=== PATIENT | female | born 1940 | race Asian ===

== ENCOUNTER 2020-07-22 12:01 | Outpatient (REF) | payer MEDICARE, SELFPAY ==
--- NOTE | 2020-07-22 12:10 | XR_ITS ---
EXAMINATION: XR CHEST CLINICAL INFORMATION: Dyspnea COMPARISON: CT of November 07, 2017 and chest x-ray of November 07, 2017 TECHNIQUE: 2 views of the chest were obtained. FINDINGS: No significant abnormality is noted involving the heart, lungs, mediastinum, bony thorax or soft tissues. There is some mild elevation posterior aspect of the left hemidiaphragm. IMPRESSION: No acute disease.
== END 2020-07-22 12:02 | disposition home or self-care (01) ==
LOC: HO.XRAY 12:01
PROVIDERS: PCP Internal Medicine; Visit Provider Internal Medicine
DX: R06.00 Dyspnea, unspecified (principal)
CPT/HCPCS: 71046

== ENCOUNTER 2020-10-14 07:58 | Outpatient (REF) | payer MEDICARE, SELFPAY ==
[2020-10-14 08:39] LABS: MANUAL DIFF FLAG NO
[2020-10-14 08:41] LABS: Basophils Percent Auto 0.3 % (0-2); Eosinophils Absolute Auto 0.2 X10*3/uL (0.0-0.4); Eosinophils Percent Auto 2.6 % (0-4); Hematocrit 34.7 % (37-47); Hemoglobin 11.6 g/dl (12.0-16.0); Imm Gran Abs Auto 0.02 X10*3/uL (0.00-0.03); Imm Gran Pct Auto 0.3 % (0.0-0.4); Lymphocytes Absolute Auto 2.5 X10*3/uL (1.2-4.9); Lymphocytes Percent Auto 36.7 % (20-40); Mean Corpuscular HGB Conc 33.4 g/dl (31.0-35.0); Mean Corpuscular Hemoglobin 30.9 pg (27.0-33.0); Mean Corpuscular Volume 92.5 fL (80-98); Mean Platelet Volume 9.4 fL (9.4-12.3); Monocytes Absolute Auto 0.5 X10*3/uL (0.1-1.2); Monocytes Percent Auto 7.6 % (2-11); Neutrophils Absolute Auto 3.6 X10*3/uL (2.0-8.3); Neutrophils Percent Auto 52.5 % (45-73); Platelet Count 306 X10*3/uL (160-400); Red Blood Count 3.75 X10*6/uL (4.20-5.50); Red Cell Distribution Width 13.5 % (11.0-16.0); White Blood Count 6.8 X10*3/uL (4.8-10.8)
[2020-10-14 09:15] LABS: Glucose Urine UA NEG (NEG); Leukocyte Esterase Urine 1+ (NEG); Nitrite Urine NEG (NEG); PH 6.5 (5.0-8.0); Specific Gravity - Urine 1.015 (1.005-1.025); Urine Blood NEG (NEG); Urine Ketones NEG (NEG); Urine Protein NEG (NEG-TRACE)
[2020-10-14 09:16] LABS: Appearance Urine CLEAR; Color Urine YELLOW
[2020-10-14 09:26] LABS: RBC Urine 0-2 /HPF (0); Squamous Epithelial Cell Urine 1+ /LPF
[2020-10-14 09:30] LABS: Alanine Aminotransferase 15 U/L (0-31); Albumin Level 4.3 g/dL (3.5-5.0); Alkaline Phosphatase 37 U/L (39-117); Anion Gap 16 (12-20); Aspartate Amino Transferase 22 U/L (5-31); Bilirubin Total 0.6 mg/dL (0.0-1.0); Blood Urea Nitrogen 16 mg/dL (9-16); Calcium 9.3 mg/dL (8.4-10.2); Carbon Dioxide 25 mmol/L (22-29); Chloride 104 mmol/L (96-108); Cholesterol 145 mg/dL; Estimated Glomerular Filt Rate 46; Glucose Fasting 105 mg/dL (60-99); HDL Cholesterol 52 mg/dL; LDL Cholesterol Calculated 74 mg/dl; Potassium 4.2 mmol/l (3.3-5.1); Sodium 141 mmol/L (135-145); Total Protein 7.2 g/dL (6.5-8.0); Triglycerides 99 mg/dL
[2020-10-14 09:42] LABS: Creatinine Urine 56.22 mg/dL; Microalbum/Creatinine Ratio Ur 14.2 ug/mg cr
[2020-10-14 09:53] LABS: TSH reflex Free T4 0.74 mIU/mL (0.32-4.0)
== END 2020-10-14 07:59 | disposition home or self-care (01) ==
LOC: HO.LAB 07:58
PROVIDERS: PCP Internal Medicine; Visit Provider Internal Medicine
DX: E11.22 Type 2 diabetes mellitus with diabetic chronic kidney disease (principal); I12.9 Hypertensive chronic kidney disease with stage 1 through stage 4 chronic kidney disease, or unspecified chronic kidney disease; N18.2 Chronic kidney disease, stage 2 (mild); Z79.4 Long term (current) use of insulin; E78.00 Pure hypercholesterolemia, unspecified; K21.9 Gastro-esophageal reflux disease without esophagitis; M81.0 Age-related osteoporosis without current pathological fracture
CPT/HCPCS: 36415; 80053; 80061; 81001; 82043; 82306; 84443; 85025; 87086; 87147

== ENCOUNTER 2020-11-09 | Outpatient (REF) | payer MEDICARE, MEDICAID, SELFPAY | END 2020-11-09 00:01 | disposition home or self-care (01) | LOC: HO.VC | PROVIDERS: Visit Provider Internal Medicine | DX: Z23 Encounter for immunization (principal) | CPT/HCPCS: 0011A ==

== ENCOUNTER 2020-11-16 09:27 | Outpatient (REF) | payer MEDICARE, SELFPAY ==
--- NOTE | ~2020-11-16 | MM_ITS ---
EXAMINATION: MM SCREENING DIGITAL BREAST TOMOSYNTHESIS, BILATERAL CLINICAL INFORMATION: Screening. Asymptomatic. The lifetime risk of breast cancer based on the Tyrer-Cuzick Model is 1.5%. COMPARISON: Mammography: 04/08/2019 and studies dating back to 03/06/2013 TECHNIQUE: Digital breast tomosynthesis is performed in both the craniocaudal and mediolateral oblique views along with computer-aided detection (CAD). Synthesized 2D images are generated from the tomosynthesis. FINDINGS: There are scattered areas of fibroglandular density (ACR BI-RADS breast composition Category b). There is a stable parenchymal pattern present with multiplicity and bilaterality of calcifications as well as grouping of stable calcifications anterior aspect of the left breast associated with a density. A few new vascular calcifications are seen mid left breast on mediolateral oblique view just inferior to nipple line. MM/MM tomosynthesis screening BI IMPRESSION: There are no significant changes from prior study. ASSESSMENT: BI-RADS 2: Benign. RECOMMENDATION: Routine annual mammography screening. This patient's information was entered into a reminder system with a target due date for their next mammogram.
== END 2020-11-16 09:28 | disposition home or self-care (01) ==
LOC: HO.MAMMO 09:27
PROVIDERS: PCP Internal Medicine; Visit Provider Internal Medicine
DX: Z12.31 Encounter for screening mammogram for malignant neoplasm of breast (principal)
CPT/HCPCS: 77063; 77067

== ENCOUNTER 2020-12-07 | Outpatient (REF) | payer MEDICARE, MEDICAID, SELFPAY | END 2020-12-07 00:01 | disposition home or self-care (01) | LOC: HO.VC | PROVIDERS: Visit Provider Internal Medicine | DX: Z23 Encounter for immunization (principal) | CPT/HCPCS: 0012A ==

== ENCOUNTER 2020-12-31 07:17 | Outpatient (REF) | payer MEDICARE, SELFPAY ==
[2020-12-31 07:52] LABS: Basophils Percent Auto 0.5 % (0-2); Eosinophils Absolute Auto 0.4 X10*3/uL (0.0-0.4); Eosinophils Percent Auto 5.4 % (0-4); Hematocrit 36.4 % (37-47); Hemoglobin 12.1 g/dl (12.0-16.0); Imm Gran Abs Auto 0.02 X10*3/uL (0.00-0.03); Imm Gran Pct Auto 0.2 % (0.0-0.4); Lymphocytes Absolute Auto 3.1 X10*3/uL (1.2-4.9); Lymphocytes Percent Auto 37.4 % (20-40); MANUAL DIFF FLAG NO; Mean Corpuscular HGB Conc 33.2 g/dl (31.0-35.0); Mean Corpuscular Hemoglobin 30.9 pg (27.0-33.0); Mean Corpuscular Volume 92.9 fL (80-98); Mean Platelet Volume 9.4 fL (9.4-12.3); Monocytes Absolute Auto 0.7 X10*3/uL (0.1-1.2); Monocytes Percent Auto 7.9 % (2-11); Neutrophils Percent Auto 48.6 % (45-73); Platelet Count 301 X10*3/uL (160-400); Red Blood Count 3.92 X10*6/uL (4.20-5.50); Red Cell Distribution Width 12.8 % (11.0-16.0); White Blood Count 8.2 X10*3/uL (4.8-10.8)
[2020-12-31 08:03] LABS: Glucose Urine UA NEG (NEG); Leukocyte Esterase Urine 1+ (NEG); Nitrite Urine NEG (NEG); Specific Gravity - Urine 1.015 (1.005-1.025); UACC Culture Trigger YES; Urine Blood NEG (NEG); Urine Ketones NEG (NEG); Urine Protein NEG (NEG-TRACE)
[2020-12-31 08:07] LABS: Appearance Urine CLEAR; Color Urine YELLOW
[2020-12-31 08:25] LABS: Creatinine Urine 57.21 mg/dL; Microalbum/Creatinine Ratio Ur 8.7 ug/mg cr
[2020-12-31 08:34] LABS: Bacteria Urine TRACE /LPF; RBC Urine 0-2 /HPF (0); Squamous Epithelial Cell Urine 1+ /LPF
[2020-12-31 09:33] LABS: Alanine Aminotransferase 15 U/L (0-31); Albumin Level 4.3 g/dL (3.5-5.0); Alkaline Phosphatase 37 U/L (39-117); Anion Gap 15 (12-20); Aspartate Amino Transferase 20 U/L (5-31); Bilirubin Total 0.6 mg/dL (0.0-1.0); Blood Urea Nitrogen 20 mg/dL (9-16); Calcium 9.5 mg/dL (8.4-10.2); Carbon Dioxide 27 mmol/L (22-29); Chloride 105 mmol/L (96-108); Cholesterol 132 mg/dL; Estimated Glomerular Filt Rate 43; Glucose Fasting 87 mg/dL (60-99); HDL Cholesterol 39 mg/dL; LDL Cholesterol Calculated 72 mg/dl; Potassium 4.5 mmol/L (3.3-5.1); Sodium 142 mmol/L (135-145); Total Protein 7.2 g/dL (6.5-8.0); Triglycerides 106 mg/dL
[2020-12-31 09:53] LABS: TSH reflex Free T4 1.18 uIU/mL (0.32-4.0)
== END 2020-12-31 07:18 | disposition home or self-care (01) ==
LOC: HO.LAB 07:17
PROVIDERS: PCP Internal Medicine; Visit Provider Internal Medicine
DX: E78.00 Pure hypercholesterolemia, unspecified (principal); E11.22 Type 2 diabetes mellitus with diabetic chronic kidney disease; I12.9 Hypertensive chronic kidney disease with stage 1 through stage 4 chronic kidney disease, or unspecified chronic kidney disease; N18.2 Chronic kidney disease, stage 2 (mild); Z79.4 Long term (current) use of insulin
CPT/HCPCS: 36415; 80053; 80061; 81001; 81003; 82043; 84443; 85025; 87086; 87147

== ENCOUNTER → 2021-02-27 07:45 | Outpatient (REF) | payer MEDICARE, SELFPAY ==
--- NOTE | 2021-02-27 07:49 | CA_ITS ---
Transthoracic Echocardiogram Patient (Last, First, Middle): Sujatha Wolfe D Gender: Female Date of : 1940 Age: 81 Procedure Date: 02/27/2021 Procedure Type: Transthoracic Echocardiogram Location: OP Height: 144.78 cm Weight: 49.9 kg BSA: 1.39 m2 Heart Rate: bpm BP: 120 / 80 mmHg Chief Airport Guide: JENNY Referring MD: Todd Thompson MD Symptoms: R06.00 - Dyspnea, unspecified Study Quality: Fair ECG Rhythm: Sinus Conclusions: - The left ventricular systolic function is normal. The visually estimated ejection fraction is between 60-65%. - There is mild calcification of the aortic valve. - No obvious valvular pathology seen on this study. Findings Left Ventricle Normal left ventricular cavity size. There is normal left ventricular wall thickness. The left ventricular systolic function is normal. The visually estimated ejection fraction is between 60-65%. The calculated ejection fraction is 61% by biplane method. There is no evidence of regional wall motion abnormalities. E/E prime ratio is between 8 and 15 consistent with indeterminate filling pressures. Evidence suggests grade I (mild) diastolic dysfunction. Right Ventricle Normal right ventricular cavity size and systolic function. Atria The left atrium is normal in size. The right atrium is normal in size. Aortic Valve There is a normal trileaflet aortic valve. There is mild calcification of the aortic valve. There is no aortic valve stenosis. There is no aortic valve regurgitation. Mitral Valve There is mild mitral annular calcification. There is no mitral valve regurgitation. There is no mitral valve stenosis. Pulmonic Valve The pulmonic valve was not well visualized. Tricuspid Valve There is trace tricuspid valve regurgitation. The pulmonary artery systolic pressure is normal. Great Vessels The aortic annulus, sinuses of valsalva, and asc aorta are normal in size. Venous The inferior vena cava is normal in size and collapses greater than 50% with inspiration. Pericardium/Pleural Prominent epicardial adipose tissue noted. There is no evidence of pericardial effusion. Prior Study Comparison No significant change compared to prior study dated: 08/15/2013. Recommendations, Care & Conclusions No obvious valvular pathology seen on this study. Measurements 2D Linear Measurements IVSd: 0.89 0.6-0.9/0.6-1.0 cm LVIDd: 4.01 3.9-5.3/4.2-5.9 cm LVIDd Index: 2.88 2.4-3.2/2.2-3.1 cm/m2 LVIDs: 2.62 2.0-3.6 cm LVPWd: 1.34 0.7-1.1 cm Ao Root: 2.60 2.1-3.5 cm LA Diam: 2.60 2.7-3.8/3.0-4.0 cm LAIDs Index: 1.87 1.5-2.3 cm/m2 LV Mass: 185.51 67-162/88-224 g LV Mass Index: 133.46 43-95/49-115 g/m2 LVOT Diam: 2.00 3.0+(-)1.3 cm 2D Systolic Function EF 4C: 74.30 >55% EF 2C: 48.30 >55% EF BiP: 61.00 >55% Mitral Valve MV Pk E: 0.78 MV PK A: 1.11 MV Decel Time: 125.00 E/A: 0.70 E'Lateral: 6.96 E'Medial: 5.87 E/E' Med: 13.30 E/E' Lat: 11.20 PHT: 37.00 MVA PHT: 5.95 Decel Carlton: 6.25 Aortic Valve AoV Pk Jimy: 1.13 AoV Pk Grad: 5.00 LVOT LVOT Pk Jimy: 0.69 LVOT Mn Jimy: 0.48 LVOT VTI: 0.14 LVOT Pk Grad: 2.00 LVOT Mn Grad: 1.00 LVOT Diam: 2.00 LVOT Area: 3.14 Diastolic Function MV Pk E: 0.78 MV Pk A: 1.11 E/A: 0.70 E'Medial: 5.87 E/E' Med: 13.30 E' Laterial: 6.96 E/E' Lat: 11.20 Tricuspid Valve RA Press: 3.00 Great Vessels Aorta Ao Root-2D: 2.60 2.0-3.7 cm Ao Asc: 3.10 2.1-3.4 cm Updated in Other Vendor System with Status of Final Liban Ellis MD electronically signed on 02/28/2021 4:16:42 PM with status of Final
== END ==
LOC: HO.CARD 07:45
PROVIDERS: PCP Internal Medicine; Visit Provider Internal Medicine
DX: R06.00 Dyspnea, unspecified (principal)
CPT/HCPCS: 93306

== ENCOUNTER 2021-04-04 07:44 | Outpatient (REF) | payer MEDICARE, SELFPAY ==
[2021-04-04 08:44] LABS: MANUAL DIFF FLAG NO
[2021-04-04 08:49] LABS: Basophils Percent Auto 0.4 % (0-2); Eosinophils Absolute Auto 0.3 X10*3/uL (0.0-0.4); Eosinophils Percent Auto 3.6 % (0-4); Hematocrit 37.3 % (37-47); Hemoglobin 12.2 g/dl (12.0-16.0); Imm Gran Abs Auto 0.02 X10*3/uL (0.00-0.03); Imm Gran Pct Auto 0.3 % (0.0-0.4); Lymphocytes Absolute Auto 2.6 X10*3/uL (1.2-4.9); Lymphocytes Percent Auto 34.5 % (20-40); Mean Corpuscular HGB Conc 32.7 g/dl (31.0-35.0); Mean Corpuscular Hemoglobin 30.6 pg (27.0-33.0); Mean Corpuscular Volume 93.5 fL (80-98); Mean Platelet Volume 9.7 fL (9.4-12.3); Monocytes Absolute Auto 0.7 X10*3/uL (0.1-1.2); Monocytes Percent Auto 8.7 % (2-11); Neutrophils Absolute Auto 3.9 X10*3/uL (2.0-8.3); Neutrophils Percent Auto 52.5 % (45-73); Platelet Count 328 X10*3/uL (160-400); Red Blood Count 3.99 X10*6/uL (4.20-5.50); Red Cell Distribution Width 12.9 % (11.0-16.0); White Blood Count 7.5 X10*3/uL (4.8-10.8)
[2021-04-04 08:55] LABS: Estimated Average Glucose 123 mg/dL; Hemoglobin A1c % 5.9 %
[2021-04-04 09:02] LABS: Glucose Urine UA NEG (NEG); Leukocyte Esterase Urine TRACE (NEG); Nitrite Urine NEG (NEG); UACC Culture Trigger YES; Urine Blood TRACE (NEG); Urine Ketones NEG (NEG); Urine Protein NEG (NEG-TRACE)
[2021-04-04 09:05] LABS: Appearance Urine CLEAR; Color Urine YELLOW
[2021-04-04 09:10] LABS: Bacteria Urine 2+ /LPF; Renal Epithelial Cells Urine TRACE /LPF; Squamous Epithelial Cell Urine TRACE /LPF
[2021-04-04 09:11] LABS: Mucus Urine TRACE /LPF
[2021-04-04 09:13] LABS: Alanine Aminotransferase 9 U/L (0-31); Albumin Level 4.4 g/dL (3.5-5.0); Alkaline Phosphatase 38 U/L (39-117); Anion Gap 13 (12-20); Aspartate Amino Transferase 19 U/L (5-31); Bilirubin Total 0.2 mg/dL (0.0-1.0); Blood Urea Nitrogen 19 mg/dL (9-16); Calcium 9.8 mg/dL (8.4-10.2); Carbon Dioxide 27 mmol/L (22-29); Chloride 109 mmol/L (96-108); Cholesterol 142 mg/dL; Estimated Glomerular Filt Rate 46; Glucose Fasting 113 mg/dL (60-99); HDL Cholesterol 41 mg/dL; LDL Cholesterol Calculated 71 mg/dl; Potassium 4.9 mmol/L (3.3-5.1); Sodium 144 mmol/L (135-145); Total Protein 7.4 g/dL (6.5-8.0); Triglycerides 152 mg/dL
[2021-04-04 09:23] LABS: TSH reflex Free T4 0.64 uIU/mL (0.32-4.0); Vitamin D 25-OH Total 59.6 ng/mL (>30)
[2021-04-04 09:29] LABS: Creatinine Urine 105.06 mg/dL; Microalbum/Creatinine Ratio Ur 22.8 ug/mg cr
== END 2021-04-04 07:45 | disposition home or self-care (01) ==
LOC: HO.LAB 07:44
PROVIDERS: PCP Internal Medicine; Visit Provider Internal Medicine
DX: I12.9 Hypertensive chronic kidney disease with stage 1 through stage 4 chronic kidney disease, or unspecified chronic kidney disease (principal); N18.32 Chronic kidney disease, stage 3b; E11.22 Type 2 diabetes mellitus with diabetic chronic kidney disease; E78.00 Pure hypercholesterolemia, unspecified; K21.9 Gastro-esophageal reflux disease without esophagitis; E55.9 Vitamin D deficiency, unspecified; Z79.4 Long term (current) use of insulin
CPT/HCPCS: 36415; 80053; 80061; 81001; 81003; 82043; 82306; 83036; 84443; 85025; 87086; 87088; 87186

== ENCOUNTER 2021-07-14 08:33 | Outpatient (REF) | payer MEDICARE, SELFPAY ==
[2021-07-14 08:53] LABS: MANUAL DIFF FLAG NO
[2021-07-14 10:00] LABS: Basophils Absolute Auto 0.1 X10*3/uL (0.0-0.2); Basophils Percent Auto 0.6 % (0-2); Eosinophils Absolute Auto 0.3 X10*3/uL (0.0-0.4); Hematocrit 36.8 % (37-47); Hemoglobin 12.5 g/dl (12.0-16.0); Imm Gran Abs Auto 0.03 X10*3/uL (0.00-0.03); Imm Gran Pct Auto 0.4 % (0.0-0.4); Lymphocytes Absolute Auto 2.6 X10*3/uL (1.2-4.9); Lymphocytes Percent Auto 31.3 % (20-40); Mean Corpuscular Hemoglobin 31.1 pg (27.0-33.0); Mean Corpuscular Volume 91.5 fL (80-98); Mean Platelet Volume 9.7 fL (9.4-12.3); Monocytes Absolute Auto 0.6 X10*3/uL (0.1-1.2); Monocytes Percent Auto 7.2 % (2-11); Neutrophils Absolute Auto 4.7 X10*3/uL (2.0-8.3); Neutrophils Percent Auto 56.5 % (45-73); Platelet Count 353 X10*3/uL (160-400); Red Blood Count 4.02 X10*6/uL (4.20-5.50); Red Cell Distribution Width 12.8 % (11.0-16.0); White Blood Count 8.3 X10*3/uL (4.8-10.8)
[2021-07-14 10:12] LABS: Estimated Average Glucose 126 mg/dL
[2021-07-14 10:27] LABS: Alanine Aminotransferase 13 U/L (0-31); Albumin Level 4.4 g/dL (3.5-5.0); Alkaline Phosphatase 41 U/L (39-117); Anion Gap 11 (12-20); Aspartate Amino Transferase 21 U/L (5-31); Bilirubin Total 0.6 mg/dL (0.0-1.0); Blood Urea Nitrogen 20 mg/dL (9-16); Calcium 10.3 mg/dL (8.4-10.2); Carbon Dioxide 29 mmol/L (22-29); Chloride 104 mmol/L (96-108); Cholesterol 152 mg/dL; Estimated Glomerular Filt Rate 43; Glucose Fasting 99 mg/dL (60-99); HDL Cholesterol 40 mg/dL; LDL Cholesterol Calculated 86 mg/dl; Sodium 139 mmol/L (135-145); Total Protein 7.4 g/dL (6.5-8.0); Triglycerides 130 mg/dL
[2021-07-14 10:38] LABS: Appearance Urine CLEAR; Color Urine YELLOW; Glucose Urine UA NEG (NEG); Leukocyte Esterase Urine 1+ (NEG); Nitrite Urine NEG (NEG); Specific Gravity - Urine <= 1.005 (1.005-1.025); UACC Culture Trigger YES; Urine Blood NEG (NEG); Urine Ketones NEG (NEG); Urine Protein NEG (NEG-TRACE)
[2021-07-14 10:46] LABS: Creatinine Urine 33.29 mg/dL
[2021-07-14 11:03] LABS: RBC Urine 0 /HPF (0); Renal Epithelial Cells Urine 1+ /LPF; Squamous Epithelial Cell Urine TRACE /LPF
== END 2021-07-14 08:34 | disposition home or self-care (01) ==
LOC: HO.LAB 08:33
PROVIDERS: PCP Internal Medicine; Visit Provider Internal Medicine
DX: I12.9 Hypertensive chronic kidney disease with stage 1 through stage 4 chronic kidney disease, or unspecified chronic kidney disease (principal); N18.32 Chronic kidney disease, stage 3b; E11.22 Type 2 diabetes mellitus with diabetic chronic kidney disease; N18.2 Chronic kidney disease, stage 2 (mild); K21.9 Gastro-esophageal reflux disease without esophagitis; R06.00 Dyspnea, unspecified; E78.00 Pure hypercholesterolemia, unspecified; Z20.822 Contact with and (suspected) exposure to COVID-19; Z79.4 Long term (current) use of insulin
CPT/HCPCS: 36415; 80053; 80061; 81001; 82043; 83036; 84443; 85025; 87086; 87147; U0005

== ENCOUNTER 2021-10-16 08:23 | Outpatient (REF) | payer MEDICARE, SELFPAY ==
[2021-10-16 08:37] LABS: MANUAL DIFF FLAG NO
[2021-10-16 09:05] LABS: Basophils Percent Auto 0.4 % (0-2); Eosinophils Absolute Auto 0.2 X10*3/uL (0.0-0.4); Eosinophils Percent Auto 2.5 % (0-4); Hematocrit 37.8 % (37.0-47.0); Hemoglobin 12.5 g/dl (12.0-16.0); Imm Gran Abs Auto 0.04 X10*3/uL (0.00-0.03); Imm Gran Pct Auto 0.5 % (0.0-0.4); Lymphocytes Percent Auto 38.7 % (20-40); Mean Corpuscular HGB Conc 33.1 g/dl (31.0-35.0); Mean Corpuscular Hemoglobin 30.9 pg (27.0-33.0); Mean Corpuscular Volume 93.3 fL (80.0-98.0); Mean Platelet Volume 9.4 fL (9.4-12.3); Monocytes Absolute Auto 0.6 X10*3/uL (0.1-1.2); Monocytes Percent Auto 7.6 % (2-11); Neutrophils Absolute Auto 3.8 x10*3/uL (2.0-8.3); Neutrophils Percent Auto 50.3 % (45-73); Platelet Count 360 X10*3/uL (160-400); Red Blood Count 4.05 X10*6/uL (4.20-5.50); Red Cell Distribution Width 12.5 % (11.0-16.0); White Blood Count 7.6 X10*3/uL (4.8-10.8)
[2021-10-16 09:08] LABS: Appearance Urine CLEAR; Color Urine YELLOW; Glucose Urine UA NEG (NEG); Leukocyte Esterase Urine 1+ (NEG); Nitrite Urine NEG (NEG); Specific Gravity - Urine 1.015 (1.005-1.025); UACC Culture Trigger YES; Urine Blood NEG (NEG); Urine Ketones NEG (NEG); Urine Protein NEG (NEG-TRACE)
[2021-10-16 09:16] LABS: Estimated Average Glucose 128 mg/dL; Hemoglobin A1c % 6.1 %
[2021-10-16 09:21] LABS: Creatinine Urine 107.33 mg/dL; Microalbum/Creatinine Ratio Ur 15.8 ug/mg cr
[2021-10-16 09:32] LABS: Bacteria Urine TRACE /LPF; Mucus Urine 1+ /LPF; RBC Urine 0 /HPF (0); Squamous Epithelial Cell Urine TRACE /LPF
[2021-10-16 09:33] LABS: Alanine Aminotransferase 18 U/L (0-31); Albumin Level 4.1 g/dL (3.5-5.0); Alkaline Phosphatase 41 U/L (39-117); Anion Gap 11 (12-20); Aspartate Amino Transferase 20 U/L (5-31); Bilirubin Total 0.4 mg/dL (0.0-1.0); Blood Urea Nitrogen 19 mg/dL (9-16); Calcium 10.1 mg/dL (8.4-10.2); Carbon Dioxide 30 mmol/L (22-29); Chloride 104 mmol/L (96-108); Cholesterol 149 mg/dL; Estimated Glomerular Filt Rate 41; Glucose Fasting 99 mg/dL (60-99); HDL Cholesterol 38 mg/dL; LDL Cholesterol Calculated 92 mg/dl; Potassium 4.6 mmol/L (3.3-5.1); Sodium 140 mmol/L (135-145); Total Protein 7.2 g/dL (6.5-8.0); Triglycerides 99 mg/dL
[2021-10-16 09:56] LABS: TSH reflex Free T4 0.83 uIU/mL (0.32-4.0); Vitamin D 25-OH Total 55.8 ng/mL (>30)
== END 2021-10-16 08:24 | disposition home or self-care (01) ==
LOC: HO.LAB 08:23
PROVIDERS: PCP Internal Medicine; Visit Provider Internal Medicine
DX: I10 Essential (primary) hypertension (principal); E78.00 Pure hypercholesterolemia, unspecified; E11.9 Type 2 diabetes mellitus without complications; E55.9 Vitamin D deficiency, unspecified
CPT/HCPCS: 36415; 80053; 80061; 81001; 82043; 82306; 83036; 84443; 85025; 87086

== ENCOUNTER 2021-11-17 10:38 | Outpatient (REF) | payer MEDICARE, SELFPAY ==
--- NOTE | ~2021-11-17 | MM_ITS ---
EXAMINATION: MM SCREENING DIGITAL BREAST TOMOSYNTHESIS, BILATERAL CLINICAL INFORMATION: Screening. Asymptomatic. The lifetime risk of breast cancer based on the Tyrer-Cuzick Model is under 2%. COMPARISON: Mammography: 11/16/2020, 04/08/2019, 02/24/2018 TECHNIQUE: Digital breast tomosynthesis is performed in both the craniocaudal and mediolateral oblique views along with computer-aided detection (CAD). Synthesized 2D images are generated from the tomosynthesis. Additional right MLO view is provided. FINDINGS: There are scattered areas of fibroglandular density (ACR BI-RADS breast composition Category b). There is no interval mass or architectural abnormality. Oil cyst mid lower inner right breast again seen and stable circumscribed nodule again noted right breast anterior 11:00 position. Neither breast shows interval mass or architectural abnormality or abnormal calcifications. There are bilateral vascular calcifications and some old grouped coarse calcifications retroareolar 6:00 left breast. MM/MM tomosynthesis screening BI IMPRESSION: No significant changes from prior studies. ASSESSMENT: BI-RADS 2: Benign RECOMMENDATION: Routine annual mammography screening. This patient's information was entered into a reminder system with a target due date for their next mammogram.
== END 2021-11-17 10:39 | disposition home or self-care (01) ==
LOC: HO.MAMMO 10:38
PROVIDERS: Visit Provider Internal Medicine
DX: Z12.31 Encounter for screening mammogram for malignant neoplasm of breast (principal)
CPT/HCPCS: 77063; 77067

== ENCOUNTER 2022-01-16 08:26 | Outpatient (REF) | payer OTHER, SELFPAY ==
[2022-01-16 08:53] LABS: MANUAL DIFF FLAG NO
[2022-01-16 09:35] LABS: Basophils Absolute Auto 0.1 X10*3/uL (0.0-0.2); Basophils Percent Auto 0.6 % (0-2); Eosinophils Absolute Auto 0.2 X10*3/uL (0.0-0.4); Eosinophils Percent Auto 2.7 % (0-4); Hemoglobin 12.7 g/dl (12.0-16.0); Imm Gran Abs Auto 0.02 X10*3/uL (0.00-0.03); Imm Gran Pct Auto 0.3 % (0.0-0.4); Lymphocytes Absolute Auto 2.6 X10*3/uL (1.2-4.9); Lymphocytes Percent Auto 32.9 % (20-40); Mean Corpuscular HGB Conc 33.4 g/dl (31.0-35.0); Mean Corpuscular Hemoglobin 31.1 pg (27.0-33.0); Mean Corpuscular Volume 93.1 fL (80.0-98.0); Mean Platelet Volume 9.4 fL (9.4-12.3); Monocytes Absolute Auto 0.6 X10*3/uL (0.1-1.2); Monocytes Percent Auto 7.7 % (2-11); Neutrophils Absolute Auto 4.4 x10*3/uL (2.0-8.3); Neutrophils Percent Auto 55.8 % (45-73); Platelet Count 373 X10*3/uL (160-400); Red Blood Count 4.08 X10*6/uL (4.20-5.50); Red Cell Distribution Width 12.7 % (11.0-16.0); White Blood Count 7.9 X10*3/uL (4.8-10.8)
[2022-01-16 09:41] LABS: Appearance Urine CLEAR; Glucose Urine UA NEG (NEG); Leukocyte Esterase Urine NEG (NEG); Nitrite Urine NEG (NEG); PH 6.5 (5.0-8.0); Specific Gravity - Urine <= 1.005 (1.005-1.025); Urine Blood NEG (NEG); Urine Ketones NEG (NEG); Urine Protein NEG (NEG-TRACE)
[2022-01-16 09:42] LABS: Estimated Average Glucose 126 mg/dL
[2022-01-16 09:42] LABS: Color Urine COLORLESS
[2022-01-16 10:15] LABS: Creatinine Urine 26.75 mg/dL; Microalbum/Creatinine Ratio Ur 59.8 ug/mg cr
[2022-01-16 10:23] LABS: Alanine Aminotransferase 13 U/L (0-31); Albumin Level 4.3 g/dL (3.5-5.0); Alkaline Phosphatase 38 U/L (39-117); Anion Gap 13 (12-20); Aspartate Amino Transferase 20 U/L (5-31); Bilirubin Total 0.4 mg/dL (0.0-1.0); Blood Urea Nitrogen 19 mg/dL (9-16); Calcium 10.6 mg/dL (8.4-10.2); Carbon Dioxide 29 mmol/L (22-29); Chloride 103 mmol/L (96-108); Cholesterol 163 mg/dL; Estimated Glomerular Filt Rate 45; Glucose Fasting 93 mg/dL (60-99); HDL Cholesterol 41 mg/dL; LDL Cholesterol Calculated 95 mg/dl; Sodium 140 mmol/L (135-145); Total Protein 7.5 g/dL (6.5-8.0); Triglycerides 138 mg/dL
[2022-01-16 10:35] LABS: TSH reflex Free T4 0.79 uIU/mL (0.32-4.0); Vitamin D 25-OH Total 72.6 ng/mL (>30)
== END 2022-01-16 08:27 | disposition home or self-care (01) ==
LOC: HO.LAB 08:26
PROVIDERS: PCP Internal Medicine; Visit Provider Internal Medicine
DX: E11.9 Type 2 diabetes mellitus without complications (principal); I10 Essential (primary) hypertension; E78.00 Pure hypercholesterolemia, unspecified; E55.9 Vitamin D deficiency, unspecified
CPT/HCPCS: 36415; 80053; 80061; 81003; 82043; 82306; 83036; 84443; 85025

== ENCOUNTER 2022-04-12 08:25 | Outpatient (REF) | payer OTHER, SELFPAY ==
[2022-04-12 08:42] LABS: MANUAL DIFF FLAG NO
[2022-04-12 09:01] LABS: Basophils Percent Auto 0.4 % (0-2); Eosinophils Absolute Auto 0.2 X10*3/uL (0.0-0.4); Eosinophils Percent Auto 1.6 % (0-4); Hematocrit 38.1 % (37.0-47.0); Hemoglobin 12.6 g/dl (12.0-16.0); Imm Gran Abs Auto 0.06 X10*3/uL (0.00-0.03); Imm Gran Pct Auto 0.6 % (0.0-0.4); Lymphocytes Absolute Auto 2.4 X10*3/uL (1.2-4.9); Lymphocytes Percent Auto 25.9 % (20-40); Mean Corpuscular HGB Conc 33.1 g/dl (31.0-35.0); Mean Corpuscular Hemoglobin 30.6 pg (27.0-33.0); Mean Corpuscular Volume 92.5 fL (80.0-98.0); Mean Platelet Volume 9.4 fL (9.4-12.3); Monocytes Absolute Auto 0.7 X10*3/uL (0.1-1.2); Neutrophils Absolute Auto 5.9 x10*3/uL (2.0-8.3); Neutrophils Percent Auto 63.5 % (45-73); Platelet Count 360 X10*3/uL (160-400); Red Blood Count 4.12 X10*6/uL (4.20-5.50); Red Cell Distribution Width 12.5 % (11.0-16.0); White Blood Count 9.3 X10*3/uL (4.8-10.8)
[2022-04-12 09:37] LABS: Alanine Aminotransferase 13 U/L (0-31); Albumin Level 4.4 g/dL (3.5-5.0); Alkaline Phosphatase 52 U/L (39-117); Anion Gap 13 (12-20); Aspartate Amino Transferase 21 U/L (5-31); Bilirubin Total 0.3 mg/dL (0.0-1.0); Blood Urea Nitrogen 24 mg/dL (9-16); Calcium 9.9 mg/dL (8.4-10.2); Carbon Dioxide 26 mmol/L (22-29); Chloride 105 mmol/L (96-108); Cholesterol 137 mg/dL; Estimated Glomerular Filt Rate 41; Glucose Fasting 122 mg/dL (60-99); HDL Cholesterol 42 mg/dL; LDL Cholesterol Calculated 65 mg/dl; Potassium 4.7 mmol/L (3.3-5.1); Sodium 139 mmol/L (135-145); Total Protein 7.7 g/dL (6.5-8.0); Triglycerides 151 mg/dL
[2022-04-12 09:41] LABS: Estimated Average Glucose 128 mg/dL; Hemoglobin A1c % 6.1 %
[2022-04-12 10:00] LABS: TSH reflex Free T4 0.91 uIU/mL (0.32-4.0); Vitamin D 25-OH Total 76.1 ng/mL (>30)
[2022-04-12 10:43] LABS: Appearance Urine CLEAR; Color Urine YELLOW; Glucose Urine UA NEG (NEG); Leukocyte Esterase Urine 1+ (NEG); Nitrite Urine NEG (NEG); PH 5.5 (5.0-8.0); UACC Culture Trigger YES; Urine Blood NEG (NEG); Urine Ketones NEG (NEG); Urine Protein NEG (NEG-TRACE)
[2022-04-12 11:08] LABS: Bacteria Urine TRACE /LPF; Squamous Epithelial Cell Urine TRACE /LPF
[2022-04-12 11:17] LABS: Creatinine Urine 67.82 mg/dL; Microalbum/Creatinine Ratio Ur 14.7 ug/mg cr
== END 2022-04-12 08:26 | disposition home or self-care (01) ==
LOC: HO.LAB 08:25
PROVIDERS: PCP Internal Medicine; Visit Provider Internal Medicine
DX: E78.00 Pure hypercholesterolemia, unspecified (principal); E55.9 Vitamin D deficiency, unspecified; I10 Essential (primary) hypertension; E11.9 Type 2 diabetes mellitus without complications
CPT/HCPCS: 36415; 80053; 80061; 81001; 82043; 82306; 83036; 84443; 85025; 87086; 87147

== ENCOUNTER 2022-07-05 08:31 | Outpatient (REF) | payer OTHER, SELFPAY ==
[2022-07-05 08:43] LABS: MANUAL DIFF FLAG NO
[2022-07-05 09:27] LABS: Basophils Percent Auto 0.4 % (0-2); Eosinophils Absolute Auto 0.2 X10*3/uL (0.0-0.4); Hematocrit 37.4 % (37.0-47.0); Hemoglobin 12.5 g/dl (12.0-16.0); Imm Gran Abs Auto 0.02 X10*3/uL (0.00-0.03); Imm Gran Pct Auto 0.2 % (0.0-0.4); Lymphocytes Absolute Auto 2.3 X10*3/uL (1.2-4.9); Lymphocytes Percent Auto 28.2 % (20-40); Mean Corpuscular HGB Conc 33.4 g/dl (31.0-35.0); Mean Corpuscular Hemoglobin 30.8 pg (27.0-33.0); Mean Corpuscular Volume 92.1 fL (80.0-98.0); Mean Platelet Volume 9.8 fL (9.4-12.3); Monocytes Absolute Auto 0.7 X10*3/uL (0.1-1.2); Monocytes Percent Auto 8.3 % (2-11); Neutrophils Percent Auto 60.9 % (45-73); Platelet Count 327 X10*3/uL (160-400); Red Blood Count 4.06 X10*6/uL (4.20-5.50); Red Cell Distribution Width 12.8 % (11.0-16.0); White Blood Count 8.2 X10*3/uL (4.8-10.8)
[2022-07-05 10:04] LABS: Alanine Aminotransferase 13 U/L (0-31); Albumin Level 4.4 g/dL (3.5-5.0); Alkaline Phosphatase 43 U/L (39-117); Anion Gap 17 (12-20); Aspartate Amino Transferase 21 U/L (5-31); Bilirubin Total 0.2 mg/dL (0.0-1.0); Blood Urea Nitrogen 16 mg/dL (9-16); Carbon Dioxide 27 mmol/L (22-29); Chloride 101 mmol/L (96-108); Cholesterol 138 mg/dL; Estimated Glomerular Filt Rate 44; Glucose Fasting 91 mg/dL (60-99); HDL Cholesterol 43 mg/dL; LDL Cholesterol Calculated 74 mg/dl; Potassium 4.3 mmol/L (3.3-5.1); Sodium 141 mmol/L (135-145); Total Protein 7.5 g/dL (6.5-8.0); Triglycerides 106 mg/dL
[2022-07-05 10:06] LABS: Estimated Average Glucose 131 mg/dL; Hemoglobin A1c % 6.2 %
[2022-07-05 10:16] LABS: TSH reflex Free T4 0.74 uIU/mL (0.32-4.0); Vitamin D 25-OH Total 68.9 ng/mL (>30)
[2022-07-05 10:44] LABS: Appearance Urine Clear; Color Urine Yellow; Glucose Urine UA Negative (Negative); Leukocyte Esterase Urine Moderate (2+) (Negative); Nitrite Urine Negative (Negative); PH 7.5 (5.0-9.0); UMIC TRIGGER UACC YES; Urine Blood Negative (Negative); Urine Ketones Negative (Negative); Urine Protein Negative (Neg-Trace)
[2022-07-05 11:00] LABS: Bacteria Urine None Seen (None Seen); Hyaline Casts Urine 0-2 /LPF (0-2); RBC Urine 0-2 /HPF (0-2); Squamous Epithelial Cell Urine 0-2 /HPF (0-2); WBC Urine 0-5 /HPF (0-5)
[2022-07-05 11:08] LABS: Creatinine Urine 45.98 mg/dL; Microalbum/Creatinine Ratio Ur 30.4 ug/mg cr
== END 2022-07-05 08:32 | disposition home or self-care (01) ==
LOC: HO.LAB 08:31
PROVIDERS: PCP Internal Medicine; Visit Provider Internal Medicine
DX: I10 Essential (primary) hypertension (principal); E11.9 Type 2 diabetes mellitus without complications; E78.00 Pure hypercholesterolemia, unspecified; E55.9 Vitamin D deficiency, unspecified
CPT/HCPCS: 36415; 80053; 80061; 81001; 82043; 82306; 83036; 84443; 85025

== ENCOUNTER 2022-09-14 08:24 | Outpatient (REF) | payer OTHER, SELFPAY ==
[2022-09-14 08:41] LABS: MANUAL DIFF FLAG NO
[2022-09-14 09:01] LABS: Basophils Percent Auto 0.2 % (0-2); Eosinophils Absolute Auto 0.2 X10*3/uL (0.0-0.4); Eosinophils Percent Auto 1.7 % (0-4); Hematocrit 37.8 % (37.0-47.0); Hemoglobin 12.4 g/dl (12.0-16.0); Imm Gran Abs Auto 0.04 X10*3/uL (0.00-0.03); Imm Gran Pct Auto 0.5 % (0.0-0.4); Lymphocytes Absolute Auto 2.5 X10*3/uL (1.2-4.9); Lymphocytes Percent Auto 28.8 % (20-40); Mean Corpuscular HGB Conc 32.8 g/dl (31.0-35.0); Mean Corpuscular Hemoglobin 30.5 pg (27.0-33.0); Mean Corpuscular Volume 93.1 fL (80.0-98.0); Monocytes Absolute Auto 0.6 X10*3/uL (0.1-1.2); Monocytes Percent Auto 7.1 % (2-11); Neutrophils Absolute Auto 5.4 x10*3/uL (2.0-8.3); Neutrophils Percent Auto 61.7 % (45-73); Platelet Count 414 X10*3/uL (160-400); Red Blood Count 4.06 X10*6/uL (4.20-5.50); Red Cell Distribution Width 12.9 % (11.0-16.0); White Blood Count 8.8 X10*3/uL (4.8-10.8)
[2022-09-14 09:09] LABS: Estimated Average Glucose 137 mg/dL; Hemoglobin A1C 151.1905 umol/L; Hemoglobin A1c % 6.4 %
[2022-09-14 10:01] LABS: Alanine Aminotransferase 17 U/L (0-31); Albumin Level 4.3 g/dL (3.5-5.0); Alkaline Phosphatase 46 U/L (39-117); Anion Gap 12 (12-20); Aspartate Amino Transferase 21 U/L (5-31); Bilirubin Total 0.5 mg/dL (0.0-1.0); Blood Urea Nitrogen 21 mg/dL (9-16); Calcium 9.9 mg/dL (8.4-10.2); Carbon Dioxide 27 mmol/L (22-29); Chloride 105 mmol/L (96-108); Cholesterol 164 mg/dL; Estimated Glomerular Filt Rate 46; Glucose Fasting 100 mg/dL (60-99); HDL Cholesterol 44 mg/dL; LDL Cholesterol Calculated 92 mg/dl; Potassium 4.9 mmol/L (3.3-5.1); Sodium 139 mmol/L (135-145); TSH reflex Free T4 0.67 uIU/mL (0.32-4.0); Total Protein 7.5 g/dL (6.5-8.0); Triglycerides 144 mg/dL; Vitamin D 25-OH Total 63.4 ng/mL (>30)
[2022-09-14 10:19] LABS: Appearance Urine Clear; Color Urine Yellow; Glucose Urine UA Negative (Negative); Leukocyte Esterase Urine Moderate (2+) (Negative); Nitrite Urine Negative (Negative); Specific Gravity - Urine 1.015 (1.005-1.025); UMIC TRIGGER UACC YES; Urine Blood Negative (Negative); Urine Ketones Negative (Negative); Urine Protein Negative (Neg-Trace)
[2022-09-14 10:25] LABS: Bacteria Urine None Seen (None Seen); Hyaline Casts Urine 0-2 /LPF (0-2); RBC Urine 0-2 /HPF (0-2); Squamous Epithelial Cell Urine 0-2 /HPF (0-2); UACC Culture Trigger YES
[2022-09-14 11:25] LABS: Creatinine Urine 73.38 mg/dL; Microalbum/Creatinine Ratio Ur 23.1 ug/mg cr
== END 2022-09-14 08:25 | disposition home or self-care (01) ==
LOC: HO.LAB 08:24
PROVIDERS: PCP Internal Medicine; Visit Provider Internal Medicine
DX: I10 Essential (primary) hypertension (principal); E78.00 Pure hypercholesterolemia, unspecified; E55.9 Vitamin D deficiency, unspecified; E11.9 Type 2 diabetes mellitus without complications
CPT/HCPCS: 36415; 80053; 80061; 81001; 82043; 82306; 83036; 84443; 85025; 87086

== ENCOUNTER 2022-12-06 09:41 | Emergency (ER) | payer OTHER, SELFPAY ==
--- NOTE | ~2022-12-06 | CT_ITS ---
EXAM: Noncontrast CT scan of the head and cervical spine. INDICATION: Fall with pain COMPARISON: Head CT 06/24/2014 TECHNIQUE: Axial slices were obtained from skull base to vertex and displayed. This was followed by helical, multislice, multidetector axial images from the occiput to the upper thorax. Coronal and sagittal reformats of the cervical spine in addition to coronal reformats of the head were obtained at the technologist workstation. DLP: 949 mGy-cm FINDINGS: HEAD: The interhemispheric fissure is hyperdense and thickened consistent with a subdural hematoma. There is also thickening and hyperdensity of the right tentorium consistent with subdural hematoma. There is no evidence of acute territorial infarction. No abnormal mass effect or midline shift is appreciated. Irene-white differentiation is well preserved. Again noted is a large bilobed calcified meningioma along the vertex midline which measures up to 4.2 cm in maximum dimension. The ventricular system and cortical sulci are prominent, consistent with volume loss. Mild cerebellar volume loss is also appreciated. There are areas of low density in the periventricular and subcortical white matter, most consistent with sequelae of microvascular ischemic change. The osseous structures and soft tissues are normal. There is mild to moderate calcifications of the cavernous internal carotid arteries. The visualized paranasal sinuses and mastoid air cells are well aerated. There is mucosal thickening of the visualized maxillary sinuses. SPINE: The cervical spine is visualized in its entirety. Alignment is within normal limits. Normal C1/C2 articulation. Cervical vertebral body heights are maintained. There is mild narrowing of disc spaces throughout the majority of the cervical spine. Small osteophytes and posterior disc osteophyte complexes are present throughout the cervical spine, most predominantly at the C3/C4, C4/C5 and C5/C6 level. Mild bilateral facet hypertrophy diffusely. Visualized lung apices are well aerated. Heterogeneous thyroid gland with suspected underlying thyroid nodules. CT/CT cervical spine wo IV con IMPRESSION: 1. Acute subdural hematoma of the interhemispheric fissure and right tentorium. 2. Large bilobed calcified meningioma along the vertex midline. 3. No fractures or dislocations of the cervical spine. This Critical Result was discussed with Dr. Maurice at 11:38 AM on 12/06/2022 and it was ascertained that the content and urgency of the report was understood at the time of direct communication.
[2022-12-06 09:49] VITALS: BP 152/108; PULSE 100; O2SAT 99
[2022-12-06 10:14] VITALS: BP 172/92; PULSE 96; RESP 18; TEMP 36.2; O2SAT 97; BMI 22.2
--- NOTE | 2022-12-06 11:44 | ED_ITS ---
HPI - Fall General Chief Complaint: Fall Stated Complaint: SLIP/FALL ON ICE W/HEADSTRIKE,-THINNER Time Seen by Provider: 12/06/22 10:07 Source: patient and family Mode of arrival: EMS History of Present Illness HPI Narrative: This is an 82-year-old female, not currently on any anticoagulation who sustained a mechanical fall this morning with head strike but denies any loss of consciousness. Patient states that she does has some pain to the back of the head were she landed. Related Data Home Medications Medication Instructions Recorded Confirmed dorzolamide 22.3 mg-timolol 6.8 ml ophthalmic (eye) BID 10/17/20 09/19/22 mg/mL eye drops blood sugar diagnostic (FreeStyle #10 ea 01/23/21 09/19/22 Lite Strips) Previous Rx's Medication Instructions Recorded Centrum Silver 0.4 mg-300 mcg-250 1 tab PO DAILY 90 days #90 tabs 01/26/21 mcg tablet (brinvgas-dak-AV-lycopen-lutein) blood sugar diagnostic (FreeStyle 1 strip miscellaneous TID #300 04/11/21 Lite Strips) strips guaifenesin 100 mg/5 mL oral liquid 200 mg (10 mL) PO Q6H PRN cough 10 04/14/21 days #200 mL omega-3 fatty acids-fish oil 340 1 cap PO BID #180 caps 04/16/21 mg-1,000 mg capsule (Fish Oil) ascorbate calcium (vitamin C) 500 500 mg PO DAILY 90 days #90 tabs 01/17/22 mg tablet cranberry extract 500 mg capsule 500 mg PO DAILY 90 days #90 caps 01/17/22 (Cranberry Concentrate) fluticasone propionate 110 2 puff PO BID 90 days #3 multiple 01/17/22 mcg/actuation HFA aerosol inhaler units (Flovent HFA) insulin glargine U-300 conc 300 10 unit (0.0333 mL) subcut DAILY 01/26/22 unit/mL (3 mL) subcutaneous pen 90 days #9 mL (Toujeo Max U-300 SoloStar) albuterol sulfate 90 mcg/actuation 2 puff inhalation Q6H PRN 04/23/22 aerosol inhaler shortness of breath or wheezing 90 days #3 inhalers fluticasone propionate 50 1 spray intranasal DAILY #16 grams 04/23/22 mcg/actuation nasal spray,suspension insulin glargine U-300 conc 300 10 unit (0.0333 mL) subcut DAILY 04/23/22 unit/mL (1.5 mL) subcutaneous pen #4.5 mL (Toujeo SoloStar U-300 Insulin) lisinopril 2.5 mg tablet 2.5 mg PO DAILY 90 days #90 tabs 04/23/22 pen needle, diabetic 32 gauge x #100 ea 05/13/22 (BD Shonna 2nd Gen Pen Needle) amlodipine 2.5 mg tablet 2.5 mg PO DAILY 90 days #90 tabs 05/17/22 cyanocobalamin (vitamin B-12) 100 100 mcg PO DAILY #90 tabs 05/27/22 mcg tablet (Vitamin B-12) albuterol sulfate 2.5 mg/3 mL 2.5 mg (3 mL) inhalation QID PRN 07/06/22 (0.083 %) solution for nebulization shortness of breath or wheezing 30 days #180 mL calcium carbonate 600 mg-vitamin 1 tab PO DAILY 90 days #90 tabs 07/12/22 D3 10 mcg (400 unit) tablet omeprazole 20 mg capsule,delayed 20 mg PO DAILY #90 caps 07/24/22 release dulaglutide 1.5 mg/0.5 mL 1.5 mg (0.5 mL) subcut QWEEK 13 08/02/22 subcutaneous pen injector weeks #6.5 mL (Trulicity) latanoprost 0.005 % eye drops 1 drp ophthalmic (eye) BEDTIME 08/27/22 #2.5 mL fluticasone fur. 200 mcg-umeclid 1 inh inhalation DAILY 30 days #60 09/19/22 62.5 mcg-vilant 25 mcg ea inhalat.powder (Trelegy Ellipta) loratadine 10 mg tablet 10 mg PO DAILY PRN allergy 09/19/22 symptoms 90 days #90 tabs doxycycline monohydrate 100 mg 100 mg PO BID 7 days #14 caps 10/25/22 capsule simvastatin 10 mg tablet 10 mg PO BEDTIME 90 days #90 tabs 11/05/22 metformin 500 mg tablet,extended 1,000 mg PO BID #360 tabs 12/06/22 release 24 hr Allergies Allergy/AdvReac Type Severity Reaction Status Date / Time codeine [CODEINE] AdvReac Intermediate DIZZINESS Verified 12/06/22 10:17 Review of Systems Review of Systems: Pertinent positives and negatives as stated in [facility] Past Medical History Source: nursing notes reviewed Medical History Allergic rhinitis Asthma Benign essential hypertension Chronic kidney disease, stage III (moderate) E. coli urinary tract infection GERD (gastroesophageal reflux disease) Glaucoma, left eye Macular degeneration Osteoporosis Pure hypercholesterolemia Type 2 diabetes mellitus with diabetic chronic kidney disease Surgical History No pertinent past surgical history Family History Family History Father Unknown family medical history Mother Hyperten preg NOS-unspec Heart disease Social History Social History Housing: Apartment Alcohol intake: never Patient Tobacco Use Status: Never used Tobacco Second Hand Smoke Exposure: No Advance Directives: Yes Advance Directives Information Provided: No Advance Directives on File: No service: No Current occupational status: retired Cognitive needs: No Hearing needs: No Vision needs: Yes Physical Exam Vital Signs: Vital Signs: Last Vital Signs Temp 97.2 F 12/06/22 10:14 Pulse 96 12/06/22 10:14 Resp 18 12/06/22 10:14 BP 172/92 H 12/06/22 10:14 Pulse Ox 97 12/06/22 10:14 O2 Del Method 12/06/22 10:14 BMI result Body Mass Index 22.2 VITAL SIGNS: Reviewed. GENERAL: Well developed, well nourished, in no acute distress. HEAD: Normocephalic/contusion without laceration noted to right occipital/parietal EYES: PERRLA, EOMI NECK: C-collar in place and no noted midline cervical spine tenderness LUNGS: Normal breath sounds. No adventitious sounds or accessory muscle use. SpO2<97> CARDIOVASCULAR: Regular rate and rhythm without noted murmurs, no JVD or lower extremity edema. ABDOMEN: Soft, non-tender, non-distended with bowel sounds. MUSCULOSKELETAL: No tenderness, deformities, or effusions noted on gross inspe ction. EXTREMITIES: No cyanosis, clubbing or edema. SKIN: Inspection of the skin reveals no rashes, NEUROLOGIC: Alert and oriented x 4. Strength and sensation to light touch were grossly intact x 4, there is no numbness/tingling in any the upper extremities. Medical Decision Making Medical Decision Making [facility] Narrative: 82-year-old female with mechanical fall and no neurologic symptoms. 1138: I received a call from [facility] who states that patient is noted to have a subdural hematoma with blood products located along the falc and right tentorium. C-spine was negative for acute findings and C-collar was cleared. Lab work to include COVID-19 testing initiated. C-collar was cleared. I reviewed all investigations and my interpretation is that the leukocytosis is likely reactive/stress and response. Patient is afebrile and has no other acute complaints. She is hemodynamically stable for transfer to [facility] ED and evaluation by the Trauma Service. Differential Diagnosis Please see the discussion above Consult Healthcare Provider Management of the patient was discussed with: Vending Route Driver [facility] [email or web address]: I spoke with patient placement who will send page out to the trauma team. I spoke to the trauma team who accepts patient in transfer to ED for cons ult. Lab Data Please see the discussion above 12/06/22 11:58 12/06/22 11:59 Labs: Lab Results 12/06/22 12/06/22 12/06/22 Range/Units 11:58 11:58 11:58 WBC 13.7 H (4.8-10.8) X10*3/uL RBC 4.35 (4.20-5.50) X10*6/uL Hgb 13.3 (12.0-16.0) g/dl Hct 39.0 (37.0-47.0) % MCV 89.7 (80.0-98.0) fL MCH 30.6 (27.0-33.0) pg MCHC 34.1 (31.0-35.0) g/dl RDW 13.2 (11.0-16.0) % Plt Count 351 (160-400) X10*3/uL MPV 8.9 L (9.4-12.3) fL Immature Gran % (Auto) 0.7 H (0.0-0.4) % Neut % (Auto) 78.1 H (45-73) % Lymph % (Auto) 13.3 L (20-40) % Todd % (Auto) 6.3 (2-11) % Eos % (Auto) 1.3 (0-4) % Baso % (Auto) 0.3 (0-2) % Lymph # (Auto) 1.8 (1.2-4.9) X10*3/uL Todd # (Auto) 0.9 (0.1-1.2) X10*3/uL Eos # (Auto) 0.2 (0.0-0.4) X10*3/uL Baso # (Auto) 0.0 (0.0-0.2) X10*3/uL Abs Immat Gran (auto) 0.10 H (0.00-0.03) X10*3/uL Absolute Neuts (auto) 10.7 H (2.0-8.3) x10*3/uL Absolute Nucleated RBC 0.000 (0.0-0.012) X10*3/uL Nucleated RBC % (auto) 0.0 (0.0-0.2) /100WBC PT 10.1 (10.0-13.1) SEC INR 0.9 (0.9-1.1) Sodium (135-145) mmol/L Potassium (3.3-5.1) mmol/L Chloride (96-108) mmol/L Carbon Dioxide (22-29) mmol/L Anion Gap (12-20) BUN (9-16) mg/dL Creatinine (0.5-1.4) mg/dL Estim Creat Clear Calc Estimated GFR Random Glucose (60-115) mg/dL Calcium (8.4-10.2) mg/dL Total Bilirubin (0.0-1.0) mg/dL AST (5-31) U/L ALT (0-31) U/L Alkaline Phosphatase (39-117) U/L Total Protein (6.5-8.0) g/dL Albumin (3.5-5.0) g/dL COVID-19 (YESI) Negative (Negative) COVID-19 Clin Com See Note 12/06/22 Range/Units 11:59 WBC (4.8-10.8) X10*3/uL RBC (4.20-5.50) X10*6/uL Hgb (12.0-16.0) g/dl Hct (37.0-47.0) % MCV (80.0-98.0) fL MCH (27.0-33.0) pg MCHC (31.0-35.0) g/dl RDW (11.0-16.0) % Plt Count (160-400) X10*3/uL MPV (9.4-12.3) fL Immature Gran % (Auto) (0.0-0.4) % Neut % (Auto) (45-73) % Lymph % (Auto) (20-40) % Todd % (Auto) (2-11) % Eos % (Auto) (0-4) % Baso % (Auto) (0-2) % Lymph # (Auto) (1.2-4.9) X10*3/uL Todd # (Auto) (0.1-1.2) X10*3/uL Eos # (Auto) (0.0-0.4) X10*3/uL Baso # (Auto) (0.0-0.2) X10*3/uL Abs Immat Gran (auto) (0.00-0.03) X10*3/uL Absolute Neuts (auto) (2.0-8.3) x10*3/uL Absolute Nucleated RBC (0.0-0.012) X10*3/uL Nucleated RBC % (auto) (0.0-0.2) /100WBC PT (10.0-13.1) SEC INR (0.9-1.1) Sodium 139 (135-145) mmol/L Potassium 4.5 (3.3-5.1) mmol/L Chloride 103 (96-108) mmol/L Carbon Dioxide 26 (22-29) mmol/L Anion Gap 15 (12-20) BUN 23 H (9-16) mg/dL Creatinine 1.07 (0.5-1.4) mg/dL Estim Creat Clear Calc 28.1 Estimated GFR 49 Random Glucose 114 (60-115) mg/dL Calcium 9.7 (8.4-10.2) mg/dL Total Bilirubin 0.4 (0.0-1.0) mg/dL AST 26 (5-31) U/L ALT 22 (0-31) U/L Alkaline Phosphatase 51 (39-117) U/L Total Protein 8.4 H (6.5-8.0) g/dL Albumin 4.6 (3.5-5.0) g/dL COVID-19 (YESI) (Negative) COVID-19 Clin Com Radiology Impression Radiologist Impression: My interpretation is in agreement with radiology's impression of the imaging studies. Critical Care Time Critical Care Time Critical Care Time: Yes Total Critical Care Time: 45 Attestation: I personally attest to this time spent taking care of the patient. Discharge Plan Discharge Clinical Impression: Acute subdural hematoma, Fall Patient Disposition: [facility] Transfer Details: Transfer for trauma services and subdural hematoma. Prescriptions: No Action (DME) FreeStyle Lite Strips Strip See Rx Instructions .ROUTE .MEDSUPPLY Qty: 10 Rx Instructions: As directed- In Vitro three times a day. vhtxljir-mqf-NH-lycopen-lutein [Centrum Silver] 0.4-300-250 mg-mcg-mcg tablet 1 tab PO DAILY 90 Days Qty: 90 3RF blood sugar diagnostic [FreeStyle Lite Strips] Strip 1 strip miscellaneous TID Qty: 300 12RF guaifenesin 100 mg/5 mL liquid 200 mg PO Q6H PRN (Reason: cough) 10 Days Qty: 200 1RF omega-3 fatty acids-fish oil [Fish Oil] 340-1,000 mg capsule 1 cap PO BID Qty: 180 0RF Toujeo Max U-300 SoloStar 300 unit/mL (3 mL) insulin pen 10 unit subcut DAILY 90 Days Qty: 9 3RF (DME) pen needle, diabetic [BD Shonna 2nd Gen Pen Needle] 32 gauge x 5/32 needle See Rx Instructions .ROUTE .MEDSUPPLY Qty: 100 12RF Rx Instructions: As directed once a day amlodipine 2.5 mg tablet 2.5 mg PO DAILY 90 Days Qty: 90 0RF cyanocobalamin (vitamin B-12) [Vitamin B-12] 100 mcg tablet 100 mcg PO DAILY Qty: 90 0RF calcium carbonate-vitamin D3 600 mg-10 mcg (400 unit) tablet 1 tab PO DAILY 90 Days Qty: 90 3RF omeprazole 20 mg capsule,delayed release(DR/EC) 20 mg PO DAILY Qty: 90 0RF Trulicity 1.5 mg/0.5 mL pen injector 1.5 mg subcut QWEEK 91 Days Qty: 6.5 3RF latanoprost 0.005 % drops 1 drp ophthalmic (eye) BEDTIME Qty: 2.5 1RF doxycycline monohydrate 100 mg capsule 100 mg PO BID 7 Days Qty: 14 0RF simvastatin 10 mg tablet 10 mg PO BEDTIME 90 Days Qty: 90 3RF metformin 500 mg tablet extended release 24 hr 1,000 mg PO BID Qty: 360 0RF dorzolamide-timolol 22.3-6.8 mg/mL drops ophthalmic (eye) BID albuterol sulfate 2.5 mg /3 mL (0.083 %) solution for nebulization 2.5 mg inhalation QID PRN (Reason: shortness of breath or wheezing) 30 Days Qty: 180 3RF ascorbate calcium (vitamin C) 500 mg tablet 500 mg PO DAILY 90 Days Qty: 90 3RF cranberry extract [Cranberry Concentrate] 500 mg capsule 500 mg PO DAILY 90 Days Qty: 90 3RF Flovent HFA 110 mcg/actuation HFA aerosol inhaler 2 puff PO BID 90 Days Qty: 3 3RF fluticasone propionate 50 mcg/actuation spray,suspension 1 spray intranasal DAILY Qty: 16 5RF Hayley SolZenaar U-300 Insulin 300 unit/mL (1.5 mL) insulin pen 10 unit subcut DAILY Qty: 4.5 3RF lisinopril 2.5 mg tablet 2.5 mg PO DAILY 90 Days Qty: 90 3RF albuterol sulfate 90 mcg/actuation HFA aerosol inhaler 2 puff inhalation Q6H PRN (Reason: shortness of breath or wheezing) 90 Days Qty: 3 3RF loratadine 10 mg tablet 10 mg PO DAILY PRN (Reason: allergy symptoms) 90 Days Qty: 90 3RF Trelegy Ellipta 200-62.5-25 mcg blister with device 1 inh inhalation DAILY 30 Days Qty: 60 5RF
--- NOTE | 2022-12-06 11:51 | MHC.EDTECH ---
@1148AM CALL PLACED TO [facility] PT TX LINE @ REQUEST OF DR ANAMARIA CHRISTENSEN ANSWERS, TAKES PT INFO AND ASKS TO SPEAK WITH DR ANAMARIA CONRAD TAKES OVER CALL RIGHT AWAY
--- NOTE | 2022-12-06 11:55 | MHC.EDTECH ---
@1154AM CALL RECEIVED FROM [facility] OF THE [facility] PT TX LINE ASKING TO SPEAK WITH DR ANAMARIA CONRAD TAKES OVER CALL RIGHT AWAY
--- NOTE | 2022-12-06 11:58 | MHC.EDTECH ---
PER DR CONRAD PT ACCEPTED @ [facility] TRAUMA ED DR GARCIA
[2022-12-06 12:04] LABS: MANUAL DIFF FLAG NO
[2022-12-06 12:06] LABS: Basophils Percent Auto 0.3 % (0-2); Eosinophils Absolute Auto 0.2 X10*3/uL (0.0-0.4); Eosinophils Percent Auto 1.3 % (0-4); Hemoglobin 13.3 g/dl (12.0-16.0); Imm Gran Pct Auto 0.7 % (0.0-0.4); Lymphocytes Absolute Auto 1.8 X10*3/uL (1.2-4.9); Lymphocytes Percent Auto 13.3 % (20-40); Mean Corpuscular HGB Conc 34.1 g/dl (31.0-35.0); Mean Corpuscular Hemoglobin 30.6 pg (27.0-33.0); Mean Corpuscular Volume 89.7 fL (80.0-98.0); Mean Platelet Volume 8.9 fL (9.4-12.3); Monocytes Absolute Auto 0.9 X10*3/uL (0.1-1.2); Monocytes Percent Auto 6.3 % (2-11); Neutrophils Absolute Auto 10.7 x10*3/uL (2.0-8.3); Neutrophils Percent Auto 78.1 % (45-73); Platelet Count 351 X10*3/uL (160-400); Red Blood Count 4.35 X10*6/uL (4.20-5.50); Red Cell Distribution Width 13.2 % (11.0-16.0); White Blood Count 13.7 X10*3/uL (4.8-10.8)
--- NOTE | 2022-12-06 12:17 | MHC.EDTECH ---
EKG machine not available at the time ,when obtained the EKG, patient was getting transfer to another Hospital. was not able to do EKG .Charge Nurse Aware.
[2022-12-06 12:19] LABS: Alanine Aminotransferase 22 U/L (0-31); Albumin Level 4.6 g/dL (3.5-5.0); Alkaline Phosphatase 51 U/L (39-117); Anion Gap 15 (12-20); Aspartate Amino Transferase 26 U/L (5-31); Bilirubin Total 0.4 mg/dL (0.0-1.0); Blood Urea Nitrogen 23 mg/dL (9-16); Calcium 9.7 mg/dL (8.4-10.2); Carbon Dioxide 26 mmol/L (22-29); Chloride 103 mmol/L (96-108); Creatinine Clr Calc Pharmacy 28.1; Estimated Glomerular Filt Rate 49; Glucose Random 114 mg/dL (60-115); Potassium 4.5 mmol/L (3.3-5.1); Sodium 139 mmol/L (135-145); Total Protein 8.4 g/dL (6.5-8.0)
[2022-12-06 12:21] LABS: INTERNATIONAL NORM RATIO 0.9 (0.9-1.1); Prothrombin Time 10.1 SEC (10.0-13.1)
[2022-12-06 12:22] LABS: COVID-19 Test Negative (Negative); IDNOW Serial# 16C4AD1C
--- NOTE | 2022-12-06 12:27 | PC.NURSE ---
nurse to nurse report [place] to [facility] [place] Watson RN
--- NOTE | 2022-12-06 12:38 | MHC.EDTECH ---
CT DISC ARRIVES AND DINA LEAVES WITH THIS PT @ THIS TIME
== END 2022-12-06 12:42 | disposition short-term general hospital (02) ==
PROVIDERS: Emergency Provider Student in an Organized Health Care Education/Training Program; PCP Internal Medicine
DX: S06.5XAA Traumatic subdural hemorrhage with loss of consciousness status unknown, initial encounter (principal); R51.9 Headache, unspecified; M54.2 Cervicalgia; W01.0XXA Fall on same level from slipping, tripping and stumbling without subsequent striking against object, initial encounter; Y93.79 Activity, other specified sports and athletics; Y92.9 Unspecified place or not applicable; Y99.9 Unspecified external cause status; Z20.822 Contact with and (suspected) exposure to COVID-19; Z20.828 Contact with and (suspected) exposure to other viral communicable diseases; Z79.899 Other long term (current) drug therapy
CPT/HCPCS: 36415; 70450; 72125; 80053; 85025; 85610; 87635; 99285

== ENCOUNTER 2022-12-31 08:35 | Outpatient (REF) | payer OTHER, SELFPAY ==
[2022-12-31 08:52] LABS: MANUAL DIFF FLAG NO
[2022-12-31 09:19] LABS: Basophils Percent Auto 0.5 % (0-2); Eosinophils Absolute Auto 0.1 X10*3/uL (0.0-0.4); Eosinophils Percent Auto 1.9 % (0-4); Hematocrit 36.7 % (37.0-47.0); Hemoglobin 12.2 g/dl (12.0-16.0); Imm Gran Abs Auto 0.04 X10*3/uL (0.00-0.03); Imm Gran Pct Auto 0.5 % (0.0-0.4); Lymphocytes Absolute Auto 2.4 X10*3/uL (1.2-4.9); Lymphocytes Percent Auto 32.7 % (20-40); Mean Corpuscular HGB Conc 33.2 g/dl (31.0-35.0); Mean Corpuscular Hemoglobin 30.7 pg (27.0-33.0); Mean Corpuscular Volume 92.2 fL (80.0-98.0); Mean Platelet Volume 9.2 fL (9.4-12.3); Monocytes Absolute Auto 0.6 X10*3/uL (0.1-1.2); Neutrophils Absolute Auto 4.1 x10*3/uL (2.0-8.3); Neutrophils Percent Auto 56.4 % (45-73); Platelet Count 351 X10*3/uL (160-400); Red Blood Count 3.98 X10*6/uL (4.20-5.50); Red Cell Distribution Width 13.2 % (11.0-16.0); White Blood Count 7.3 X10*3/uL (4.8-10.8)
[2022-12-31 09:27] LABS: Estimated Average Glucose 143 mg/dL; Hemoglobin A1c % 6.6 %
[2022-12-31 10:00] LABS: Appearance Urine Clear; Color Urine Yellow; Glucose Urine UA Negative (Negative); Leukocyte Esterase Urine Trace (Negative); Nitrite Urine Negative (Negative); Specific Gravity - Urine 1.015 (1.005-1.025); UMIC TRIGGER UACC YES; Urine Blood Negative (Negative); Urine Ketones Negative (Negative); Urine Protein Negative (Neg-Trace)
[2022-12-31 10:04] LABS: Bacteria Urine None Seen (None Seen); Hyaline Casts Urine 0-2 /LPF (0-2); RBC Urine 0-2 /HPF (0-2); Squamous Epithelial Cell Urine 0-2 /HPF (0-2); WBC Urine 0-5 /HPF (0-5)
[2022-12-31 10:30] LABS: Alanine Aminotransferase 20 U/L (0-31); Albumin Level 4.3 g/dL (3.5-5.0); Alkaline Phosphatase 45 U/L (39-117); Anion Gap 13 (12-20); Aspartate Amino Transferase 22 U/L (5-31); Bilirubin Total 0.5 mg/dL (0.0-1.0); Blood Urea Nitrogen 21 mg/dL (9-16); Calcium 9.9 mg/dL (8.4-10.2); Carbon Dioxide 27 mmol/L (22-29); Chloride 104 mmol/L (96-108); Cholesterol 141 mg/dL; Estimated Glomerular Filt Rate 45; Glucose Fasting 117 mg/dL (60-99); HDL Cholesterol 41 mg/dL; LDL Cholesterol Calculated 74 mg/dl; Potassium 4.4 mmol/L (3.3-5.1); Sodium 140 mmol/L (135-145); Total Protein 7.3 g/dL (6.5-8.0); Triglycerides 131 mg/dL
[2022-12-31 10:36] LABS: Creatinine Urine 71.06 mg/dL; Microalbum/Creatinine Ratio Ur 21.1 ug/mg cr
[2022-12-31 10:49] LABS: TSH reflex Free T4 0.85 uIU/mL (0.32-4.0)
== END 2022-12-31 08:36 | disposition home or self-care (01) ==
LOC: HO.LAB 08:35
PROVIDERS: PCP Internal Medicine; Visit Provider Internal Medicine
DX: I10 Essential (primary) hypertension (principal); E78.00 Pure hypercholesterolemia, unspecified; E11.9 Type 2 diabetes mellitus without complications; E55.9 Vitamin D deficiency, unspecified; R30.0 Dysuria
CPT/HCPCS: 36415; 80053; 80061; 81001; 81003; 82043; 82306; 83036; 84443; 85025

== ENCOUNTER 2023-07-23 07:11 | Outpatient (AMB) | payer OTHER, SELFPAY ==
--- NOTE | 2023-07-23 07:12 | MHC.PC.OV ---
Intake Visit Reasons: on going cough Allergies codeine [CODEINE] Adverse Reaction (Intermediate, Verified 07/23/23 07:18) DIZZINESS Medication List - Last Reconciled 07/23/23 by STARR Guerrero amlodipine 2.5 mg PO DAILY 90 days ascorbate calcium (vitamin C) 500 mg PO DAILY 90 days blood sugar diagnostic (FreeStyle Lite Strips) As directed- In Vitro three times a day. blood sugar diagnostic (FreeStyle Lite Strips) 1 strip miscellaneous TID calcium carbonate-vitamin D3 600 mg-10 mcg (400 unit) 1 tab PO DAILY 90 days Centrum Silver 0.4 mg-300 mcg- 250 mcg (unlkpbqb-oby-GM-lycopen-lutein) 1 tab PO DAILY 90 days NS cranberry extract (Cranberry Concentrate) 500 mg PO DAILY 90 days cyanocobalamin (vitamin B-12) (Vitamin B-12) 100 mcg PO DAILY dorzolamide-timolol 22.3-6.8 mg/mL mL ophthalmic (eye) BID dulaglutide (Trulicity) 1.5 mg (0.5 mL) subcut QWEEK 13 weeks fluticasone propionate 50 mcg/actuation 1 spray intranasal DAILY umkbkmyaklc-tirautbfx-gyxfyiew 200-62.5-25 mcg (Trelegy Ellipta) 1 inh inhalation DAILY 30 days insulin glargine U-300 conc (Toujeo SoloStar U-300 Insulin) 10 units (0.0333 mL) subcut DAILY latanoprost 0.005% 1 drp ophthalmic (eye) BEDTIME lisinopril 2.5 mg PO DAILY 90 days loratadine 10 mg PO DAILY PRN 90 days metformin ER 1,000 mg (2 x 500 mg) PO BID omeprazole 20 mg PO DAILY pen needle, diabetic (BD Shonna 2nd Gen Pen Needle) As directed once a day simvastatin 10 mg PO BEDTIME 90 days Tobacco use date assessed: 01/02/23 Fall risk assessment: No Falls in past year Last assessed Fall Risk: 07/23/23 Dental Screening Dental Screen Date: 07/23/23 Did you have a dental visit in the last 12 months?: Yes Did you have a dental problem in the last 6 months where you did not have access to dental care?: No Was dental information given to patient?: Patient has dentist HPI HPI Comments History of Present Illness Details 83-year-old female past medical history significant for hypertension, type 2 diabetes mellitus, hypercholesteremia, asthma, GERD, CKD stage 3. Patient of Dr. Thompson, presents today via telehealth for ongoing cough. Patient reports on and off cough x1 week. Patient reports primarily dry cough however at time she does produce white/yellow sputum. Patient reports history of seasonal allergies and states she has been using her claritin and OTC cough syrup with good effect. Patient unsure if she has had any recent sick contacts states she attends an adult daycare program. Patient denies any fever, chills, bodyaches and headache, Patient reports sometimes she coughs on and off x 1 week. Dry cough, itchy through. Patient reports she has been requiring using her nebulizer treatments daily in the morning for sob. [facility] Medical History (Updated 07/23/23 @ 07:24 by STARR Guerrero) Calcified cerebral meningioma Subdural hematoma E. coli urinary tract infection Chronic kidney disease, stage III (moderate) Glaucoma, left eye Macular degeneration Allergic rhinitis Osteoporosis GERD (gastroesophageal reflux disease) Asthma Pure hypercholesterolemia Type 2 diabetes mellitus with diabetic chronic kidney disease Benign essential hypertension Surgical History No pertinent past surgical history Family History Father Unknown family medical history Mother Hyperten preg NOS-unspec Heart disease Social History Housing: Apartment Alcohol intake: never Patient Tobacco Use Status: Never used Tobacco e-Cigarette/Vaping Use: Never Used Second Hand Smoke Exposure: No service: No Current occupational status: retired Cognitive needs: No Hearing needs: No Vision needs: Yes Questionnaire PHQ-9 Over the last 2 weeks, how often have you been bothered by any of the following problems? 1. Little interest or pleasure in doing things: not at all 2. Feeling down, depressed, or hopeless: not at all 3. Trouble falling or staying asleep, or sleeping too much: not at all 4. Feeling tired or having little energy: not at all 5. Poor appetite or overeating: not at all 6. Feeling bad about yourself - or that you are a failure or have let yourself or your family down: not at all 7. Trouble concentrating on things, such as reading the newspaper or watching television: not at all 8. Moving or speaking so slowly that other people could have noticed. Or the opposite - being so fidgety or restless that you have been moving around a lot more than usual: not at all 9. Thoughts that you would be better off or of hurting yourself in some way: not at all Total score: 0 Depression Screening Interpretation: Negative Depression Screening Done: Yes 21305 - PHQ-9 Billing: Yes Source: Developed by Drs. Scott Feng, Whitney Villeda, Garett Greenberg and colleagues, with an educational cale from [employer]. Thrive Questionnaire Date Thrive assessed: 01/02/23 AUDIT C Alcohol Use Questionnaire (AUDIT-C) 1. How often do you have a drink containing alcohol?: Never 3. How often do you have six or more drinks on one occasion?: Never Total Score: 0 Score Reviewed/Action Taken: Yes INGA-7 AMB Questionnaire INGA-7 Date INGA - 7 assessed: 01/02/23 Source: Developed by Drs. Scott Feng, Whitney Villeda, Garett Greenberg and colleagues, with an educational cale from [employer]. Review of Systems Const Denies body aches and Denies chills Eyes Reports no additional complaints ENT Reports nasal congestion, Reports nasal discharge, Denies sinus pain, Denies sinus pressure and Denies sore throat Card Reports no additional complaints Resp Reports cough GI Reports no additional complaints Physical exam (Primary Care) Tobacco/Smoking Status: Tobacco use Status Tobacco use date assessed 01/02/23 07/23/23 07:14 Patient Tobacco Use Status Never used Tobacco 07/23/23 07:14 e-Cigarette/Vaping Use Never Used 07/23/23 07:14 PHQ-9: PHQ-9 Score PHQ-9: Total score 0 07/23/23 07:14 Depression Screening Interpretation: Negative Thrive Assessment: Date of Thrive Assessment Date Thrive assessed 01/02/23 07/23/23 07:14 Telehealth Telehealth Location of provider rendering services: practice address Location of patient: address on file Patient Identification confirmed using: Name, : Yes Telehealth method: video (Iphone) Patient verbally consented to treatment: Yes Patient verbally consented to billing insurance company: Yes Patient informed of any privacy concerns related to visit: Yes Minutes spent on Phone/Video with Pt.: 8 Assessment and Plan Assessment & Plan (1) Cough: Code(s): R05.9 - Cough, unspecified Plan: COVID/FLU and RSV swab ordered. acute viral illness vs. allergic rhinitis. Continue use wstn-cwh-yvbwhcf cough syrup as needed. (2) Allergic rhinitis: Code(s): J30.9 - Allergic rhinitis, unspecified Qualifiers: Allergic rhinitis trigger: unspecified Allergic rhinitis seasonality: unspecified Qualified Code(s): J30.9 - Allergic rhinitis, unspecified Plan: Continue on loratadine and fluticasone nasal spray. (3) Asthma: Code(s): J45.909 - Unspecified asthma, uncomplicated Qualifiers: Asthma severity: moderate Asthma persistence: persistent Asthma complication type: uncomplicated Qualified Code(s): J45.40 - Moderate persistent asthma, uncomplicated Plan: Continue nebulizer treatments for shortness of breath wheezing. (4) Benign essential hypertension: Code(s): I10 - Essential (primary) hypertension Plan: Continue on amlodipine Orders: Orders SARS-CoV2/FLU/RSV Today R05.9 - Cough, unspecified Coding Level of Care Code Tele Est Pt Level 3 (01830) Diagnoses Cough R05.9 Allergic rhinitis, unspecified seasonality, unspecified trigger J30.9 Allergic rhinitis trigger: unspecified Allergic rhinitis seasonality: unspecified Moderate persistent asthma without complication J45.40 Asthma severity: moderate Asthma persistence: persistent Asthma complication type: uncomplicated Benign essential hypertension I10
== END 2023-07-23 08:25 | disposition home or self-care (01) ==
LOC: HO.HMGH 07:11
PROVIDERS: PCP Internal Medicine; Visit Provider Nurse Practitioner Family
DX: R05.9 Cough, unspecified (principal); J30.9 Allergic rhinitis, unspecified; J45.40 Moderate persistent asthma, uncomplicated; I10 Essential (primary) hypertension
CPT/HCPCS: 99213

== ENCOUNTER 2023-08-08 08:38 | Outpatient (AMB) | payer OTHER, SELFPAY ==
[2023-08-08 08:42] VITALS: BP 132/86; PULSE 91; O2SAT 98; BMI 22.8
--- NOTE | 2023-08-08 08:42 | A.OFFPC_ITS ---
Vital Signs 08/08/23 08:42 Height 4 ft 11 in Weight 113 lb 0.4 oz BMI 22.8 BP 132/86 Blood Pressure Location Lt brachial Position Sitting Pulse 91 Pulse Source Pulse Oximeter Pulse Oximetry (%) 98 Oxygen Delivery Method Room Air Intake Visit Reasons: ongoing cough Intake Note: pt states on going cough with no relief [id number] Press Leader Required: No Allergies codeine [CODEINE] Adverse Reaction (Intermediate, Verified 08/08/23 08:59) DIZZINESS Medication List - Last Reconciled 08/08/23 by STARR Damon amlodipine 2.5 mg PO DAILY 90 days ascorbate calcium (vitamin C) 500 mg PO DAILY 90 days blood sugar diagnostic (FreeStyle Lite Strips) As directed- In Vitro three times a day. blood sugar diagnostic (FreeStyle Lite Strips) 1 strip miscellaneous TID calcium carbonate-vitamin D3 600 mg-10 mcg (400 unit) 1 tab PO DAILY 90 days Centrum Silver 0.4 mg-300 mcg- 250 mcg (ieskigyh-rox-RL-lycopen-lutein) 1 tab PO DAILY 90 days NS cranberry extract (Cranberry Concentrate) 500 mg PO DAILY 90 days cyanocobalamin (vitamin B-12) (Vitamin B-12) 100 mcg PO DAILY dorzolamide-timolol 22.3-6.8 mg/mL mL ophthalmic (eye) BID dulaglutide (Trulicity) 1.5 mg (0.5 mL) subcut QWEEK 13 weeks fluticasone propionate 50 mcg/actuation 1 spray intranasal DAILY nigjjzvucpq-rttkgphaj-rmufqytw 200-62.5-25 mcg (Trelegy Ellipta) 1 inh inhalation DAILY 30 days insulin glargine U-300 conc (Toujeo SoloStar U-300 Insulin) 10 units (0.0333 mL) subcut DAILY latanoprost 0.005% 1 drp ophthalmic (eye) BEDTIME lisinopril 2.5 mg PO DAILY 90 days loratadine 10 mg PO DAILY PRN 90 days metformin ER 1,000 mg (2 x 500 mg) PO BID omeprazole 20 mg PO DAILY pen needle, diabetic (BD Shonna 2nd Gen Pen Needle) As directed once a day simvastatin 10 mg PO BEDTIME 90 days Tobacco use date assessed: 08/08/23 Fall risk assessment: No Falls in past year Last assessed Fall Risk: 08/08/23 HPI ongoing cough HPI Details Patient is an 83-year-old female presents today with productive cough for the past [address] Thompson. Medical history significant for hypertension, diabetes, asthma, hypercholesterolemia, GERD among others. Patient also reports wheezing. She has been using Mucinex b.i.d. with very minimal improvement, also on Trelegy inhaler daily. No fever or chills. Denies sick contacts. Reports negative COVID test yesterday. No shortness of breath or chest pain. Reports white sputum production with cough. [facility] Medical History Calcified cerebral meningioma Subdural hematoma E. coli urinary tract infection Chronic kidney disease, stage III (moderate) Glaucoma, left eye Macular degeneration Allergic rhinitis Osteoporosis GERD (gastroesophageal reflux disease) Asthma Pure hypercholesterolemia Type 2 diabetes mellitus with diabetic chronic kidney disease Benign essential hypertension Surgical History No pertinent past surgical history Family History Father Unknown family medical history Mother Hyperten preg NOS-unspec Heart disease Social History Housing: Apartment Alcohol intake: never Patient Tobacco Use Status: Never used Tobacco e-Cigarette/Vaping Use: Never Used Second Hand Smoke Exposure: No service: No Current occupational status: retired Cognitive needs: No Hearing needs: No Vision needs: Yes Questionnaire Thrive Questionnaire Date Thrive assessed: 01/02/23 AUDIT C Alcohol Use Questionnaire (AUDIT-C) 1. How often do you have a drink containing alcohol?: Never 3. How often do you have six or more drinks on one occasion?: Never Total Score: 0 Score Reviewed/Action Taken: No INGA-7 AMB Questionnaire INGA-7 Date INGA - 7 assessed: 01/02/23 Source: Developed by Drs. Scott Feng, Whitney Villeda, Garett Greenberg and colleagues, with an educational cale from [employer]. Review of Systems Const Denies body aches, Denies chills, Denies fever(s) and Denies headache(s) ENT Denies dizziness, Denies otalgia, Denies headache(s), Denies nasal discharge, Denies sinus pain and Denies sore throat Card Denies chest pain, Denies edema, Denies lightheadedness and Denies dyspnea Resp Reports cough, Denies dyspnea and Reports wheezing GI Denies abdominal pain Denies dysuria Musc Denies myalgias Skin/Breast Denies rash Neuro Denies dizziness and Denies headache(s) Aller/Immun Reports wheezing Physical exam (Primary Care) Vital Signs: Last Vital Signs Pulse 91 08/08/23 08:42 BP 132/86 08/08/23 08:42 Pulse Ox 98 08/08/23 08:42 Oxygen Delivery Method Room Air 08/08/23 08:42 BMI result Body Mass Index 22.8 Tobacco/Smoking Status: Tobacco use Status Tobacco use date assessed 08/08/23 08/08/23 08:54 Patient Tobacco Use Status Never used Tobacco 08/08/23 08:54 e-Cigarette/Vaping Use Never Used 08/08/23 08:54 Thrive Assessment: Date of Thrive Assessment Date Thrive assessed 01/02/23 08/08/23 08:54 Const General: cooperative and no acute distress Orientation/consciousness: patient oriented x3 HENMT Head: Yes normocephalic and Yes atraumatic Throat: Yes posterior oropharynx normal Eyes General: appearance normal, both eyes and all related structures Neck Neck: Yes normal visual inspection and Yes full ROM Resp Effort & Inspection: normal respiratory effort and able to speak in complete sentences Auscultation: clear to auscultation bilaterally (Bilateral upper), no crackles, no rales, no rhonchi and wheezes (Fine bilateral lower expiratory) Cardio Rate: regular rate Rhythm: regular rhythm Heart sounds: S1 normal heart sound present and S2 normal heart sound present GI Auscultation: normal bowel sounds Skin General skin exam: no rashes or lesions noted Neuro General: patient oriented x3 Gait exam (Neuro): Normal gait present Extrem General: Yes full ROM Assessment and Plan Assessment & Plan (1) Cough: Code(s): R05.9 - Cough, unspecified (2) Asthma: Code(s): J45.909 - Unspecified asthma, uncomplicated Qualifiers: Asthma severity: moderate Asthma persistence: persistent Asthma complication type: uncomplicated Qualified Code(s): J45.40 - Moderate persistent asthma, uncomplicated Plan Patient with productive cough for the past 3 weeks with no improvement. Will treat with doxycycline b.i.d. for 5 days. Start albuterol inhaler p.r.n.. Continue Trulicity. Continue bblw-lux-lwcdojl Mucinex b.i.d. for 7 days. Increase fluid consumption. Notify office if no improvement after finishing treatment. Patient agreed with the plan. Medications: New doxycycline hyclate 100 mg PO BID 10 tabs 0RF J45.909 - Unspecified asthma, uncomplicated, R05.9 - Cough, unspecified albuterol sulfate 90 mcg/actuation (Ventolin HFA) 2 puffs inhalation Q4-6H PRN 8.5 grams 0RF shortness of breath or wheezing J45.909 - Unspecified asthma, uncomplicated Coding Level of Care Code Est Pt Level 3 (78182) Diagnoses Cough R05.9 Moderate persistent asthma without complication J45.40 Asthma severity: moderate Asthma persistence: persistent Asthma complication type: uncomplicated
== END 2023-08-08 09:11 | disposition home or self-care (01) ==
PROVIDERS: PCP Internal Medicine; Visit Provider Nurse Practitioner Family
DX: R05.9 Cough, unspecified (principal); J45.40 Moderate persistent asthma, uncomplicated
CPT/HCPCS: 99213

== ENCOUNTER 2023-09-25 07:36 | Outpatient (AMB) | payer OTHER, SELFPAY ==
[2023-09-25 07:58] VITALS: BP 142/80; BMI 22.4
--- NOTE | 2023-09-25 07:58 | MHC.PC.OV ---
Vital Signs 09/25/23 07:58 Height 4 ft 11 in Weight 111 lb BMI 22.4 BP 142/80 H Blood Pressure Location Lt brachial Position Sitting Intake Visit Reasons: persistent cough for 2 months Intake Note: Patient here c/o persistent cough, colds Manager Health Required: No Accompanied by: Self / Same As Patient Allergies codeine [CODEINE] Adverse Reaction (Intermediate, Verified 09/25/23 08:19) DIZZINESS Medication List - Last Reconciled 09/25/23 by Desire Lauren MD albuterol sulfate 90 mcg/actuation (Ventolin HFA) 2 puffs inhalation Q4-6H PRN amlodipine 2.5 mg PO DAILY 90 days ascorbate calcium (vitamin C) 500 mg PO DAILY 90 days blood sugar diagnostic (FreeStyle Lite Strips) As directed- In Vitro three times a day. blood sugar diagnostic (FreeStyle Lite Strips) 1 strip miscellaneous TID calcium carbonate-vitamin D3 600 mg-10 mcg (400 unit) 1 tab PO DAILY 90 days Centrum Silver 0.4 mg-300 mcg- 250 mcg (xrksnkxw-bpj-PC-lycopen-lutein) 1 tab PO DAILY 90 days NS cranberry extract (Cranberry Concentrate) 500 mg PO DAILY 90 days cyanocobalamin (vitamin B-12) (Vitamin B-12) 100 mcg PO DAILY dorzolamide-timolol 22.3-6.8 mg/mL mL ophthalmic (eye) BID doxycycline hyclate 100 mg PO BID dulaglutide (Trulicity) 1.5 mg (0.5 mL) subcut QWEEK 13 weeks fluticasone propionate 50 mcg/actuation 1 spray intranasal DAILY bebekthbmjj-ssguplrsx-zbsmbool 200-62.5-25 mcg (Trelegy Ellipta) 1 inh inhalation DAILY 30 days insulin glargine U-300 conc (Toujeo SoloStar U-300 Insulin) 10 units (0.0333 mL) subcut DAILY latanoprost 0.005% 1 drp ophthalmic (eye) BEDTIME lisinopril 2.5 mg PO DAILY 90 days loratadine 10 mg PO DAILY PRN 90 days metformin ER 1,000 mg (2 x 500 mg) PO BID omeprazole 20 mg PO DAILY pen needle, diabetic (BD Shonna 2nd Gen Pen Needle) As directed once a day simvastatin 10 mg PO BEDTIME 90 days Tobacco use date assessed: 08/08/23 Fall risk assessment: No Falls in past year Last assessed Fall Risk: 09/25/23 Dental Screening Dental Screen Date: 09/25/23 Did you have a dental visit in the last 12 months?: Yes Did you have a dental problem in the last 6 months where you did not have access to dental care?: No Was dental information given to patient?: Patient has dentist HPI HPI Comments History of Present Illness Details This is an 83-year-old female with diabetes mellitus type 2 on long-term current use of insulin complicated by chronic kidney disease, hypertension, and pure hypercholesterolemia that complains of nasal congestion, productive cough of white sputum and chest congestion that started about 2 months ago. She came here before due to this matter and was prescribed doxycycline with no significant relieved. She said Mucinex helps. She does have some shortness of breath on and off. She use a nasal spray and some pyja-qhn-ximjnth medications like Mucinex which mildly relieved the symptoms. I will order x-ray of sinus and x-ray of chest. Will give her azithromycin. No fever or sore throat. She declines A1c today and last A1c was 6.6%. Blood pressure stable. Last LDL was 74 which is close to goal. [facility] Medical History (Updated 09/25/23 @ 08:50 by Desire Lauren MD) Calcified cerebral meningioma Subdural hematoma E. coli urinary tract infection Chronic kidney disease, stage III (moderate) Glaucoma, left eye Macular degeneration Allergic rhinitis Osteoporosis GERD (gastroesophageal reflux disease) Asthma Pure hypercholesterolemia Type 2 diabetes mellitus with diabetic chronic kidney disease Benign essential hypertension Surgical History No pertinent past surgical history Family History Father Unknown family medical history Mother Hyperten preg NOS-unspec Heart disease Social History Housing: Apartment Alcohol intake: never Patient Tobacco Use Status: Never used Tobacco e-Cigarette/Vaping Use: Never Used Second Hand Smoke Exposure: No service: No Current occupational status: retired Cognitive needs: No Hearing needs: No Vision needs: Yes Questionnaire Thrive Questionnaire Date Thrive assessed: 01/02/23 INGA-7 AMB Questionnaire INGA-7 Date INGA - 7 assessed: 01/02/23 Source: Developed by Drs. Scott Feng, Whitney Villeda, Garett Greenberg and colleagues, with an educational cale from [employer] Review of Systems Const All systems reviewed & are unremarkable except as noted in HPI and below Eyes Reports no additional complaints, Denies change in vision and Denies other visual disturbances Card Denies chest pain at rest, Denies chest pain with activity, Denies edema, Denies irregular heart rhythm, Denies claudication, Reports dyspnea, Denies orthopnea, Denies paroxysmal nocturnal dyspnea and Denies slow heart rate Resp Reports chest congestion, Reports cough, Reports excessive phlegm production, Reports pain with cough and Reports dyspnea GI Denies abdominal pain, Denies change in bowel habits, Denies excessive flatus, Denies nausea and Denies vomiting Denies urinary incontinence, Denies urinary hesitancy and Denies urinary urgency Musc Denies abnormal gait, Denies atrophy, Denies deformity and Denies limited range of motion Skin/Breast Denies bleeding lesions, Denies changing lesions and Denies rash Neuro Denies abnormal gait, Denies behavioral changes and Denies lack of coordination Psych Denies behavioral changes Physical exam (Primary Care) Vital Signs: Last Vital Signs BP 142/80 H 09/25/23 07:58 BMI result Body Mass Index 22.4 Tobacco/Smoking Status: Tobacco use Status Tobacco use date assessed 08/08/23 09/25/23 08:06 Patient Tobacco Use Status Never used Tobacco 09/25/23 08:06 e-Cigarette/Vaping Use Never Used 09/25/23 08:06 Thrive Assessment: Date of Thrive Assessment Date Thrive assessed 01/02/23 09/25/23 08:06 Eyes General: appearance normal, both eyes and all related structures Eyelids: Yes eyelids normal Conjunctivae: conjunctivae normal Neck Neck: Yes normal visual inspection and Yes supple Resp Effort & Inspection: normal respiratory effort Auscultation: rhonchi throughout Cardio Jugular venous distension: no JVD Rate: regular rate Rhythm: regular rhythm Heart sounds: S1 normal heart sound present and S2 normal heart sound present Extrem General: Yes full ROM Office Procedures Flu Questionnaire Does the patient have a severe egg allergy?: No Does the patient have severe life threatening allergies?: No Does the patient have a fever or illness today?: No Has the patient ever had Guillain-[place] Syndrome?: No Has the patient ever had any past reaction to a flu shot?: No Immunizations flu vacc [id number] 6mos up(PF) 60 mcg(15 mcgx4)/0.5 mL IM syringe Performing Provider: Desire Lauren MD [facility] Administered by: Tye Jordan on 09/25/23 08:33 Dose Route Admin Location Dispensed Lot Number Expiration Date [employer] 0.5 mL IM Left Deltoid 0.5 mL [id number] 04/05/24 73063-870-06 [employer] VIS Given Date VIS Provided VIS Publication Date 09/25/23 Single Vaccine 21 Eligibility Eligibility Date Funding Source Not [facility] Eligible 09/25/23 Private Assessment and Plan Assessment & Plan (1) Cough: Code(s): R05.9 - Cough, unspecified Qualifiers: Cough type: chronic Qualified Code(s): R05.3 - Chronic cough Plan: X-ray ordered. Start azithromycin. (2) Type 2 diabetes mellitus with diabetic chronic kidney disease: Code(s): E11.22 - Type 2 diabetes mellitus with diabetic chronic kidney disease Qualifiers: Diabetes mellitus senior living insulin use: with husbandry technician use Chronic kidney disease stage: stage 2 (mild) Qualified Code(s): E11.22 - Type 2 diabetes mellitus with diabetic chronic kidney disease; N18.2 - Chronic kidney disease, stage 2 (mild); Z79.4 - custodial (current) use of insulin Plan: Continue Trulicity and insulin. A1c goal is equal or less than 7%. (3) Benign essential hypertension: Code(s): I10 - Essential (primary) hypertension Plan: Continue lisinopril. Blood pressure goal is equal or less than 130/80. (4) Pure hypercholesterolemia: Code(s): E78.00 - Pure hypercholesterolemia, unspecified Plan: Continue statins. LDL goal is less than 70. Orders: Orders Influenza [id number] Immunization Today Z23 - Encounter for immunization XR sinus saul view Today J32.9 - Chronic sinusitis, unspecified XR chest 2V Today R05.9 - Cough, unspecified Medications: New azithromycin Take 2 tablets the first day, then 1 tablet the next 4 days 250 mg PO DAILY 5 days 6 tabs 0RF benzonatate 100 mg PO BID 10 days PRN 20 caps 0RF cough Coding Level of Care Code Est Pt Level 4 (11843) Diagnoses Chronic cough R05.3 Cough type: chronic Type 2 diabetes mellitus with stage 2 chronic kidney disease, with long-term current use of insulin E11.22; N18.2; Z79.4 Diabetes mellitus husbandry technician insulin use: with husbandry technician use Chronic kidney disease stage: stage 2 (mild) Benign essential hypertension I10 Pure hypercholesterolemia E78.00 Time Spent (min) 23
== END 2023-09-25 08:36 | disposition home or self-care (01) ==
PROVIDERS: PCP Internal Medicine; Visit Provider Internal Medicine
DX: R05.3 Chronic cough (principal); E11.22 Type 2 diabetes mellitus with diabetic chronic kidney disease; N18.2 Chronic kidney disease, stage 2 (mild); Z79.4 Long term (current) use of insulin; I12.9 Hypertensive chronic kidney disease with stage 1 through stage 4 chronic kidney disease, or unspecified chronic kidney disease; E78.00 Pure hypercholesterolemia, unspecified; Z23 Encounter for immunization
CPT/HCPCS: 90471; 90686; 99214

== ENCOUNTER 2023-09-26 10:03 | Outpatient (REF) | payer OTHER, SELFPAY ==
--- NOTE | ~2023-09-26 | XR_ITS ---
EXAMINATION: XR CHEST CLINICAL INFORMATION: Cough COMPARISON: None available. TECHNIQUE: 2 views of the chest were obtained. FINDINGS: Heart and mediastinum within normal limits. Aortic calcifications seen. No vascular congestion. Increased markings bilateral bases. No consolidations or effusions. Bony structures are intact. XR/XR chest 2V IMPRESSION: Mild bibasilar atelectasis.
== END 2023-09-26 10:04 | disposition home or self-care (01) ==
LOC: HO.XRAY 10:03
PROVIDERS: PCP Internal Medicine; Visit Provider Internal Medicine
DX: J32.9 Chronic sinusitis, unspecified (principal); R05.9 Cough, unspecified
CPT/HCPCS: 71046

== ENCOUNTER 2023-11-08 07:57 | Outpatient (REF) | payer OTHER, SELFPAY ==
[2023-11-08 08:15] LABS: MANUAL DIFF FLAG NO
[2023-11-08 08:59] LABS: Basophils Absolute Auto 0.1 X10*3/uL (0.0-0.2); Basophils Percent Auto 0.8 % (0-2); Eosinophils Absolute Auto 0.6 X10*3/uL (0.0-0.4); Eosinophils Percent Auto 6.4 % (0-4); Hematocrit 37.7 % (37.0-47.0); Hemoglobin 12.6 g/dl (12.0-16.0); Imm Gran Abs Auto 0.05 X10*3/uL (0.00-0.03); Imm Gran Pct Auto 0.6 % (0.0-0.4); Lymphocytes Absolute Auto 2.5 X10*3/uL (1.2-4.9); Mean Corpuscular HGB Conc 33.4 g/dl (31.0-35.0); Mean Corpuscular Hemoglobin 30.5 pg (27.0-33.0); Mean Corpuscular Volume 91.3 fL (80.0-98.0); Mean Platelet Volume 9.5 fL (9.4-12.3); Monocytes Absolute Auto 0.6 X10*3/uL (0.1-1.2); Neutrophils Absolute Auto 4.8 x10*3/uL (2.0-8.3); Neutrophils Percent Auto 56.2 % (45-73); Platelet Count 382 X10*3/uL (160-400); Red Blood Count 4.13 X10*6/uL (4.20-5.50); Red Cell Distribution Width 13.1 % (11.0-16.0); White Blood Count 8.6 X10*3/uL (4.8-10.8)
[2023-11-08 09:07] LABS: Appearance Urine Clear; Color Urine Yellow; Glucose Urine UA Negative (Negative); Leukocyte Esterase Urine Negative (Negative); Nitrite Urine Negative (Negative); PH 5.5 (5.0-9.0); Urine Blood Negative (Negative); Urine Ketones Negative (Negative); Urine Protein Negative (Neg-Trace)
[2023-11-08 09:36] LABS: Estimated Average Glucose 143 mg/dL; Hemoglobin A1c % 6.6 % (<6.0)
[2023-11-08 09:44] LABS: Creatinine Urine 41.26 mg/dL; Microalbum/Creatinine Ratio Ur 33.9 ug/mg cr (<30)
[2023-11-08 09:52] LABS: Alanine Aminotransferase 15 U/L (0-31); Albumin Level 4.3 g/dL (3.5-5.0); Alkaline Phosphatase 45 U/L (39-117); Anion Gap 14 (12-20); Aspartate Amino Transferase 21 U/L (5-31); Bilirubin Total 0.4 mg/dL (0.0-1.0); Blood Urea Nitrogen 19 mg/dL (9-16); Calcium 9.9 mg/dL (8.4-10.2); Carbon Dioxide 23 mmol/L (22-29); Chloride 106 mmol/L (96-108); Cholesterol 141 mg/dL (<200); Estimated Glomerular Filt Rate 47; Glucose Fasting 98 mg/dL (60-99); HDL Cholesterol 38 mg/dL (>40); LDL Cholesterol Calculated 76 mg/dL (<100); Potassium 4.3 mmol/L (3.3-5.1); Sodium 139 mmol/L (135-145); Triglycerides 135 mg/dL (<150)
[2023-11-08 10:09] LABS: TSH reflex Free T4 0.82 uIU/mL (0.32-4.0); Vitamin D 25-OH Total 70.6 ng/mL (>30)
== END 2023-11-08 07:58 | disposition home or self-care (01) ==
LOC: HO.LAB 07:57
PROVIDERS: PCP Internal Medicine; Visit Provider Internal Medicine
DX: I10 Essential (primary) hypertension (principal)
CPT/HCPCS: 36415; 80053; 80061; 81003; 82043; 82306; 82570; 83036; 84443; 85025

== ENCOUNTER 2023-11-11 08:26 | Outpatient (AMB) | payer OTHER, SELFPAY ==
[2023-11-11 08:39] VITALS: BP 132/80; PULSE 81; O2SAT 98; BMI 22.9
--- NOTE | 2023-11-11 08:39 | A.OFFPC_ITS ---
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 blood sugar diagnostic (FreeStyle Lite Strips) 1 strip miscellaneous TID blood-glucose meter (FreeStyle Lite Meter kit) check sugar once per day calcium carbonate-vitamin D3 600 mg-10 mcg (400 unit) 1 tab PO DAILY 90 days Centrum Silver 0.4 mg-300 mcg- 250 mcg (pipsmjpu-fdq-BX-lycopen-lutein) 1 tab PO DAILY 90 days NS cranberry extract (Cranberry Concentrate) 500 mg PO DAILY 90 days cyanocobalamin (vitamin B-12) (Vitamin B-12) 100 mcg PO DAILY dorzolamide-timolol 22.3-6.8 mg/mL mL ophthalmic (eye) BID dulaglutide (Trulicity) 1.5 mg (0.5 mL) subcut QWEEK 13 weeks fluticasone propionate 50 mcg/actuation 1 spray intranasal DAILY pgxuomzfwca-xhbekytpa-szojebbk 200-62.5-25 mcg (Trelegy Ellipta) 1 inh inhalation DAILY 30 days insulin glargine U-300 conc (Toujeo SoloStar U-300 Insulin) 10 units (0.0333 mL) subcut DAILY latanoprost 0.005% 1 drp ophthalmic (eye) BEDTIME lisinopril 2.5 mg PO DAILY 90 days loratadine 10 mg PO DAILY PRN 90 days metformin ER 1,000 mg (2 x 500 mg) PO BID omeprazole 20 mg PO DAILY pen needle, diabetic (BD Shonna 2nd Gen Pen Needle) As directed once a day semaglutide (Ozempic) 0.5 mg (0.736 mL) subcut QWEEK 4 weeks simvastatin 10 mg PO BEDTIME 90 days Tobacco use date assessed: 11/11/23 Fall risk assessment: No Falls in past year Last assessed Fall Risk: 11/11/23 Dental Screening Dental Screen Date: 11/11/23 Did you have a dental visit in the last 12 months?: Yes Did you have a dental problem in the last 6 months where you did not have access to dental care?: No Was dental information given to patient?: Patient has dentist HPI Annual PE HPI Details Patient comes in today for her annual physical examination States that she feels okay She denies any headaches or dizziness; denies any fever or sore throat Denies any chest pains; states that she is still experiencing on and off cough and congestion and some chest tightness at times States that she came down with a bad cough back in September 2023 that aggravated her asthma and thinks that she still has not yet completely recovered from it No nausea/vomiting, no abdominal pain No change in bowel habits noted Denies any acute urinary symptoms Had her follow up labs done a few days ago - to discuss her results Had her screening mammogram last done a couple of years ago on 11/17/2021 but at her age, she no longer has to keep up with her yearly mammogram and pap smear/front end java developer exam Had her colonoscopy last done by Dr. Hoyos back on 09/10/2014 - colonoscopy was normal and was advised that her age at the time when a repeat colonoscopy is due (2023), it is optional [facility] Medical History (Updated 11/11/23 @ 10:15 by Todd Thompson MD) Calcified cerebral meningioma Subdural hematoma E. coli urinary tract infection Chronic kidney disease, stage III (moderate) Glaucoma, left eye Macular degeneration Allergic rhinitis Osteoporosis GERD (gastroesophageal reflux disease) Asthma Pure hypercholesterolemia Type 2 diabetes mellitus with diabetic chronic kidney disease Benign essential hypertension Surgical History (Updated 11/11/23 @ 09:46 by Todd Thompson MD) Hx of colonoscopy Family History Father Unknown family medical history Mother Hyperten preg NOS-unspec Heart disease Social History Housing: Apartment Alcohol intake: never Patient Tobacco Use Status: Never used Tobacco e-Cigarette/Vaping Use: Never Used Second Hand Smoke Exposure: No service: No Current occupational status: retired Cognitive needs: No Hearing needs: No Vision needs: Yes Questionnaire PHQ-9 Over the last 2 weeks, how often have you been bothered by any of the following problems? 1. Little interest or pleasure in doing things: not at all 2. Feeling down, depressed, or hopeless: not at all 3. Trouble falling or staying asleep, or sleeping too much: not at all 4. Feeling tired or having little energy: not at all 5. Poor appetite or overeating: not at all 6. Feeling bad about yourself - or that you are a failure or have let yourself or your family down: not at all 7. Trouble concentrating on things, such as reading the newspaper or watching television: not at all 8. Moving or speaking so slowly that other people could have noticed. Or the opposite - being so fidgety or restless that you have been moving around a lot more than usual: not at all 9. Thoughts that you would be better off or of hurting yourself in some way: not at all Total score: 0 Depression Screening Interpretation: Negative Depression Screening Done: Yes 10509 - PHQ-9 Billing: Yes Source: Developed by Drs. Scott Feng, Whitney Villeda, Garett Greenberg and colleagues, with an educational cale from [employer]. Thrive Questionnaire Date Thrive assessed: 11/11/23 I am a: Patient What is your living situation today?: I have a steady place to live Within the past 12 months, did the food you bought not last and you didn't have the money to get more?: Never true Within the past 12 months, did you worry whether your food would run out before you got money to buy more?: Never true Do you have trouble paying for medicines?: No Do you have trouble getting transportation to medical appointments?: No Do you have trouble paying your heating and electricity bill?: No Do you have trouble taking care of your child, family member or friend?: No Do you have trouble with day-to-day activities such as bathing, preparing meals, shopping, managing finances, etc.?: No Are you currently unemployed and looking for a job?: No Are you interested in more education?: No Please select the resources that you would like help with: None Currently or been in a relationship where the following occur: no concerns reported THRIVE Score: 0 AUDIT C Alcohol Use Questionnaire (AUDIT-C) 1. How often do you have a drink containing alcohol?: Never 3. How often do you have six or more drinks on one occasion?: Never Total Score: 0 Score Reviewed/Action Taken: Yes INGA-7 AMB Questionnaire INGA-7 Date INGA - 7 assessed: 11/11/23 Feeling nervous, anxious, or on edge: 0 = Not at all Not being able to stop or control worryin = Not at all Worrying too much about different things: 0 = Not at all Trouble relaxin = Not at all Being so restless that it is hard to sit still: 0 = Not at all Becoming easily annoyed or irritable: 0 = Not at all Feeling afraid as if something awful might happen: 0 = Not at all Total INGA-7 score (0-4 normal; 5-9 mild; 10-14 moderate; 15-21 severe): 0 Source: Developed by Drs. Scott Feng, Whitney Villeda, Garett Greenberg and colleagues, with an educational cale from [employer]. Review of Systems Const Denies chills, Denies fatigue, Denies fever(s), Denies headache(s) and Denies malaise Eyes Denies blurry vision, Denies change in vision, Denies irritation and Denies itchy eyes ENT Denies dysphagia, Denies dizziness, Denies otalgia, Denies headache(s), Denies nasal congestion, Denies neck pain, Denies odynophagia, Denies sinus pain and Denies sore throat Card Denies chest pain, Denies rapid heart rate, Denies irregular heart rhythm, Denies palpitations and Reports dyspnea on exertion (mild) Resp Reports chest congestion (chest feels tight at times), Reports cough (on and off, coughs up whitish phlegm at times), Denies hemoptysis, Reports dyspnea on exertion (mild) and Denies wheezing GI Denies abdominal pain, Denies bloating, Denies constipation, Denies dysphagia, Denies heartburn, Denies diarrhea, Denies nausea, Denies odynophagia and Denies vomiting Denies hematuria, Denies urinary frequency, Denies dysuria, Denies urinary incontinence and Denies urinary urgency Musc Denies back pain, Denies arthralgias, Denies joint swelling, Denies muscle weakness and Denies neck pain Skin/Breast Denies breast pain, Denies breast mass, Denies change in pigmentation, Denies lesions, Denies rash and Denies unusual bruising Neuro Denies dizziness, Denies headache(s) and Denies paresthesias Psych Denies anxiety and Denies depression Endo Denies fatigue and Denies palpitations Bennie/Lymph Denies easy bruising Aller/Immun Denies itchy eyes and Denies wheezing Physical exam (Primary Care) Vital Signs: Last Vital Signs Pulse 81 11/11/23 08:39 BP 132/80 11/11/23 08:39 Pulse Ox 98 11/11/23 08:39 Oxygen Delivery Method Room Air 11/11/23 08:39 BMI result Body Mass Index 22.9 Tobacco/Smoking Status: Tobacco use Status Tobacco use date assessed 11/11/23 11/11/23 08:44 Patient Tobacco Use Status Never used Tobacco 11/11/23 08:44 e-Cigarette/Vaping Use Never Used 11/11/23 08:44 PHQ-9: PHQ-9 Score PHQ-9: Total score 0 11/11/23 08:44 Depression Screening Interpretation: Negative Thrive Assessment: Date of Thrive Assessment Date Thrive assessed 11/11/23 11/11/23 08:44 Currently or been in a relationship where the following occur: no concerns reported Const General: no acute distress, alert and awake Orientation/consciousness: patient oriented x3 HENMT Head: Yes normocephalic and Yes atraumatic Ears: external ears normal, TM's normal bilaterally and EAC's normal General nose exam: No nasal discharge present Face and sinus: Yes normal facial exam and Yes sinuses nontender Teeth and gingiva: dentition normal Throat: Yes posterior oropharynx normal and Yes tonsils normal (no TP con gestion) Eyes Eyelids: Yes eyelids normal Conjunctivae: conjunctivae normal Pupils: Equal, round and reactive pupils present EOM: EOMs intact bilaterally Neck Neck: Yes no lymphadenopathy and Yes supple Thyroid: Thyroid normal Resp Auscultation: no rales, rhonchi (scattered ) throughout, wheezes (occasional) expiratory wheezes and diminished lung sounds (slightly) bilateral Cardio Rate: regular rate Rhythm: regular rhythm Heart sounds: no murmurs GI Palpation (GI): Soft to palpation, nontender and No hepatosplenomegaly present Auscultation: normal bowel sounds General: Yes no CVA tenderness Back/Spine/Pelvis Back: no CVA tenderness Thoracic/Lumbar Spine: thoracic and lumbar spine normal to inspection Skin Lesions: no lesions Rashes: no rashes Neuro General: patient oriented x3, moves all extremities, no focal motor deficits and CN's II-XI intact bilaterally Cranial nerves: Yes Equal, round and reactive pupils present Cognition (Neuro): normal cognition Gait exam (Neuro): Normal gait present Extrem General: Yes no clubbing, cyanosis or edema Results Reviewed Results Reviewed: Laboratory Tests 11/08/23 11/08/23 11/08/23 08:14 08:14 08:14 WBC 8.6 Hgb 12.6 Hct 37.7 Plt Count 382 Sodium 139 Potassium 4.3 Creatinine 1.11 Estimated GFR 47 Fasting Glucose 98 Hemoglobin A1c % 6.6 H Calcium 9.9 AST 21 ALT 15 Triglycerides 135 Cholesterol 141 LDL Cholesterol, Calc 76 HDL Cholesterol 38 L 25-OH Vitamin D Total 70.6 TSH 0.82 Ur Specific [place] Urine Protein Urine Glucose (UA) Urine Blood Microalb/Creat Ratio 11/08/23 11/08/23 11/08/23 08:15 08:15 08:15 WBC Hgb Hct Plt Count Sodium Potassium Creatinine Estimated GFR Fasting Glucose Hemoglobin A1c % Calcium AST ALT Triglycerides Cholesterol LDL Cholesterol, Calc HDL Cholesterol 25-OH Vitamin D Total TSH Ur Specific [place] 1.010 Urine Protein Negative Urine Glucose (UA) Negative Urine Blood Negative Microalb/Creat Ratio 33.9 H Assessment and Plan Assessment & Plan (1) Annual physical exam: Code(s): Z00.00 - Encounter for general adult medical examination without abnormal findings Plan: Results of her labs done a few days ago reviewed and discussed with patient She is up-to-date with her colon and breast cancer screenings and at her age currently, she no longer has to keep up with them unless she wants to - patient has expressed that she prefers not to continue doing them at this time She also no longer has to keep up with her annual gynecology exam and pap smear (2) Asthma exacerbation: Code(s): J45.901 - Unspecified asthma with (acute) exacerbation Qualifiers: Asthma severity: moderate Asthma persistence: persistent Qualified Code(s): J45.41 - Moderate persistent asthma with (acute) exacerbation Plan: She appears to still be experiencing recurrent asthma exacerbations that seem to have started from a respiratory tract infection from back in September 2023 Will start patient empirically on Doxycycline 100 mg BID x 7 days and oral Prednisone taper Continue Trelegy Ellipta 200-62.5-25 mcg 1 inhalation QD and Ventolin HFA 1 to 2 inhalations Q 6 hours PRN (3) Type 2 diabetes mellitus with diabetic chronic kidney disease: Code(s): E11.22 - Type 2 diabetes mellitus with diabetic chronic kidney disease Qualifiers: Diabetes mellitus intermediate accountant insulin use: with intermediate accountant use Chronic kidney disease stage: stage 2 (mild) Qualified Code(s): E11.22 - Type 2 diabetes mellitus with diabetic chronic kidney disease; N18.2 - Chronic kidney disease, stage 2 (mild); Z79.4 - senior living (current) use of insulin Plan: HgbA1c remains at 6.6% on her labs done a few days ago (was also at 6.6% previously) - goal is <7.0% Reinforced diabetic diet She is advised that her blood sugar may go up slightly over the next week or so while she is on her oral Prednisone taper Continue Metformin ER 500 mg 2 tabs BID and Toujeo Solostar 10 units SQ QD; she was also on Trulicity 1.5 mg SQ once a week but has not taken this in a couple of weeks now due to its unavailablity at the pharmacy An alternative Rx for Ozempic 0.5 mg SQ once a week was sent in for her last Saturday and patient states that she will pick this up today and start on it She is advised that we will switch her back to Trulicity once it is again available at her pharmacy (4) Chronic kidney disease, stage III (moderate): Code(s): N18.30 - Chronic kidney disease, stage 3 unspecified Qualifiers: Chronic kidney disease stage 3 subtype: stage 3b (GFR 30-44) Qualified Code(s): N18.32 - Chronic kidney disease, stage 3b Plan: Stable - will continue to monitor her GFR and renal function regularly (5) Pure hypercholesterolemia: Code(s): E78.00 - Pure hypercholesterolemia, unspecified Plan: She is advised that her cholesterol levels on her recent labs remain at goal Reinforced low cholesterol diet Continue Simvastatin 10 mg QD and Fish Oil capsules BID Will recheck her labs and fasting lipids in 4 months for follow up (6) Benign essential hypertension: Code(s): I10 - Essential (primary) hypertension Plan: Reinforced low sodium diet - goal is systolic BP of at least 130 to 140 mm or less Continue Lisinopril 2.5 mg QD and Amlodipine 2.5 mg QD (7) GERD (gastroesophageal reflux disease): Code(s): K21.9 - Gastro-esophageal reflux disease without esophagitis Qualifiers: Esophagitis presence: without esophagitis Qualified Code(s): K21.9 - Gastro-esophageal reflux disease without esophagitis Plan: Dietary restrictions reinforced (8) Allergic rhinitis: Code(s): J30.9 - Allergic rhinitis, unspecified Qualifiers: Allergic rhinitis trigger: unspecified Allergic rhinitis seasonality: unspecified Qualified Code(s): J30.9 - Allergic rhinitis, unspecified Plan: Continue Loratadine 10 mg QD PRN and Fluticasone nasal spray QD PRN (9) Osteoporosis: Code(s): M81.0 - Age-related osteoporosis without current pathological fracture Qualifiers: Osteoporosis type: age-related Presence of current pathological fracture: without current pathological fracture Qualified Code(s): M81.0 - Age-related osteoporosis without current pathological fracture Plan: Repeat BMD done on 11/19/2018 showed (+) osteoporosis with no significant change in her BMD from previous (2015) - will repeat BMD for follow up Continue oral Calcium and Vitamin D supplements daily Is S/P Alendronate Tx for more than 5 years; Rx was discontinued a couple of years ago (10) Calcified cerebral meningioma: Code(s): D32.0 - Benign neoplasm of cerebral meninges Plan: Head CT done on 12/06/2022 incidentally revealed a large bilobed calcified meningioma along the vertex line Per neurosurgery, as she has no acute neurologic symptoms, no further follow up or intervention for this is needed (11) Macular degeneration: Code(s): H35.30 - Unspecified macular degeneration Qualifiers: Macular degeneration type: unspecified type Eye laterality: left Qualified Code(s): H35.30 - Unspecified macular degeneration Plan: Follow up with ophthalmology and retina specialist as scheduled States that she gets some injections into her eyes when indicated (12) Glaucoma, left eye: Code(s): H40.9 - Unspecified glaucoma Qualifiers: Glaucoma type: unspecified Qualified Code(s): H40.9 - Unspecified glaucoma Plan: Continue Latanoprost 0.005% and Dorzolamide 2% eye drops into the left eye Follow up with ophthalmology as scheduled Plan Follow up in 4 months Orders: Orders Lipid Panel 4 Months E78.00 - Pure hypercholesterolemia, unspecified Vitamin B12 and Folate 4 Months E53.8 - Deficiency of other specified B group vitamins XR DEXA axial skeleton Today M81.0 - Age-related osteoporosis without current pathological fracture, Z78.0 - Asymptomatic menopausal state Hemoglobin A1c 4 Months E11.9 - Type 2 diabetes mellitus without complications Complete Blood Count Auto Diff 4 Months D64.9 - Anemia, unspecified Comprehensive [place]. Panel Fast 4 Months E78.00 - Pure hypercholesterolemia, unspecified TSH reflex Free T4 4 Months E78.00 - Pure hypercholesterolemia, unspecified Microalbumin, Random (w Creat) 4 Months E11.9 - Type 2 diabetes mellitus without complications UA CC w/rflx Micro + Cult 4 Months R30.0 - Dysuria Vitamin D 25-OH Total 4 Months E55.9 - Vitamin D deficiency, unspecified Medications: New doxycycline monohydrate 100 mg PO BID 14 caps 0RF 7 days prednisone 4 tablets x 2 days, then 3 tablets x 2 days, then 2 tablets x 2 days, then 1 tablet x 2 days 20 tabs 0RF 8 days J45.901 - Unspecified asthma with (acute) exacerbation, M25.50 - Pain in unspecified joint Coding Level of Care Code Est Pt Prev Care >65y(22549) Diagnoses Annual physical exam Z00.00 Moderate persistent asthma with exacerbation J45.41 Asthma severity: moderate Asthma persistence: persistent Type 2 diabetes mellitus with stage 2 chronic kidney disease, with long-term cur rent use of insulin E11.22; N18.2; Z79.4 Diabetes mellitus intermediate accountant insulin use: with intermediate accountant use Chronic kidney disease stage: stage 2 (mild) Stage 3b chronic kidney disease N18.32 Chronic kidney disease stage 3 subtype: stage 3b (GFR 30-44) Pure hypercholesterolemia E78.00 Benign essential hypertension I10 Gastroesophageal reflux disease without esophagitis K21.9 Esophagitis presence: without esophagitis Allergic rhinitis, unspecified seasonality, unspecified trigger J30.9 Allergic rhinitis trigger: unspecified Allergic rhinitis seasonality: unspecified Age-related osteoporosis without current pathological fracture M81.0 Osteoporosis type: age-related Presence of current pathological fracture: without current pathological fracture Calcified cerebral meningioma D32.0 Macular degeneration of left eye, unspecified type H35.30 Macular degeneration type: unspecified type Eye laterality: left Glaucoma of left eye, unspecified glaucoma type H40.9 Glaucoma type: unspecified
== END 2023-11-11 10:15 | disposition home or self-care (01) ==
PROVIDERS: PCP Internal Medicine; Visit Provider Internal Medicine
DX: Z00.00 Encounter for general adult medical examination without abnormal findings (principal); E11.22 Type 2 diabetes mellitus with diabetic chronic kidney disease; Z79.4 Long term (current) use of insulin; N18.32 Chronic kidney disease, stage 3b; D32.0 Benign neoplasm of cerebral meninges; J45.41 Moderate persistent asthma with (acute) exacerbation; N18.2 Chronic kidney disease, stage 2 (mild); E78.00 Pure hypercholesterolemia, unspecified; I12.9 Hypertensive chronic kidney disease with stage 1 through stage 4 chronic kidney disease, or unspecified chronic kidney disease; K21.9 Gastro-esophageal reflux disease without esophagitis; J30.9 Allergic rhinitis, unspecified; M81.0 Age-related osteoporosis without current pathological fracture
CPT/HCPCS: 99397

== ENCOUNTER 2023-12-06 08:29 | Outpatient (REF) | payer OTHER, SELFPAY ==
--- NOTE | ~2023-12-06 | MM_ITS ---
EXAMINATION: BONE DENSITOMETRY CLINICAL INDICATION: Age-related osteoporosis without current pathological fracture. COMPARISON: Previous BD dated 11/19/2018 and baseline BD dated 06/14/2016. TECHNIQUE: Using a [email or web address] DXA System (software version: 13.1) manufactured by [employer], dual-energy x-ray absorptiometry was performed of the lumbar spine and left hip. The images are of good technical quality. Summary results are attached. FINDINGS: LEFT FEMUR, NECK: Current: BMD 0.759 g/cm2, Z-score 0.6, T-score -2.0, osteopenia. Prior: BMD 0.726 g/cm2. Baseline: BMD 0.741 g/cm2. LEFT FEMUR, TOTAL: Current: BMD 0.889 g/cm2, Z-score 1.6, T-score -0.9, normal, 0.5% increase from previous, 2.8% increase from baseline (<5% change is not significant). Prior: BMD 0.885 g/cm2. Baseline: BMD 0.865 g/cm2. AP SPINE L1-L3 (excluding L4): The data of L1-L4 has been changed to exclude the L4 vertebral body, because degenerative sclerosis at this level may cause overestimation of lumbar spine density. Current: BMD 0.820 g/cm2, Z-score -0.5, T-score -2.9, osteoporosis, 0.1% decrease from previous, 9.2% increase from baseline (<5% change is not significant). Prior: BMD 0.821 g/cm2. Baseline: BMD 0.751 g/cm2. IDENTIFIED RISK FACTORS: Menopause, hysterectomy, left oophorectomy, height loss, osteoporosis, kidney disease. HISTORY OF FRACTURE: None listed. MEDICATIONS: Calcium supplements or multivitamin, vitamin D. MM/XR DEXA axial skeleton IMPRESSION: 1. DIAGNOSIS: Osteoporosis based on the lowest T-score value of -2.9 in the lumbar spine applying World Health Organization criteria. 2. 10-YEAR FRACTURE RISK PREDICTION, FRAX: According to the guidelines, FRAX calculation should only be performed on patients in the osteopenia bone density category. Therefore, FRAX was not performed on this patient. 3. Treatment Recommendations: NOF guidelines recommend consideration for treatment in postmenopausal women and men age 50 and older presenting with the following: -A hip or vertebral (clinical or morphometric) fracture. -T-score less than or equal to -2.5 at the femoral neck or spine after appropriate evaluation to exclude secondary causes. -Low bone mass at the hip or spine and a 10-year fracture probability by FRAX of greater than or equal to 3% for hip fracture or greater than or equal to 20% for major osteoporotic fracture based on the [place] adapted WHO algorithm. 4. Other Recommendations: All treatment decisions require clinical judgment and consideration of individual patient factors, including patient preferences, comorbidities, previous drug use, risk factors not captured in the FRAX model (e.g. frailty, falls, vitamin D deficiency, increased bone turnover, interval significant decline in bone density) and possible under or overestimation of fracture risk by FRAX. Additional medical evaluation for secondary cause of low bone mineral density may be appropriate. FUTURE SCAN RECOMMENDATION: People with diagnosed cases of osteoporosis or at high risk for fracture should have regular bone mineral density tests. For patients eligible for Medicare, routine testing is allowed once every 2 years. The testing frequency can be increased to one year for patients who have rapidly progressing disease, those who are receiving or discontinuing medical therapy to restore bone mass, or have additional risk factors.
== END 2023-12-06 08:30 | disposition home or self-care (01) ==
LOC: HO.MAMMO 08:29
PROVIDERS: PCP Internal Medicine; Visit Provider Internal Medicine
DX: M81.0 Age-related osteoporosis without current pathological fracture (principal); Z78.0 Asymptomatic menopausal state
CPT/HCPCS: 77080

== ENCOUNTER 2024-03-26 08:31 | Outpatient (REF) | payer OTHER, SELFPAY ==
[2024-03-26 08:40] LABS: MANUAL DIFF FLAG NO
[2024-03-26 09:16] LABS: Basophils Absolute Auto 0.1 X10*3/uL (0.0-0.2); Basophils Percent Auto 0.8 % (0-2); Eosinophils Absolute Auto 0.8 X10*3/uL (0.0-0.4); Eosinophils Percent Auto 8.7 % (0-4); Hematocrit 37.4 % (37.0-47.0); Hemoglobin 12.8 g/dl (12.0-16.0); Imm Gran Abs Auto 0.07 X10*3/uL (0.00-0.03); Imm Gran Pct Auto 0.8 % (0.0-0.4); Lymphocytes Absolute Auto 2.6 X10*3/uL (1.2-4.9); Lymphocytes Percent Auto 29.6 % (20-40); Mean Corpuscular HGB Conc 34.2 g/dl (31.0-35.0); Mean Corpuscular Hemoglobin 31.1 pg (27.0-33.0); Mean Platelet Volume 9.3 fL (9.4-12.3); Monocytes Absolute Auto 0.7 X10*3/uL (0.1-1.2); Neutrophils Absolute Auto 4.6 x10*3/uL (2.0-8.3); Neutrophils Percent Auto 52.1 % (45-73); Platelet Count 338 X10*3/uL (160-400); Red Blood Count 4.11 X10*6/uL (4.20-5.50); Red Cell Distribution Width 13.2 % (11.0-16.0); White Blood Count 8.8 X10*3/uL (4.8-10.8)
[2024-03-26 09:25] LABS: Estimated Average Glucose 166 mg/dL; Hemoglobin A1c % 7.4 % (<6.0)
[2024-03-26 09:46] LABS: Creatinine Urine 55.17 mg/dL
[2024-03-26 09:54] LABS: Alanine Aminotransferase 19 U/L (0-31); Albumin Level 4.2 g/dL (3.5-5.0); Alkaline Phosphatase 44 U/L (39-117); Anion Gap 15 (12-20); Aspartate Amino Transferase 21 U/L (5-31); Bilirubin Total 0.4 mg/dL (0.0-1.0); Blood Urea Nitrogen 22 mg/dL (9-16); Carbon Dioxide 25 mmol/L (22-29); Chloride 106 mmol/L (96-108); Cholesterol 154 mg/dL (<200); Estimated Glomerular Filt Rate 37; Glucose Fasting 159 mg/dL (60-99); HDL Cholesterol 45 mg/dL (>40); LDL Cholesterol Calculated 87 mg/dL (<100); Sodium 141 mmol/L (135-145); Total Protein 7.6 g/dL (6.5-8.0); Triglycerides 114 mg/dL (<150)
[2024-03-26 10:13] LABS: TSH reflex Free T4 0.78 uIU/mL (0.32-4.0); Vitamin D 25-OH Total 56.4 ng/mL (>30)
[2024-03-26 10:25] LABS: Appearance Urine Clear; Color Urine Yellow; Glucose Urine UA Negative (Negative); Leukocyte Esterase Urine Negative (Negative); Nitrite Urine Negative (Negative); PH 5.5 (5.0-9.0); Specific Gravity - Urine 1.015 (1.005-1.025); Urine Blood Negative (Negative); Urine Ketones Negative (Negative); Urine Protein Negative (Neg-Trace)
[2024-03-26 11:03] LABS: Folate 19.9 ng/mL (> or = 4.0); Vitamin B12 600 pg/mL (200-900)
== END 2024-03-26 08:32 | disposition home or self-care (01) ==
LOC: HO.LAB 08:31
PROVIDERS: PCP Internal Medicine; Visit Provider Internal Medicine
DX: R30.0 Dysuria (principal); E55.9 Vitamin D deficiency, unspecified; E53.8 Deficiency of other specified B group vitamins; E78.00 Pure hypercholesterolemia, unspecified; E11.9 Type 2 diabetes mellitus without complications; D64.9 Anemia, unspecified
CPT/HCPCS: 36415; 80053; 80061; 81003; 82043; 82306; 82570; 82607; 82746; 83036; 84443; 85025

== ENCOUNTER 2024-03-27 08:19 | Outpatient (AMB) | payer OTHER, SELFPAY ==
[2024-03-27 08:28] VITALS: BP 130/70; PULSE 87; O2SAT 97; BMI 22.6
--- NOTE | 2024-03-27 08:28 | MHC.PC.OV ---
Vital Signs 03/27/24 08:28 Height 4 ft 11 in Weight 112 lb BMI 22.6 BP 130/70 Blood Pressure Location Lt brachial Position Sitting Pulse 87 Pulse Source Pulse Oximeter Pulse Oximetry (%) 97 Oxygen Delivery Method Room Air Intake Visit Reasons: 4 month f/u Allergies codeine [CODEINE] Adverse Reaction (Intermediate, Verified 03/27/24 09:48) DIZZINESS Medication List - Last Reconciled 03/27/24 by Todd Thompson MD albuterol sulfate 90 mcg/actuation (Ventolin HFA) 2 puffs inhalation Q4-6H PRN amlodipine 2.5 mg PO DAILY 90 days ascorbate calcium (vitamin C) 500 mg PO DAILY 90 days blood sugar diagnostic (FreeStyle Lite Strips) As directed- In Vitro three times a day. blood sugar diagnostic (FreeStyle Lite Strips) 1 strip miscellaneous TID blood-glucose meter (FreeStyle Lite Meter kit) check sugar once per day calcium carbonate-vitamin D3 600 mg-10 mcg (400 unit) 1 tab PO DAILY 90 days Centrum Silver 0.4 mg-300 mcg- 250 mcg (qjhsxogj-ljk-VS-lycopen-lutein) 1 tab PO DAILY 90 days NS cranberry extract (Cranberry Concentrate) 500 mg PO DAILY 90 days cyanocobalamin (vitamin B-12) (Vitamin B-12) 100 mcg PO DAILY dorzolamide-timolol 22.3-6.8 mg/mL mL ophthalmic (eye) BID fluticasone propionate 50 mcg/actuation 1 spray intranasal DAILY [id number]-[id number]-ivbghfbj 200-62.5-25 mcg (Trelegy Ellipta) 1 inh inhalation DAILY 30 days insulin glargine U-300 conc (Toujeo SoloStar U-300 Insulin) 10 units (0.0333 mL) subcut DAILY latanoprost 0.005% 1 drp ophthalmic (eye) BEDTIME lisinopril 2.5 mg PO DAILY 90 days loratadine 10 mg PO DAILY PRN 90 days metformin ER 1,000 mg (2 x 500 mg) PO BID omeprazole 20 mg PO DAILY pen needle, diabetic (BD Shonna 2nd Gen Pen Needle) As directed once a day semaglutide (Ozempic) 0.5 mg (0.736 mL) subcut QWEEK 4 weeks simvastatin 10 mg PO BEDTIME 90 days Tobacco use date assessed: 03/27/24 Fall risk assessment: No Falls in past year Last assessed Fall Risk: 03/27/24 Dental Screening Dental Screen Date: 03/27/24 Did you have a dental visit in the last 12 months?: Yes Did you have a dental problem in the last 6 months where you did not have access to dental care?: No Was dental information given to patient?: Patient has dentist HPI 4 month f/u HPI Details Patient comes in today for her follow up visit States that she feels okay She denies any headaches or dizziness Denies any chest pains, no increased SOB - states that her asthma has been well-controlled on Trelegy and she has not even been using her Trelegy regularly / daily lately No nausea/vomiting, no abdominal pain No change in bowel habits noted Needs her glucometer test strips Rx refilled Had her follow up labs done yesterday - to discuss her results [facility] Medical History Calcified cerebral meningioma Subdural hematoma E. coli urinary tract infection Chronic kidney disease, stage III (moderate) Glaucoma, left eye Macular degeneration Allergic rhinitis Osteoporosis GERD (gastroesophageal reflux disease) Asthma Pure hypercholesterolemia Type 2 diabetes mellitus with diabetic chronic kidney disease Benign essential hypertension Surgical History Hx of colonoscopy Family History Father Unknown family medical history Mother Hyperten preg NOS-unspec Heart disease Social History Housing: Apartment Alcohol intake: never Patient Tobacco Use Status: Never used Tobacco e-Cigarette/Vaping Use: Never Used Second Hand Smoke Exposure: No service: No Current occupational status: retired Cognitive needs: No Hearing needs: No Vision needs: Yes Questionnaire PHQ-9 Over the last 2 weeks, how often have you been bothered by any of the following problems? 1. Little interest or pleasure in doing things: not at all 2. Feeling down, depressed, or hopeless: not at all 3. Trouble falling or staying asleep, or sleeping too much: not at all 4. Feeling tired or having little energy: not at all 5. Poor appetite or overeating: not at all 6. Feeling bad about yourself - or that you are a failure or have let yourself or your family down: not at all 7. Trouble concentrating on things, such as reading the newspaper or watching television: not at all 8. Moving or speaking so slowly that other people could have noticed. Or the opposite - being so fidgety or restless that you have been moving around a lot more than usual: not at all 9. Thoughts that you would be better off or of hurting yourself in some way: not at all Total score: 0 Depression Screening Interpretation: Negative Depression Screening Done: Yes 30320 - PHQ-9 Billing: Yes Source: Developed by Drs. Scott Feng, Whitney Villeda, Garett Greenberg and colleagues, with an educational cale from [employer]. Thrive Questionnaire Date Thrive assessed: 11/11/23 AUDIT C Alcohol Use Questionnaire (AUDIT-C) 1. How often do you have a drink containing alcohol?: Never 3. How often do you have six or more drinks on one occasion?: Never Total Score: 0 Score Reviewed/Action Taken: Yes INGA-7 AMB Questionnaire INGA-7 Date INGA - 7 assessed: 11/11/23 Source: Developed by Drs. Scott Feng, Whitney Villeda, Garett Greenberg and colleagues, with an educational cale from [employer]. Review of Systems Const Denies chills, Denies fatigue, Denies fever(s) and Denies headache(s) ENT Denies dysphagia, Denies dizziness, Denies otalgia, Denies headache(s), Denies neck pain, Denies odynophagia and Denies sore throat Card Denies chest pain, Denies irregular heart rhythm, Denies palpitations and Denies dyspnea Resp Denies cough, Denies hemoptysis, Denies dyspnea and Denies wheezing GI Denies abdominal pain, Denies constipation, Denies dysphagia, Denies heartburn, Denies diarrhea, Denies nausea, Denies odynophagia and Denies vomiting Denies urinary frequency, Denies dysuria and Denies urinary incontinence Musc Denies back pain, Denies arthralgias and Denies neck pain Skin/Breast Denies rash Neuro Denies dizziness, Denies headache(s) and Denies paresthesias Psych Denies anxiety and Denies depression Endo Denies fatigue and Denies palpitations Bennie/Lymph Denies easy bruising Aller/Immun Denies wheezing Physical exam (Primary Care) Vital Signs: Last Vital Signs Pulse 87 03/27/24 08:28 BP 130/70 03/27/24 08:28 Pulse Ox 97 03/27/24 08:28 Oxygen Delivery Method Room Air 03/27/24 08:28 BMI result Body Mass Index 22.6 Tobacco/Smoking Status: Tobacco use Status Tobacco use date assessed 03/27/24 03/27/24 08:38 Patient Tobacco Use Status Never used Tobacco 03/27/24 08:38 e-Cigarette/Vaping Use Never Used 03/27/24 08:38 PHQ-9: PHQ-9 Score PHQ-9: Total score 0 03/27/24 08:38 Depression Screening Interpretation: Negative Thrive Assessment: Date of Thrive Assessment Date Thrive assessed 11/11/23 03/27/24 08:38 Const General: no acute distress and alert HENMT Ears: TM's normal bilaterally and EAC's normal Throat: Yes posterior oropharynx normal and Yes tonsils normal (no TP congestion) Neck Neck: Yes no lymphadenopathy and Yes supple Thyroid: Thyroid normal Resp Auscultation: clear to auscultation bilaterally, no rales and no wheezes Cardio Rate: regular rate Rhythm: regular rhythm Heart sounds: no murmurs GI Palpation (GI): Soft to palpation and nontender Auscultation: normal bowel sounds General: Yes no CVA tenderness Back/Spine/Pelvis Back: no CVA tenderness Thoracic/Lumbar Spine: No lumbar spinal tenderness Skin Rashes: no rashes Extrem General: Yes no clubbing, cyanosis or edema Results Reviewed Results Reviewed: Laboratory Tests 03/26/24 03/26/24 08:39 08:40 WBC 8.8 Hgb 12.8 Hct 37.4 Plt Count 338 Sodium 141 Potassium 5.0 Creatinine 1.36 Estimated GFR 37 Fasting Glucose 159 H Hemoglobin A1c % 7.4 H Calcium 10.0 AST 21 ALT 19 Triglycerides 114 Cholesterol 154 LDL Cholesterol, Calc 87 HDL Cholesterol 45 Vitamin B12 600 25-OH Vitamin D Total 56.4 TSH 0.78 Ur Specific Ona 1.015 Urine Protein Negative Urine Glucose (UA) Negative Urine Blood Negative Urine Nitrite Negative Ur Leukocyte Esterase Negative Microalb/Creat Ratio 38.0 H Assessment and Plan Assessment & Plan (1) Type 2 diabetes mellitus with diabetic chronic kidney disease: Code(s): E11.22 - Type 2 diabetes mellitus with diabetic chronic kidney disease Qualifiers: Diabetes mellitus termite control service representative insulin use: with care home use Chronic kidney disease stage: stage 2 (mild) Qualified Code(s): E11.22 - Type 2 diabetes mellitus with diabetic chronic kidney disease; N18.2 - Chronic kidney disease, stage 2 (mild); Z79.4 - FPC (current) use of insulin Plan: Her HgbA1c increased to 7.4% on her labs done yesterday (was at 6.6% a few months ago) - goal is <7.0% Reinforced diabetic diet - patient admits to some poor dietary compliance lately and she also has been eating a lot of grapes these past few weeks although she tried to get the green variety when possible Continue Metformin ER 500 mg 2 tabs BID and Toujeo Solostar 10 units SQ QD She was also on Trulicity 1.5 mg SQ once a week previously but has not taken this in a while due to its unavailablity at the pharmacy She was recently switched over to Ozempic 0.5 mg SQ once a week and states that she's had no problems with this so far Will recheck her FBS and HgbA1c in 4 months for follow up Freestyle Lite test strips Rx refilled today, per request (2) Chronic kidney disease, stage III (moderate): Code(s): N18.30 - Chronic kidney disease, stage 3 unspecified Qualifiers: Chronic kidney disease stage 3 subtype: stage 3b (GFR 30-44) Qualified Code(s): N18.32 - Chronic kidney disease, stage 3b Plan: Stable - will continue to monitor her GFR and renal function regularly (3) Pure hypercholesterolemia: Code(s): E78.00 - Pure hypercholesterolemia, unspecified Plan: Results of her labs done yesterday reviewed and discussed with patient - she is advised that her LDL cholesterol has also gone up slightly from previous Reinforced low cholesterol diet Continue Simvastatin 10 mg QD and Fish Oil capsules BID Will recheck her labs and fasting lipids in 4 months for follow up (4) Benign essential hypertension: Code(s): I10 - Essential (primary) hypertension Plan: Reinforced low sodium diet - goal is systolic BP of at least 130 to 140 mm or less Continue Lisinopril 2.5 mg QD and Amlodipine 2.5 mg QD (5) GERD (gastroesophageal reflux disease): Code(s): K21.9 - Gastro-esophageal reflux disease without esophagitis Qualifiers: Esophagitis presence: without esophagitis Qualified Code(s): K21.9 - Gastro-esophageal reflux disease without esophagitis Plan: Dietary restrictions reinforced (6) Asthma: Code(s): J45.909 - Unspecified asthma, uncomplicated Qualifiers: Asthma severity: moderate Asthma persistence: persistent Asthma complication type: uncomplicated Qualified Code(s): J45.40 - Moderate persistent asthma, uncomplicated Plan: Stable lately; states that she has not needed to use any of her inhalers lately, including her rescue inhaler Continue Trelegy Ellipta 200-62.5-25 mcg 1 inhalation QD and Albuterol HFA 1 to 2 inhalations Q 6 hours PRN Patient admits that she does not use her Trelegy inhaler everyday and only as needed - is advised that ideally, Trelegy Ellipta should be her controller and she should use this regularly everyday and her Albuterol inhaler only when needed Follow up with pulmonary as scheduled (7) Allergic rhinitis: Code(s): J30.9 - Allergic rhinitis, unspecified Qualifiers: Allergic rhinitis trigger: unspecified Allergic rhinitis seasonality: unspecified Qualified Code(s): J30.9 - Allergic rhinitis, unspecified Plan: Continue Loratadine 10 mg QD PRN and Fluticasone nasal spray QD PRN (8) Osteoporosis: Code(s): M81.0 - Age-related osteoporosis without current pathological fracture Qualifiers: Osteoporosis type: age-related Presence of current pathological fracture: without current pathological fracture Qualified Code(s): M81.0 - Age-related osteoporosis without current pathological fracture Plan: Repeat BMD done most recently on 12/06/2023 showed no significant change in her overall BMD from her previous scan on 11/19/2018 - the lowest T-score is at -2.9 in the lumbar spine Continue oral Calcium and Vitamin D supplements daily She completed Tx with Alendronate for more than 5 years and Rx was discontinued a couple of years ago Fall precautions reinforced Will continue to monitor her BMD regularly (9) Calcified cerebral meningioma: Code(s): D32.0 - Benign neoplasm of cerebral meninges Plan: Head CT done on 12/06/2022 incidentally revealed a large bilobed calcified meningioma along the vertex line Per neurosurgery, as she has no acute neurologic symptoms, no further follow up or intervention for this is needed (10) Macular degeneration: Code(s): H35.30 - Unspecified macular degeneration Qualifiers: Macular degeneration type: unspecified type Eye laterality: left Qualified Code(s): H35.30 - Unspecified macular degeneration Plan: Follow up with ophthalmology and retina specialist as scheduled States that she gets some injections into her eyes when indicated (11) Glaucoma, left eye: Code(s): H40.9 - Unspecified glaucoma Qualifiers: Glaucoma type: unspecified Qualified Code(s): H40.9 - Unspecified glaucoma Plan: Continue Latanoprost 0.005% and Dorzolamide 2% eye drops into the left eye Follow up with ophthalmology as scheduled Plan Follow up in 4 months Orders: Orders TSH reflex Free T4 4 Months E78.00 - Pure hypercholesterolemia, unspecified Complete Blood Count Auto Diff 4 Months D64.9 - Anemia, unspecified Comprehensive [place]. Panel Fast 4 Months E78.00 - Pure hypercholesterolemia, unspecified Lipid Panel 4 Months E78.00 - Pure hypercholesterolemia, unspecified Hemoglobin A1c 4 Months E11.9 - Type 2 diabetes mellitus without complications UA CC w/rflx Micro + Cult 4 Months R30.0 - Dysuria Microalbumin, Random (w Creat) 4 Months E11.9 - Type 2 diabetes mellitus without complications Vitamin D 25-OH Total 4 Months E55.9 - Vitamin D deficiency, unspecified Vitamin B12 and Folate 4 Months E53.8 - Deficiency of other specified B group vitamins Medications: Refilled blood sugar diagnostic (FreeStyle Lite Strips) 1 strip miscellaneous TID 300 strips 12RF E11.22 - Type 2 diabetes mellitus with diabetic chronic kidney disease, N18.2 - Chronic kidney disease, stage 2 (mild), Z79.4 - FPC (current) use of insulin Coding Level of Care Code Est Pt Level 4 (79630) Complex EM visit Add On G2211 Diagnoses Type 2 diabetes mellitus with stage 2 chronic kidney disease, with long-term current use of insulin E11.22; N18.2; Z79.4 Diabetes mellitus termite control service representative insulin use: with care home use Chronic kidney disease stage: stage 2 (mild) Stage 3b chronic kidney disease N18.32 Chronic kidney disease stage 3 subtype: stage 3b (GFR 30-44) Pure hypercholesterolemia E78.00 Benign essential hypertension I10 Gastroesophageal reflux disease without esophagitis K21.9 Esophagitis presence: without esophagitis Moderate persistent asthma without complication J45.40 Asthma severity: moderate Asthma persistence: persistent Asthma complication type: uncomplicated Allergic rhinitis, unspecified seasonality, unspecified trigger J30.9 Allergic rhinitis trigger: unspecified Allergic rhinitis seasonality: unspecified Age-related osteoporosis without current pathological fracture M81.0 Osteoporosis type: age-related Presence of current pathological fracture: without current pathological fracture Calcified cerebral meningioma D32.0 Macular degeneration of left eye, unspecified type H35.30 Macular degeneration type: unspecified type Eye laterality: left Glaucoma of left eye, unspecified glaucoma type H40.9 Glaucoma type: unspecified
== END 2024-03-27 10:02 | disposition home or self-care (01) ==
PROVIDERS: PCP Internal Medicine; Visit Provider Internal Medicine
DX: I12.9 Hypertensive chronic kidney disease with stage 1 through stage 4 chronic kidney disease, or unspecified chronic kidney disease (principal); E11.22 Type 2 diabetes mellitus with diabetic chronic kidney disease; Z79.4 Long term (current) use of insulin; N18.32 Chronic kidney disease, stage 3b; D32.0 Benign neoplasm of cerebral meninges; E78.00 Pure hypercholesterolemia, unspecified; K21.9 Gastro-esophageal reflux disease without esophagitis; J45.40 Moderate persistent asthma, uncomplicated; J30.9 Allergic rhinitis, unspecified; M81.0 Age-related osteoporosis without current pathological fracture; H35.30 Unspecified macular degeneration
CPT/HCPCS: 99214; G2211

== ENCOUNTER 2024-07-23 07:24 | Outpatient (REF) | payer OTHER, SELFPAY ==
[2024-07-23 07:34] LABS: MANUAL DIFF FLAG NO
[2024-07-23 08:01] LABS: Basophils Absolute Auto 0.1 X10*3/uL (0.0-0.2); Basophils Percent Auto 0.6 % (0-2); Eosinophils Absolute Auto 0.4 X10*3/uL (0.0-0.4); Eosinophils Percent Auto 5.3 % (0-4); Hematocrit 38.9 % (37.0-47.0); Hemoglobin 12.9 g/dl (12.0-16.0); Imm Gran Abs Auto 0.04 X10*3/uL (0.00-0.03); Imm Gran Pct Auto 0.5 % (0.0-0.4); Lymphocytes Absolute Auto 2.3 X10*3/uL (1.2-4.9); Lymphocytes Percent Auto 28.8 % (20-40); Mean Corpuscular HGB Conc 33.2 g/dl (31.0-35.0); Mean Corpuscular Hemoglobin 30.7 pg (27.0-33.0); Mean Corpuscular Volume 92.6 fL (80.0-98.0); Mean Platelet Volume 10.6 fL (9.4-12.3); Monocytes Absolute Auto 0.6 X10*3/uL (0.1-1.2); Monocytes Percent Auto 7.5 % (2-11); Neutrophils Absolute Auto 4.6 x10*3/uL (2.0-8.3); Neutrophils Percent Auto 57.3 % (45-73); Platelet Count 272 X10*3/uL (160-400); Red Cell Distribution Width 13.1 % (11.0-16.0); White Blood Count 8.1 X10*3/uL (4.8-10.8)
[2024-07-23 08:09] LABS: Estimated Average Glucose 151 mg/dL; Hemoglobin A1C 173.6859 umol/L; Hemoglobin A1c % 6.9 % (<6.0); Total Hemoglobin (HGBA1C) 3316.5437 umol/L
[2024-07-23 08:10] LABS: Appearance Urine Clear; Color Urine Yellow; Glucose Urine UA Negative (Negative); Leukocyte Esterase Urine Trace (Negative); Nitrite Urine Negative (Negative); PH 6.5 (5.0-9.0); Specific Gravity - Urine 1.015 (1.005-1.025); UMIC TRIGGER UACC YES; Urine Blood Negative (Negative); Urine Ketones Negative (Negative); Urine Protein Negative (Neg-Trace)
[2024-07-23 08:15] LABS: Bacteria Urine None Seen (None Seen); Hyaline Casts Urine 0-2 /LPF (0-2); RBC Urine 0-2 /HPF (0-2); Squamous Epithelial Cell Urine 0-2 /HPF (0-2); WBC Urine 0-5 /HPF (0-5)
[2024-07-23 08:49] LABS: Alanine Aminotransferase 15 U/L (0-31); Albumin Level 4.6 g/dL (3.5-5.0); Alkaline Phosphatase 47 U/L (39-117); Anion Gap 13 (12-20); Aspartate Amino Transferase 21 U/L (5-31); Bilirubin Total 0.4 mg/dL (0.0-1.0); Blood Urea Nitrogen 18 mg/dL (9-16); Calcium 10.3 mg/dL (8.4-10.2); Carbon Dioxide 26 mmol/L (22-29); Chloride 106 mmol/L (96-108); Cholesterol 145 mg/dL (<200); Estimated Glomerular Filt Rate 45; Glucose Fasting 126 mg/dL (60-99); HDL Cholesterol 44 mg/dL (>40); LDL Cholesterol Calculated 76 mg/dL (<100); Potassium 4.4 mmol/L (3.3-5.1); Sodium 141 mmol/L (135-145); Total Protein 8.2 g/dL (6.5-8.0); Triglycerides 127 mg/dL (<150)
[2024-07-23 09:08] LABS: TSH reflex Free T4 0.95 uIU/mL (0.32-4.0); Vitamin D 25-OH Total 79.2 ng/mL (>30)
[2024-07-23 09:16] LABS: Creatinine Urine 64.96 mg/dL; Microalbum/Creatinine Ratio Ur 33.8 ug/mg cr (<30)
[2024-07-23 09:21] LABS: Folate 15.5 ng/mL (> or = 4.0); Vitamin B12 605 pg/mL (200-900)
== END 2024-07-23 07:25 | disposition home or self-care (01) ==
LOC: HO.LAB 07:24
PROVIDERS: PCP Internal Medicine; Visit Provider Internal Medicine
DX: D64.9 Anemia, unspecified (principal); E53.8 Deficiency of other specified B group vitamins; E55.9 Vitamin D deficiency, unspecified; E11.9 Type 2 diabetes mellitus without complications; E78.00 Pure hypercholesterolemia, unspecified
CPT/HCPCS: 36415; 80053; 80061; 81001; 82043; 82306; 82570; 82607; 82746; 83036; 84443; 85025

== ENCOUNTER 2024-07-27 08:08 | Outpatient (AMB) | payer OTHER, SELFPAY ==
[2024-07-27 08:37] VITALS: BP 110/84; PULSE 84; O2SAT 98; BMI 21.6
--- NOTE | 2024-07-27 08:37 | MHC.PC.OV ---
Vital Signs 07/27/24 08:37 Height 4 ft 11 in Weight 107 lb 2 oz BMI 21.6 BP 110/84 Blood Pressure Location Lt brachial Position Sitting Pulse 84 Pulse Source Pulse Oximeter Pulse Oximetry (%) 98 Oxygen Delivery Method Room Air Intake Visit Reasons: DM, HTN, hyperlipidemia, asthma Head Athletic Trainer Required: No Accompanied by: Self / Same As Patient Allergies codeine [CODEINE] Adverse Reaction (Intermediate, Verified 07/27/24 09:53) DIZZINESS Medication List - Last Reconciled 07/27/24 by Todd Thompson MD albuterol sulfate 90 mcg/actuation (Ventolin HFA) 2 puffs inhalation Q4-6H PRN amlodipine 2.5 mg PO DAILY 90 days ascorbate calcium (vitamin C) 500 mg PO DAILY 90 days blood sugar diagnostic (FreeStyle Lite Strips) As directed- In Vitro three times a day. blood sugar diagnostic (FreeStyle Lite Strips) 1 strip miscellaneous TID blood-glucose meter (FreeStyle Lite Meter kit) check sugar once per day calcium carbonate-vitamin D3 600 mg-10 mcg (400 unit) 1 tab PO DAILY 90 days Centrum Silver 0.4 mg-300 mcg- 250 mcg (rsrmoqqf-ehw-OA-lycopen-lutein) 1 tab PO DAILY 90 days NS cranberry extract (Cranberry Concentrate) 500 mg PO DAILY 90 days cyanocobalamin (vitamin B-12) (Vitamin B-12) 100 mcg PO DAILY dorzolamide-timolol 22.3-6.8 mg/mL 1 drp ophthalmic (eye) BID fluticasone propionate 50 mcg/actuation 1 spray intranasal DAILY dcjhxsacxwl-ljdmxsvvt-uphbbcnk 200-62.5-25 mcg (Trelegy Ellipta) 1 inh inhalation DAILY 30 days insulin glargine U-300 conc (Toujeo SoloStar U-300 Insulin) 10 units (0.0333 mL) subcut DAILY latanoprost 0.005% 1 drp ophthalmic (eye) BEDTIME lisinopril 2.5 mg PO DAILY 90 days loratadine 10 mg PO DAILY PRN 90 days metformin ER 1,000 mg (2 x 500 mg) PO BID omeprazole 20 mg PO DAILY pen needle, diabetic (BD Shonna 2nd Gen Pen Needle) As directed once a day semaglutide (Ozempic) 0.5 mg (0.736 mL) subcut QWEEK 4 weeks simvastatin 10 mg PO BEDTIME 90 days Tobacco use date assessed: 07/27/24 Fall risk assessment: No Falls in past year Last assessed Fall Risk: 07/27/24 Dental Screening Dental Screen Date: 07/27/24 Did you have a dental visit in the last 12 months?: Yes Did you have a dental problem in the last 6 months where you did not have access to dental care?: No Was dental information given to patient?: Patient has dentist HPI DM, HTN, hyperlipidemia, asthma HPI Details Patient comes in today for her follow up visit States that she feels okay She denies any headaches or dizziness Denies any chest pains, no increased SOB - states that her asthma has been well-controlled on Trelegy and she has not even been using her Trelegy regularly / daily lately No nausea/vomiting, no abdominal pain No change in bowel habits noted Needs a couple of her Rx refilled She had her follow up labs done a few days ago - to discuss her results Would also like to get her flu shot today PFSH Medical History Calcified cerebral meningioma Subdural hematoma E. coli urinary tract infection Chronic kidney disease, stage III (moderate) Glaucoma, left eye Macular degeneration Allergic rhinitis Osteoporosis GERD (gastroesophageal reflux disease) Asthma Pure hypercholesterolemia Type 2 diabetes mellitus with diabetic chronic kidney disease Benign essential hypertension Surgical History Hx of colonoscopy Family History Father Unknown family medical history Mother Hyperten preg NOS-unspec Heart disease Social History Housing: Apartment Alcohol intake: never Patient Tobacco Use Status: Never used Tobacco e-Cigarette/Vaping Use: Never Used Second Hand Smoke Exposure: No service: No Current occupational status: retired Cognitive needs: No Hearing needs: No Vision needs: Yes Questionnaire PHQ-9 Over the last 2 weeks, how often have you been bothered by any of the following problems? 1. Little interest or pleasure in doing things: not at all 2. Feeling down, depressed, or hopeless: not at all 3. Trouble falling or staying asleep, or sleeping too much: not at all 4. Feeling tired or having little energy: not at all 5. Poor appetite or overeating: not at all 6. Feeling bad about yourself - or that you are a failure or have let yourself or your family down: not at all 7. Trouble concentrating on things, such as reading the newspaper or watching television: not at all 8. Moving or speaking so slowly that other people could have noticed. Or the opposite - being so fidgety or restless that you have been moving around a lot more than usual: not at all 9. Thoughts that you would be better off or of hurting yourself in some way: not at all Total score: 0 Depression Screening Interpretation: Negative Depression Screening Done: Yes 90683 - PHQ-9 Billing: Yes Source: Developed by Drs. Scott Feng, Whitney Villeda, Garett Greenberg and colleagues, with an educational cale from [employer]. Thrive Questionnaire Date Thrive assessed: 07/27/24 I am a: Patient What is your living situation today?: I have a steady place to live Within the past 12 months, did the food you bought not last and you didn't have the money to get more?: Never true Within the past 12 months, did you worry whether your food would run out before you got money to buy more?: Never true Do you have trouble paying for medicines?: No Do you have trouble getting transportation to medical appointments?: No Do you have trouble paying your heating and electricity bill?: No Do you have trouble taking care of your child, family member or friend?: No Do you have trouble with day-to-day activities such as bathing, preparing meals, shopping, managing finances, etc.?: No Are you currently unemployed and looking for a job?: No Are you interested in more education?: No Please select the resources that you would like help with: None Currently or been in a relationship where the following occur: No concerns reported THRIVE Score: 0 AUDIT C Alcohol Use Questionnaire (AUDIT-C) 1. How often do you have a drink containing alcohol?: Never 3. How often do you have six or more drinks on one occasion?: Never Total Score: 0 Score Reviewed/Action Taken: Yes INGA-7 AMB Questionnaire INGA-7 Date INGA - 7 assessed: 07/27/24 Feeling nervous, anxious, or on edge: 0 = Not at all Not being able to stop or control worryin = Not at all Worrying too much about different things: 0 = Not at all Trouble relaxin = Not at all Being so restless that it is hard to sit still: 0 = Not at all Becoming easily annoyed or irritable: 0 = Not at all Feeling afraid as if something awful might happen: 0 = Not at all Total INGA-7 score (0-4 normal; 5-9 mild; 10-14 moderate; 15-21 severe): 0 Source: Developed by Drs. Scott Feng, Whitney Villeda, Garett Greenberg and colleagues, with an educational cale from [employer]. Review of Systems Const Denies chills, Denies fatigue, Denies fever(s) and Denies headache(s) ENT Denies dysphagia, Denies dizziness, Denies otalgia, Denies headache(s), Denies neck pain, Denies odynophagia and Denies sore throat Card Denies chest pain, Denies irregular heart rhythm, Denies palpitations and Denies dyspnea Resp Denies cough, Denies hemoptysis, Denies dyspnea and Denies wheezing GI Denies abdominal pain, Denies constipation, Denies dysphagia, Denies heartburn, Denies diarrhea, Denies nausea, Denies odynophagia and Denies vomiting Denies urinary frequency, Denies dysuria, Denies urinary incontinence and Denies urinary urgency Musc Denies back pain, Denies arthralgias and Denies neck pain Skin/Breast Denies rash Neuro Denies dizziness, Denies headache(s) and Denies paresthesias Psych Denies anxiety and Denies depression Endo Denies fatigue and Denies palpitations Bennie/Lymph Denies easy bruising Aller/Immun Denies wheezing Physical exam (Primary Care) Vital Signs: Last Vital Signs Pulse 84 07/27/24 08:37 BP 110/84 07/27/24 08:37 Pulse Ox 98 07/27/24 08:37 Oxygen Delivery Method Room Air 07/27/24 08:37 BMI result Body Mass Index 21.6 Tobacco/Smoking Status: Tobacco use Status Tobacco use date assessed 07/27/24 07/27/24 08:39 Patient Tobacco Use Status Never used Tobacco 07/27/24 08:39 e-Cigarette/Vaping Use Never Used 07/27/24 08:39 PHQ-9: PHQ-9 Score PHQ-9: Total score 0 07/27/24 10:02 Depression Screening Interpretation: Negative Thrive Assessment: Date of Thrive Assessment Date Thrive assessed 07/27/24 07/27/24 08:39 Currently or been in a relationship where the following occur: No concerns reported Const General: no acute distress and alert HENMT Ears: TM's normal bilaterally and EAC's normal Throat: Yes posterior oropharynx normal and Yes tonsils normal (no TP congestion) Neck Neck: Yes no lymphadenopathy and Yes supple Thyroid: Thyroid normal Resp Auscultation: clear to auscultation bilaterally, no rales and no wheezes Cardio Rate: regular rate Rhythm: regular rhythm Heart sounds: no murmurs GI Palpation (GI): Soft to palpation and nontender Auscultation: normal bowel sounds General: Yes no CVA tenderness Back/Spine/Pelvis Back: no CVA tenderness Thoracic/Lumbar Spine: No lumbar spinal tenderness Skin Rashes: no rashes Extrem General: Yes no clubbing, cyanosis or edema Office Procedures Flu Questionnaire Does the patient have a severe egg allergy?: No Does the patient have severe life threatening allergies?: No Does the patient have a fever or illness today?: No Has the patient ever had Guillain-[place] Syndrome?: No Has the patient ever had any past reaction to a flu shot?: No Immunizations Fluarix Triv 8276-5077 (PF) 45 mcg (15 mcg x 3)/0.5 mL IM syringe Performing Provider: Todd Thompson MD [facility] Administered by: ELVIN Maldonado on 07/27/24 08:56 Dose Route Admin Location Dispensed Lot Number Expiration Date [facility] Palliative Care Nurse 0.5 mL IM Left Deltoid 0.5 mL [id number] 04/05/25 [id number] Earth Class Mail VIS Given Date VIS Provided VIS Publication Date 07/27/24 Single Vaccine 21 Eligibility Eligibility Date Funding Source Not [facility] Eligible 10/21/24 Private Results Reviewed Results Reviewed: Laboratory Tests 07/23/24 07/23/24 07:32 07:33 WBC 8.1 Hgb 12.9 Hct 38.9 Plt Count 272 Sodium 141 Potassium 4.4 Creatinine 1.15 Estimated GFR 45 Fasting Glucose 126 H Hemoglobin A1c % 6.9 H Calcium 10.3 H AST 21 ALT 15 Triglycerides 127 Cholesterol 145 LDL Cholesterol, Calc 76 HDL Cholesterol 44 Vitamin B12 605 25-OH Vitamin D Total 79.2 TSH 0.95 Ur Specific [place] 1.015 Urine Protein Negative Urine Glucose (UA) Negative Urine Blood Negative Urine Nitrite Negative Ur Leukocyte Esterase Trace H Microalb/Creat Ratio 33.8 H Coding Level of Care Code Est Pt Level 4 (06354) Diagnoses Type 2 diabetes mellitus with stage 2 chronic kidney disease, with long-term current use of insulin E11.22; N18.2; Z79.4 Chronic kidney disease stage: stage 2 (mild) Diabetes mellitus truck terminal manager insulin use: with penitentiary use Stage 3b chronic kidney disease N18.32 Chronic kidney disease stage 3 subtype: stage 3b (GFR 30-44) Pure hypercholesterolemia E78.00 Benign essential hypertension I10 Gastroesophageal reflux disease without esophagitis K21.9 Esophagitis presence: without esophagitis Moderate persistent asthma without complication J45.40 Asthma complication type: uncomplicated Asthma persistence: persistent Asthma severity: moderate Allergic rhinitis, unspecified seasonality, unspecified trigger J30.9 Allergic rhinitis seasonality: unspecified Allergic rhinitis trigger: unspecified Age-related osteoporosis without current pathological fracture M81.0 Osteoporosis type: age-related Presence of current pathological fracture: without current pathological fracture Calcified cerebral meningioma D32.0 Macular degeneration of left eye, unspecified type H35.30 Eye laterality: left Macular degeneration type: unspecified type Glaucoma of left eye, unspecified glaucoma type H40.9 Glaucoma type: unspecified Assessment & Plan Assessment & Plan (1) Type 2 diabetes mellitus with diabetic chronic kidney disease: Code(s): E11.22 - Type 2 diabetes mellitus with diabetic chronic kidney disease Category: Medical Qualifiers: Chronic kidney disease stage: stage 2 (mild) Diabetes mellitus penitentiary insulin use: with penitentiary use Qualified Code(s): E11.22 - Type 2 diabetes mellitus with diabetic chronic kidney disease; N18.2 - Chronic kidney disease, stage 2 (mild); Z79.4 - correction (current) use of insulin Plan: Patient's HgbA1c was at 6.9% on her labs done a few days ago (HgbA1c was at 7.4% a few months ago) - goal is <7.0% Reinforced diabetic diet Continue Metformin ER 500 mg 2 tabs BID, Toujeo Solostar 10 units SQ QD and Ozempic 0.5 mg SQ once a week Will recheck her FBS and HgbA1c in 4 months for follow up (2) Chronic kidney disease, stage III (moderate): Code(s): N18.30 - Chronic kidney disease, stage 3 unspecified Category: Medical Qualifiers: Chronic kidney disease stage 3 subtype: stage 3b (GFR 30-44) Qualified Code(s): N18.32 - Chronic kidney disease, stage 3b Plan: Stable - will continue to monitor her GFR and renal function regularly (3) Pure hypercholesterolemia: Code(s): E78.00 - Pure hypercholesterolemia, unspecified Category: Medical Plan: Results of her labs done a few days ago reviewed and discussed with patient Reinforced low cholesterol diet Continue Simvastatin 10 mg QD and Fish Oil capsules BID Will recheck her labs and fasting lipids in 4 months for follow up (4) Benign essential hypertension: Code(s): I10 - Essential (primary) hypertension Category: Medical Plan: Reinforced low sodium diet - goal is systolic BP of at least 130 to 140 mm or less Continue Lisinopril 2.5 mg QD and Amlodipine 2.5 mg QD (5) GERD (gastroesophageal reflux disease): Code(s): K21.9 - Gastro-esophageal reflux disease without esophagitis Category: Medical Qualifiers: Esophagitis presence: without esophagitis Qualified Code(s): K21.9 - Gastro-esophageal reflux disease without esophagitis Plan: Dietary restrictions reinforced (6) Asthma: Code(s): J45.909 - Unspecified asthma, uncomplicated Category: Medical Qualifiers: Asthma complication type: uncomplicated Asthma persistence: persistent Asthma severity: moderate Qualified Code(s): J45.40 - Moderate persistent asthma, uncomplicated Plan: Stable lately; she has not needed to use her rescue inhaler for a while now Continue Trelegy Ellipta 200-62.5-25 mcg 1 inhalation QD and Albuterol HFA 1 to 2 inhalations Q 6 hours PRN Follow up with pulmonary as scheduled (7) Allergic rhinitis: Code(s): J30.9 - Allergic rhinitis, unspecified Category: Medical Qualifiers: Allergic rhinitis seasonality: unspecified Allergic rhinitis trigger: unspecified Qualified Code(s): J30.9 - Allergic rhinitis, unspecified Plan: Continue Loratadine 10 mg QD PRN and Fluticasone nasal spray QD PRN (8) Osteoporosis: Code(s): M81.0 - Age-related osteoporosis without current pathological fracture Category: Medical Qualifiers: Osteoporosis type: age-related Presence of current pathological fracture: without current pathological fracture Qualified Code(s): M81.0 - Age-related osteoporosis without current pathological fracture Plan: Repeat BMD done most recently on 12/06/2023 showed no significant change in her overall BMD from her previous scan on 11/19/2018 - the lowest T-score is at -2.9 in the lumbar spine Continue oral Calcium and Vitamin D supplements daily She completed Tx with Alendronate for more than 5 years and Rx was discontinued a couple of years ago Fall precautions reinforced Will continue to monitor her BMD regularly (9) Calcified cerebral meningioma: Code(s): D32.0 - Benign neoplasm of cerebral meninges Category: Medical Plan: Head CT done on 12/06/2022 incidentally revealed a large bilobed calcified meningioma along the vertex line Per neurosurgery, as she has no acute neurologic symptoms, no further follow up or intervention for this is needed (10) Macular degeneration: Code(s): H35.30 - Unspecified macular degeneration Category: Medical Qualifiers: Eye laterality: left Macular degeneration type: unspecified type Qualified Code(s): H35.30 - Unspecified macular degeneration Plan: Patient states that she gets injections (Avastin?) into her eyes regularly with Dr. Ton [place] in [place] Follow up with ophthalmology and retina specialist as scheduled (11) Glaucoma, left eye: Code(s): H40.9 - Unspecified glaucoma Category: Medical Qualifiers: Glaucoma type: unspecified Qualified Code(s): H40.9 - Unspecified glaucoma Plan: Continue Latanoprost 0.005% and Dorzolamide 2% eye drops into the left eye Follow up with ophthalmology as scheduled Plan As requested, flu vaccine given to patient today Follow up in 4 months Orders: Orders Complete Blood Count Auto Diff 4 Months D64.9 - Anemia, unspecified Lipid Panel 4 Months E78.00 - Pure hypercholesterolemia, unspecified Hemoglobin A1c 4 Months E11.9 - Type 2 diabetes mellitus without complications Microalbumin, Random (w Creat) 4 Months E11.9 - Type 2 diabetes mellitus without complications Vitamin D 25-OH Total 4 Months E55.9 - Vitamin D deficiency, unspecified Influenza [id number] Immunization Today Z23 - Encounter for immunization Comprehensive [place]. Panel Fast 4 Months E78.00 - Pure hypercholesterolemia, unspecified UA CC w/rflx Micro + Cult 4 Months R30.0 - Dysuria TSH reflex Free T4 4 Months E78.00 - Pure hypercholesterolemia, unspecified Medications: Refilled loratadine 10 mg PO DAILY PRN 90 tabs 3RF allergy symptoms 90 days J30.9 - Allergic rhinitis, unspecified semaglutide (Ozempic) 0.5 mg (0.736 mL) subcut QWEEK 3 mL 2RF 4 weeks
== END 2024-07-27 10:10 | disposition home or self-care (01) ==
PROVIDERS: PCP Internal Medicine; Visit Provider Internal Medicine
DX: I12.9 Hypertensive chronic kidney disease with stage 1 through stage 4 chronic kidney disease, or unspecified chronic kidney disease (principal); E11.22 Type 2 diabetes mellitus with diabetic chronic kidney disease; N18.32 Chronic kidney disease, stage 3b; Z79.4 Long term (current) use of insulin; D32.0 Benign neoplasm of cerebral meninges; E78.00 Pure hypercholesterolemia, unspecified; K21.9 Gastro-esophageal reflux disease without esophagitis; J45.40 Moderate persistent asthma, uncomplicated; J30.9 Allergic rhinitis, unspecified; M81.0 Age-related osteoporosis without current pathological fracture; H35.30 Unspecified macular degeneration; H40.9 Unspecified glaucoma

== ENCOUNTER → 2024-07-27 08:08 | Outpatient (BNVA) | payer OTHER, SELFPAY | PROVIDERS: PCP Internal Medicine; Visit Provider Internal Medicine | DX: E11.22 Type 2 diabetes mellitus with diabetic chronic kidney disease (principal); I12.9 Hypertensive chronic kidney disease with stage 1 through stage 4 chronic kidney disease, or unspecified chronic kidney disease; N18.32 Chronic kidney disease, stage 3b; K21.9 Gastro-esophageal reflux disease without esophagitis; E78.00 Pure hypercholesterolemia, unspecified; Z23 Encounter for immunization; J45.40 Moderate persistent asthma, uncomplicated; J30.9 Allergic rhinitis, unspecified; M81.0 Age-related osteoporosis without current pathological fracture; D32.0 Benign neoplasm of cerebral meninges; H35.30 Unspecified macular degeneration; H40.9 Unspecified glaucoma; Z79.4 Long term (current) use of insulin; Z79.899 Other long term (current) drug therapy | CPT/HCPCS: 90471; 90656; 96127; 99212 ==

== ENCOUNTER 2024-10-06 10:56 | Outpatient (AMB) | payer OTHER, SELFPAY ==
[2024-10-06 11:21] VITALS: BP 116/72; PULSE 92; TEMP 36.2; O2SAT 97; BMI 22.1
--- NOTE | 2024-10-06 11:21 | A.OFFPC_ITS ---
Vital Signs 10/06/24 11:21 Height 4 ft 11 in Weight 109 lb 6 oz BMI 22.1 BP 116/72 Blood Pressure Location Lt brachial Position Sitting Pulse 92 Pulse Source Pulse Oximeter Temp 97.2 F Temp Source Oral Pulse Oximetry (%) 97 Oxygen Delivery Method Room Air Intake Visit Reasons: Preop eye surgery 10/12/24, pre op Intake Note: 84 y/o female here for pre-Op. Pt will be seeing Dr. Jacobo at [facility], pt will be having cataract surgery on right eye on 10/12/24 followed by left eye cataract surgery on 10/26/24. Anesthesia: Local anesthesia Precision Assembler Bench Required: No Accompanied by: Self / Same As Patient Allergies codeine [CODEINE] Adverse Reaction (Intermediate, Verified 10/06/24 11:33) DIZZINESS Medication List - Last Reconciled 10/06/24 by MANUELA Alegria albuterol sulfate 90 mcg/actuation (Ventolin HFA) 2 puffs inhalation Q4-6H PRN amlodipine 2.5 mg PO DAILY 90 days ascorbate calcium (vitamin C) 500 mg PO DAILY 90 days blood sugar diagnostic (FreeStyle Lite Strips) As directed- In Vitro three times a day. blood sugar diagnostic (FreeStyle Lite Strips) 1 strip miscellaneous TID blood-glucose meter (FreeStyle Lite Meter kit) check sugar once per day calcium carbonate-vitamin D3 600 mg-10 mcg (400 unit) 1 tab PO DAILY 90 days Centrum Silver 0.4 mg-300 mcg- 250 mcg (yauvyrxb-wyu-NJ-lycopen-lutein) 1 tab PO DAILY 90 days NS cranberry extract (Cranberry Concentrate) 500 mg PO DAILY 90 days cyanocobalamin (vitamin B-12) (Vitamin B-12) 100 mcg PO DAILY dorzolamide-timolol 22.3-6.8 mg/mL 1 drp ophthalmic (eye) BID fluticasone propionate 50 mcg/actuation 1 spray intranasal DAILY kwnmllmtsvn-kyuctuejs-qlhsftbf 200-62.5-25 mcg (Trelegy Ellipta) 1 inh inhalation DAILY 30 days insulin glargine U-300 conc (Toujeo SoloStar U-300 Insulin) 10 units subcut QAM latanoprost 0.005% 1 drp ophthalmic (eye) BEDTIME lisinopril 2.5 mg PO DAILY 90 days loratadine 10 mg PO DAILY PRN 90 days metformin ER 1,000 mg (2 x 500 mg) PO BID omeprazole 20 mg PO DAILY pen needle, diabetic (BD Shonna 2nd Gen Pen Needle) As directed once a day semaglutide (Ozempic) 0.5 mg (0.736 mL) subcut QWEEK 4 weeks simvastatin 10 mg PO BEDTIME 90 days Tobacco use date assessed: 10/06/24 Fall risk assessment: No Falls in past year Last assessed Fall Risk: 10/06/24 Dental Screening Dental Screen Date: 10/06/24 Did you have a dental visit in the last 12 months?: Yes Did you have a dental problem in the last 6 months where you did not have access to dental care?: No Was dental information given to patient?: Patient has dentist HPI pre op HPI Details The patient is a 84-year-old female who presents today for preoop clearance. Patient of Dr. Thompson. Surgery: Right cataract sugery -The patient is a type 2 diabetic with significant hx of glaucoma in left eye, macular degeneration, benign essential hypertension, asthma. Surgeon/Location:Cameron Jacobo MD at [facility], [place], [place] The patient denies clotting disorders and she is not taking any DMDs or blood thinners. The patient denies chest pain, SOB, heart palpitation, or dizziness PFSH Medical History Calcified cerebral meningioma Subdural hematoma E. coli urinary tract infection Chronic kidney disease, stage III (moderate) Glaucoma, left eye Macular degeneration Allergic rhinitis Osteoporosis GERD (gastroesophageal reflux disease) Asthma Pure hypercholesterolemia Type 2 diabetes mellitus with diabetic chronic kidney disease Benign essential hypertension Surgical History Hx of colonoscopy Family History Father Unknown family medical history Mother Hyperten preg NOS-unspec Heart disease Social History Housing: Apartment Are you a primary healthcare associate to a significant other at home: No Do you presently have visiting nurse or other home services: No Alcohol intake: never Patient Tobacco Use Status: Never used Tobacco e-Cigarette/Vaping Use: Never Used Second Hand Smoke Exposure: No service: No Current occupational status: retired Cognitive needs: No Hearing needs: No Vision needs: Yes Questionnaire PHQ-9 Over the last 2 weeks, how often have you been bothered by any of the following problems? 1. Little interest or pleasure in doing things: not at all 2. Feeling down, depressed, or hopeless: not at all 3. Trouble falling or staying asleep, or sleeping too much: not at all 4. Feeling tired or having little energy: not at all 5. Poor appetite or overeating: not at all 6. Feeling bad about yourself - or that you are a failure or have let yourself or your family down: not at all 7. Trouble concentrating on things, such as reading the newspaper or watching television: not at all 8. Moving or speaking so slowly that other people could have noticed. Or the opposite - being so fidgety or restless that you have been moving around a lot more than usual: not at all 9. Thoughts that you would be better off or of hurting yourself in some way: not at all Total score: 0 Depression Screening Interpretation: Negative Depression Screening Done: Yes 20241 - PHQ-9 Billing: Yes Source: Developed by Drs. Scott Feng, Whitney Villeda, Garett Greenberg and colleagues, with an educational cale from [employer]. Thrive Questionnaire Date Thrive assessed: 10/06/24 I am a: Patient What is your living situation today?: I have a steady place to live Within the past 12 months, did the food you bought not last and you didn't have the money to get more?: Never true Within the past 12 months, did you worry whether your food would run out before you got money to buy more?: Never true Do you have trouble paying for medicines?: No Do you have trouble getting transportation to medical appointments?: No Do you have trouble paying your heating and electricity bill?: No Do you have trouble taking care of your child, family member or friend?: No Do you have trouble with day-to-day activities such as bathing, preparing meals, shopping, managing finances, etc.?: No Are you currently unemployed and looking for a job?: No Are you interested in more education?: No Please select the resources that you would like help with: None Currently or been in a relationship where the following occur: No concerns reported THRIVE Score: 0 AUDIT C Alcohol Use Questionnaire (AUDIT-C) 1. How often do you have a drink containing alcohol?: Never 3. How often do you have six or more drinks on one occasion?: Never Total Score: 0 Score Reviewed/Action Taken: Yes INGA-7 AMB Questionnaire INGA-7 Date INGA - 7 assessed: 10/06/24 Feeling nervous, anxious, or on edge: 0 = Not at all Not being able to stop or control worryin = Not at all Worrying too much about different things: 0 = Not at all Trouble relaxin = Not at all Being so restless that it is hard to sit still: 0 = Not at all Becoming easily annoyed or irritable: 0 = Not at all Feeling afraid as if something awful might happen: 0 = Not at all Total INGA-7 score (0-4 normal; 5-9 mild; 10-14 moderate; 15-21 severe): 0 Source: Developed by Drs. Scott Feng, Whitney Villeda, Garett barnes nd colleagues, with an educational cale from [employer]. Review of Systems Const Details: Const Denies chills, Denies fatigue, Denies fever(s), Denies headache(s) and Denies weakness ENT Denies dizziness and Denies headache(s) Card Denies chest pain, Denies lightheadedness, Denies dyspnea and Denies other (Palpitations) Resp Denies cough, Denies dyspnea, Denies wheezing and Denies other ( shortness of breath) GI Denies abdominal pain, Denies melena, Denies hematochezia, Denies change in bowel habits, Denies dyspepsia and Denies nausea Denies hematuria and Denies dysuria Musc Denies abnormal gait, Denies myalgias, Denies arthralgias, Denies numbness and Denies tingling Skin/Breast Denies rash, Denies unusual bruising and Denies wounds Neuro Denies abnormal gait, Denies dizziness, Denies headache(s), Denies memory loss, Denies numbness, Denies Sensory deficit (Neuro), Denies tingling and Denies weakness Psych Denies anxiety, Denies depression, Denies memory loss Endo Denies cold intolerance, Denies fatigue, Denies heat intolerance, Denies polydipsia and Denies polyuria Aller/Immun Denies wheezing Physical exam (Primary Care) Vital Signs: Last Vital Signs Temp 97.2 F 10/06/24 11:21 Pulse 92 10/06/24 11:21 BP 116/72 10/06/24 11:21 Pulse Ox 97 10/06/24 11:21 Oxygen Delivery Method Room Air 10/06/24 11:21 BMI result Body Mass Index 22.1 Tobacco/Smoking Status: Tobacco use Status Tobacco use date assessed 10/06/24 10/06/24 11:27 Patient Tobacco Use Status Never used Tobacco 10/06/24 11:27 e-Cigarette/Vaping Use Never Used 10/06/24 11:27 PHQ-9: PHQ-9 Score PHQ-9: Total score 0 10/06/24 11:42 Depression Screening Interpretation: Negative Thrive Assessment: Date of Thrive Assessment Date Thrive assessed 10/06/24 10/06/24 11:27 Currently or been in a relationship where the following occur: No concerns reported Const Other: General: no acute distress and well developed Nutritional Appearance: well nourished Orientation/consciousness: patient oriented x3 HENMT Head: Yes normocephalic and Yes atraumatic Eyes General: appearance normal, both eyes and all related structures Pupils: Equal, round and reactive pupils present EOM: EOMs intact bilaterally Resp Effort & Inspection: normal respiratory effort Auscultation: clear to auscultation bilaterally Cardio Rate: regular rate Rhythm: regular rhythm Heart sounds: S1 normal heart sound present, S2 normal heart sound present, no gallops, no murmurs and no rubs GI Palpation (GI): No Abdominal aortic bruit present, Soft to palpation, nontender, No hepatosplenomegaly present and No Rebound tenderness present Auscultation: normal bowel sounds General: Yes no CVA tenderness Back/Spine/Pelvis Back: no CVA tenderness Cervical Spine: cervical ROM normal and No Cervical spine tenderness Thoracic/Lumbar Spine: thoraco-lumbar ROM normal, No pain with thoraco-lumbar ROM, No thoracic spinal tenderness and No lumbar spinal tenderness Extrem General: Yes normal to inspection, No edema and No calf tenderness Skin General: warm and dry. Normal skin color. Normal skin turgor Lesions: no lesions Rashes: no rashes Trauma: no lacerations or abrasions Wounds: no wounds Nails: normal Neuro General: patient oriented x3, gait normal and no focal neuro deficit Cranial nerves: Yes Equal, round and reactive pupils present Cognition (Neuro): normal cognition Gait exam (Neuro): Normal gait present Sensory Exam: No Sensory deficit (Neuro) Psych Appearance: grossly normal Affect: normal affect Attitude: cooperative Thought process: Normal thought process present Results AMB Hemoglobin A1c AMB Hemoglobin A1c 6.6 % Last Edit by ELVIN Maldonado on 10/06/24 11 :42 Results Reviewed Results Reviewed: Laboratory Last Values Hgb A1c (Clinic) 6.6 % (4.0-6.0) H 10/06/24 11:36 Laboratory Tests 07/23/24 10/06/24 07:33 11:36 WBC 8.1 RBC 4.20 Hgb 12.9 Hct 38.9 Plt Count 272 Sodium 141 Potassium 4.4 Chloride 106 BUN 18 H Creatinine 1.15 Fasting Glucose 126 H Hgb A1c (Clinic) 6.6 H AST 21 Triglycerides 127 Cholesterol 145 LDL Cholesterol, Calc 76 HDL Cholesterol 44 TSH 0.95 Coding Level of Care Code Est Pt Level 3 (31878) Diagnoses Encounter for other preprocedural examination Z01.818 Additional Codes PHQ-9 - 38435 - PHQ-9 Billing: Yes ([id number]) Assessment & Plan Assessment & Plan (1) Encounter for other preprocedural examination: Code(s): Z01.818 - Encounter for other preprocedural examination Category: Medical Plan: The patient is scheduled to have right eye cataract surgery done on 10/12/24 followed by left eye on the 10/26/24. A1c in office today was 6.6%. In addition, the most recent labs were inserted in the chart. The patient reports that she has been off her ozempic since last Saturday09/30/24. The patient was told that she could resume this med on 10/14/24. She also reports that she takes her Toujeo in the morning. The patient was instructed since she is going to be NPO at midnight, she should hold this medication till after surgery-when she starts eating/drinking again. The patient was instructed to take her blood pressure medications with sips of water in the morning. She could skip her morning dose metformin and take the evening dose (she does not think she would be able to take the metformin with sips of water due to the size of the pill). Through shared decision making: All other medication will be held until after surgery. The patient blood pressure is well controlled on her current regimen. Her Asthma has been stable as well. Regarding preop clearance, the patient is at acceptable risk for the proposed surgery. Reviewed with the patient that no surgery is completely free of risk and that this examination is to assist the surgeon in reviewing informed consent. Plan Follow up with PCP as scheduled in November 2024 Orders: Orders AMB Hemoglobin A1c 10/06/24 Z13.9 - Encounter for screening, unspecified
== END 2024-10-06 15:27 | disposition home or self-care (01) ==
PROVIDERS: PCP Internal Medicine
DX: Z01.818 Encounter for other preprocedural examination (principal); H25.013 Cortical age-related cataract, bilateral

== ENCOUNTER → 2024-10-06 10:56 | Outpatient (BNVA) | payer OTHER, SELFPAY | PROVIDERS: PCP Internal Medicine | DX: Z01.818 Encounter for other preprocedural examination (principal); E11.9 Type 2 diabetes mellitus without complications; I10 Essential (primary) hypertension; J45.909 Unspecified asthma, uncomplicated | CPT/HCPCS: 83036; 96127; 99212 ==

== ENCOUNTER 2024-10-12 07:35 | Day surgery (SDC) | payer OTHER, SELFPAY ==
[2024-10-06 08:02] VITALS: BMI 22.2
--- NOTE | 2024-10-08 12:40 | HO.ANESPROP2 ---
Documented by User: Becka Palomares NP 10/08/24 12:41 HPI - Anesthesia Eval Consult details Narrative: 84yo F for Right Cataract Extraction IOL Insertion No previous cataract on record Anesthesia Pre-Procedure Meds Is the patient on any of the following meds?: GLP1/DPP4 PMFSH Active Problems Active Problems: All Active Problems Encounter for other preprocedural examination (Acute) Urinary incontinence (Acute) Annual physical exam (Acute) Asthma exacerbation (Acute) Chronic sinusitis (Acute) Cough (Acute) Calcified cerebral meningioma (Acute) Subdural hematoma (Acute) E. coli urinary tract infection (Acute) Chronic kidney disease, stage III (moderate) (Acute) Exertional dyspnea (Acute) Glaucoma, left eye (Acute) Macular degeneration (Acute) Allergic rhinitis (Acute) Osteoporosis (Acute) GERD (gastroesophageal reflux disease) (Acute) Asthma (Acute) Pure hypercholesterolemia (Acute) Type 2 diabetes mellitus with diabetic chronic kidney disease (Acute) Benign essential hypertension (Acute) Past Medical History Medical History Calcified cerebral meningioma Subdural hematoma E. coli urinary tract infection Chronic kidney disease, stage III (moderate) Glaucoma, left eye Macular degeneration Allergic rhinitis Osteoporosis GERD (gastroesophageal reflux disease) Asthma Pure hypercholesterolemia Type 2 diabetes mellitus with diabetic chronic kidney disease Benign essential hypertension Family History Family History Father Unknown family medical history Mother Hyperten preg NOS-unspec Heart disease Surgical History Surgical History History of surgery of uterus Hx of colonoscopy Social History Social History Housing: Apartment Are you a primary patient care specialist to a significant other at home: No Do you presently have visiting nurse or other home services: No Alcohol intake: never Patient Tobacco Use Status: Never used Tobacco e-Cigarette/Vaping Use: Never Used Second Hand Smoke Exposure: No Use of substances other than those prescribed or required for medical reasons: No Have you been hit, kicked, punched, or otherwise hurt by someone within the past year? If so, by whom?: No Spiritual Healthcare Practices: none Religion Healthcare Practices: Judaism Cultural Healthcare Practices: none Are you DNR?: No Advance Directives: No (daughter is primary contact) Advance Directives Information Provided: Yes (as above noted) Advance Directives on File: No Recently lost weight without trying: No Eating poorly because of decreased appetite: No Nutrition Risks: Surgical patient >75years FDLMP: n/a Poor oral hygiene: No (upper & lower partials) service: No Current occupational status: retired Cognitive needs: No Hearing needs: No Vision needs: Yes Meds Allergies Allergy/AdvReac Type Severity Reaction Status Date / Time codeine [CODEINE] AdvReac Intermediate DIZZINESS Verified 10/12/24 08:13 Home Medications ?Medication ?Instructions ?Recorded ?Confirmed ?Last Taken ?Type blood sugar diagnostic (FreeStyle #10 ea 01/23/21 10/06/24 Unknown History Lite Strips) insulin glargine U-300 conc 300 10 unit subcut QAM 10/06/24 10/12/24 10/12/24 05:00 History unit/mL (1.5 mL) subcutaneous pen 5 units (Toujeo SoloStar U-300 Insulin) Exam Height,Weight and Vital Signs: Height 4 ft 11 in Weight 49.895 kg Assessment and Plan Assessment Anesthesia Assessment: Chart Reviewed Documented by User: [place] MD 10/12/24 09:32 [facility] Past Medical History Medical History Calcified cerebral meningioma Subdural hematoma E. coli urinary tract infection Chronic kidney disease, stage III (moderate) Glaucoma, left eye Macular degeneration Allergic rhinitis Osteoporosis GERD (gastroesophageal reflux disease) Asthma Pure hypercholesterolemia Type 2 diabetes mellitus with diabetic chronic kidney disease Benign essential hypertension Family History Family History Father Unknown family medical history Mother Hyperten preg NOS-unspec Heart disease Surgical History Surgical History History of surgery of uterus Hx of colonoscopy History of Problems with Anesthesia: No Social History Social History Housing: Apartment Are you a primary patient care specialist to a significant other at home: No Do you presently have visiting nurse or other home services: No Alcohol intake: never Patient Tobacco Use Status: Never used Tobacco e-Cigarette/Vaping Use: Never Used Second Hand Smoke Exposure: No Use of substances other than those prescribed or required for medical reasons: No Have you been hit, kicked, punched, or otherwise hurt by someone within the past year? If so, by whom?: No Spiritual Healthcare Practices: none Religion Healthcare Practices: Judaism Cultural Healthcare Practices: none Are you DNR?: No Advance Directives: No (daughter is primary contact) Advance Directives Information Provided: Yes (as above noted) Advance Directives on File: No Recently lost weight without trying: No Eating poorly because of decreased appetite: No Nutrition Risks: Surgical patient >75years FDLMP: n/a Poor oral hygiene: No (upper & lower partials) service: No Current occupational status: retired Cognitive needs: No Hearing needs: No Vision needs: Yes Meds Allergies Allergy/AdvReac Type Severity Reaction Status Date / Time codeine [CODEINE] AdvReac Intermediate DIZZINESS Verified 10/12/24 08:13 Home Medications ?Medication ?Instructions ?Recorded ?Confirmed ?Last Taken ?Type blood sugar diagnostic (FreeStyle #10 ea 01/23/21 10/06/24 Unknown History Lite Strips) insulin glargine U-300 conc 300 10 unit subcut QAM 10/06/24 10/12/24 10/12/24 05:00 History unit/mL (1.5 mL) subcutaneous pen 5 units (Toujeo SoloStar U-300 Insulin) Exam Airway Mallampati Class: II TM Dist: >3cm Neck ROM: Full Partial: Upper and Lower Loose/Missing/Broken Teeth: Yes, Upper and Lower Heart: RRR Lungs: CTA Assessment and Plan Assessment Anesthesia Assessment: Anesthesia Plan Discussed Final Anesthetic Review History of Problems with Anesthesia: No NPO: Yes ASA Class: III Final Preanesthetic Review: Meds/Allgs Chart Reviewed, Consent Obtained/Reviewed and Anes Risks/Benef Reviewed Patient Risk: Intermediate Procedure Risk: Low Anesthetic Plan Anesthetic Plan: MAC: Disposition: Standard PACU
[2024-10-12 08:17] VITALS: BP 171/93; PULSE 98; RESP 16; TEMP 36.9; O2SAT 98; BMI 22.4
[2024-10-12] MEDS: Tetracaine HCl/PF 0.5% Oph Sol 4 ML DROPS 1 DROP EYE-RIGHT (08:22)
[2024-10-12 08:23] LABS: Glucose, Whole Blood 144 mg/dL (60-115)
[2024-10-12] MEDS: Cyclopentolate 1 % Ophth Sol 2 ML DRPBTL 1 DROP EYE-RIGHT ×3 (08:23→08:39)
[2024-10-12] MEDS: Tropicamide 1 % Ophth Sol 3 ML BTL 1 DROP EYE-RIGHT ×3 (08:25→08:41)
[2024-10-12] MEDS: Ketorolac Tromethamine 0.5% Op 10 ML DROPS 1 DROP EYE-RIGHT ×3 (08:27→08:43)
[2024-10-12] MEDS: Phenylephrine HCL 2.5% Oph SoL 2 ML BOTTLE 1 DROP EYE-RIGHT ×3 (08:29→08:45)
[2024-10-12] MEDS: Lactated Ringers 500 ML 50 ML IV (08:31)
--- NOTE | 2024-10-12 09:16 | P.PCNO_ITS ---
Ophthalmology Procedure Procedure Date of Service: 10/12/24 Ophthalmology Viscoelastic: Healon Duet Dual Pack Pro Ophthalmology Lenses: IOL Acrysof MP - [id number] (22) Procedure Notes: PREOPERATIVE DIAGNOSIS: Decreased visual acuity right eye secondary to cataract POSTOPERATIVE DIAGNOSIS: Same PROCEDURE: Right cataract extraction with intraocular lens insertion SURGEON: Cameron Jacobo M.D. ANESTHESIA: Topical/MAC ESTIMATED BLOOD LOSS: None COMPLICATIONS: None After obtaining informed consent, the patient was brought to the operating room suite and placed in the supine position. After adequate sedation per anesthesia, topical drops of Tetracaine were given to the right eye. The eye was then prepped and draped in the usual sterile fashion. The operating room microscope was then positioned over the operative eye and a lid speculum placed. A paracentesis was created. Viscoelastic was then instilled into the anterior chamber. A three plane incision was then created temporally, utilizing a 2.85 mm keratome. Capsulotomy forceps were then utilized to create a circular tear capsulotomy. Hydrodissection and hydrodelineation were carried out until adequate mobilization of the nucleus occurred. Phacoemulsification was then utilized to remove the dense central nucl eus followed by removal of the cortical material utilizing the automated aspiration irrigation unit. Viscoelastic was instilled into the posterior capsular bag followed by placement of a posterior chamber intraocular lens without difficulty. The residual Viscoelastic was then removed utilizing the automated IA machine. The wound was checked and found to be watertight. The patient tolerated the procedure well and the lid speculum was removed. Intracameral injection of Vigamox 0.1 mL followed by a subtenon injection of Kenalog-40 0.2 mL were administered. The patient will be seen in the a.m.
--- NOTE | 2024-10-12 09:16 | MHC.SHP ---
Pre-Procedural Eval Section A - 24 Hr Update-Section A only Date of Service: 10/12/24 The patient is an INPATIENT: No Changes since office visit: No Cold of Flu in the past 2 weeks, No New Medical Problems, No Changes in Medication and No Patient answered all questions The patient has been examined within 24 hours of the surgical procedure. The History & Physical has been completed within 30 days and I have reviewed it.: Yes Section B - Complete if H&P > 30 days Chief Complaint: Age-related nuclear cataract, right eye Allergies: Allergies Allergy/AdvReac Type Severity Reaction Status Date / Time codeine [CODEINE] AdvReac Intermediate DIZZINESS Verified 10/12/24 08:13 Plan Diagnosis/Plan: Unchanged I have reviewed the history and physical and performed a pertinent physical examination on my patient. No changes have occurred unless specified. Time Spent With Patient Time: Total time managing care of this patient today ____ minutes.
[2024-10-12 09:50] VITALS: BP 170/93; PULSE 99; RESP 16; TEMP 37; O2SAT 98
== END 2024-10-12 09:59 | disposition home or self-care (01) ==
PROVIDERS: PCP Internal Medicine; Visit Provider Ophthalmology
PROC: (CPT 66985; principal; 2024-10-12 09:30)
DX: H25.11 Age-related nuclear cataract, right eye (principal); H54.7 Unspecified visual loss; H35.3112 Nonexudative age-related macular degeneration, right eye, intermediate dry stage; H40.052 Ocular hypertension, left eye; H35.312 Nonexudative age-related macular degeneration, left eye; E11.22 Type 2 diabetes mellitus with diabetic chronic kidney disease; I12.9 Hypertensive chronic kidney disease with stage 1 through stage 4 chronic kidney disease, or unspecified chronic kidney disease; N18.30 Chronic kidney disease, stage 3 unspecified; Z79.4 Long term (current) use of insulin; Z79.84 Long term (current) use of oral hypoglycemic drugs; Z79.85 Long-term (current) use of injectable non-insulin antidiabetic drugs; Z79.51 Long term (current) use of inhaled steroids; Z79.899 Other long term (current) drug therapy; Z88.5 Allergy status to narcotic agent
CPT/HCPCS: 66984; 82947; J3010; J3301; V2630

== ENCOUNTER 2024-10-26 07:02 | Day surgery (SDC) | payer OTHER, SELFPAY ==
[2024-10-06 08:05] VITALS: BMI 22.2
[2024-10-26 07:49] VITALS: BP 144/80; PULSE 91; RESP 14; TEMP 36.6; O2SAT 98
[2024-10-26] MEDS: Tetracaine HCl/PF 0.5% Oph Sol 4 ML DROPS 1 DROP EYE-LEFT (07:52)
[2024-10-26] MEDS: Cyclopentolate 1 % Ophth Sol 2 ML DRPBTL 1 DROP EYE-LEFT ×3 (07:55→07:59)
[2024-10-26] MEDS: Ketorolac Tromethamine 0.5% Op 10 ML DROPS 1 DROP EYE-LEFT ×3 (07:56→08:00)
[2024-10-26] MEDS: Phenylephrine HCL 2.5% Oph SoL 2 ML BOTTLE 1 DROP EYE-LEFT ×3 (07:56→08:02)
[2024-10-26] MEDS: Tropicamide 1 % Ophth Sol 3 ML BTL 1 DROP EYE-LEFT ×3 (07:57→08:01)
[2024-10-26 08:11] VITALS: BMI 21.6
[2024-10-26] MEDS: Lactated Ringers 500 ML 50 ML IV (08:12)
[2024-10-26 08:19] LABS: Glucose, Whole Blood 97 mg/dL (60-115)
--- NOTE | 2024-10-26 08:23 | P.CONAN_ITS ---
[facility] Active Problems Active Problems: All Active Problems Encounter for other preprocedural examination (Acute) Urinary incontinence (Acute) Annual physical exam (Acute) Asthma exacerbation (Acute) Chronic sinusitis (Acute) Cough (Acute) Exertional dyspnea (Acute) Calcified cerebral meningioma (Acute) Subdural hematoma (Acute) E. coli urinary tract infection (Acute) Chronic kidney disease, stage III (moderate) (Acute) Glaucoma, left eye (Acute) Macular degeneration (Acute) Allergic rhinitis (Acute) Osteoporosis (Acute) GERD (gastroesophageal reflux disease) (Acute) Asthma (Acute) Pure hypercholesterolemia (Acute) Type 2 diabetes mellitus with diabetic chronic kidney disease (Acute) Benign essential hypertension (Acute) Past Medical History Medical History Calcified cerebral meningioma Subdural hematoma E. coli urinary tract infection Chronic kidney disease, stage III (moderate) Glaucoma, left eye Macular degeneration Allergic rhinitis Osteoporosis GERD (gastroesophageal reflux disease) Asthma Pure hypercholesterolemia Type 2 diabetes mellitus with diabetic chronic kidney disease Benign essential hypertension Family History Family History Father Unknown family medical history Mother Hyperten preg NOS-unspec Heart disease Surgical History Surgical History History of surgery of uterus Hx of colonoscopy History of Problems with Anesthesia: No Social History Social History Housing: Apartment Are you a primary patient care specialist to a significant other at home: No Do you presently have visiting nurse or other home services: No Alcohol intake: never Patient Tobacco Use Status: Never used Tobacco e-Cigarette/Vaping Use: Never Used Second Hand Smoke Exposure: No Use of substances other than those prescribed or required for medical reasons: No Have you been hit, kicked, punched, or otherwise hurt by someone within the past year? If so, by whom?: No Spiritual Healthcare Practices: none Mu-Ism Healthcare Practices: Ep[employer]opalian Cultural Healthcare Practices: none Are you DNR?: No Advance Directives: No (daughter is primary contact) Advance Directives Information Provided: Yes (as above noted) Advance Directives on File: No Recently lost weight without trying: No Eating poorly because of decreased appetite: No Nutrition Risks: Surgical patient >75years FDLMP: n/a Poor oral hygiene: No (upper & lower partials) service: No Current occupational status: retired Cognitive needs: No Hearing needs: No Vision needs: Yes Meds Allergies Allergy/AdvReac Type Severity Reaction Status Date / Time codeine [CODEINE] AdvReac Intermediate DIZZINESS Verified 10/26/24 07:39 Active Medications: Current Medications Lactated Ringer's (Lr) 500 mls @ 50 mls/hr IV .Q10H VLAD Stop: 10/26/24 18:14 Last Admin: 10/26/24 08:12 Dose: 50 mls/hr Povidone Iodine (Povidone Iodine 5 % Ophth Soln 30 Ml Bottle) 1 appl EYE-LEFT PREOP PRN PRN Reason: Pre-Op Surgical Implant Prophy Home Medications ?Medication ?Instructions ?Recorded ?Confirmed ?Last Taken ?Type blood sugar diagnostic (FreeStyle #10 ea 01/23/21 10/06/24 Unknown History Lite Strips) insulin glargine U-300 conc 300 10 unit subcut QAM 10/06/24 10/12/24 10/12/24 05:00 History unit/mL (1.5 mL) subcutaneous pen 5 units (Toujeo SoloStar U-300 Insulin) Exam Height,Weight and Vital Signs: Height 4 ft 11 in Weight 48.534 kg Last Vital Signs Temp 97.9 F 10/26/24 07:49 Pulse 91 10/26/24 07:49 Resp 14 10/26/24 07:49 BP 144/80 H 10/26/24 07:49 Pulse Ox 98 10/26/24 07:49 O2 Del Method Room Air 10/26/24 07:49 Pertinent Lab Results Pertinent Lab Results: Laboratory Tests 10/26/24 08:15 POC Glucose 97 Airway Mallampati Class: III TM Dist: >3cm Neck ROM: Limited Partial: Upper Loose/Missing/Broken Teeth: Yes and Upper Heart: RRR Lungs: CTA Assessment and Plan Assessment Anesthesia Assessment: Anesthesia Plan Discussed and Chart Reviewed Final Anesthetic Review History of Problems with Anesthesia: No NPO: Yes ASA Class: III Final Preanesthetic Review: Meds/Allgs Chart Reviewed, Consent Obtained/Reviewed and Anes Risks/Benef Reviewed Patient Risk: Intermediate Procedure Risk: Low Anesthetic Plan Anesthetic Plan: MAC: Disposition: Standard PACU
--- NOTE | 2024-10-26 08:23 | MHC.SHP ---
Pre-Procedural Eval Section A - 24 Hr Update-Section A only Date of Service: 10/26/24 The patient is an INPATIENT: No Changes since office visit: No Cold of Flu in the past 2 weeks, No New Medical Problems, No Changes in Medication and No Patient answered all questions The patient has been examined within 24 hours of the surgical procedure. The History & Physical has been completed within 30 days and I have reviewed it.: Yes Section B - Complete if H&P > 30 days Chief Complaint: Age-related nuclear cataract, left eye Allergies: Allergies Allergy/AdvReac Type Severity Reaction Status Date / Time codeine [CODEINE] AdvReac Intermediate DIZZINESS Verified 10/26/24 07:39 Plan Diagnosis/Plan: Unchanged I have reviewed the history and physical and performed a pertinent physical examination on my patient. No changes have occurred unless specified. Time Spent With Patient Time: Total time managing care of this patient today ____ minutes.
--- NOTE | 2024-10-26 08:23 | HO.PNOPHT ---
Ophthalmology Procedure Procedure Date of Service: 10/26/24 Ophthalmology Viscoelastic: Healon Duet Dual Pack Pro Ophthalmology Lenses: IOL Acrysof MP - [id number] (22) Procedure Notes: PREOPERATIVE DIAGNOSIS: Decreased visual acuity left eye secondary to cataract POSTOPERATIVE DIAGNOSIS: Same PROCEDURE: Left cataract extraction with intraocular lens insertion SURGEON: Cameron Jacobo M.D. ANESTHESIA: Topical/MAC ESTIMATED BLOOD LOSS: None COMPLICATIONS: None After obtaining informed consent, the patient was brought to the operation room suite and placed in the supine position. After adequate sedation per anesthesia, topical drops of Tetracaine were given to the left eye. The eye was then prepped and draped in the usual sterile fashion. The operating room microscope was then positioned over the operative eye and a lid speculum placed. A paracentesis was created. Viscoelastic was then instilled into the anterior chamber. A three plane incision was then created temporally, utilizing a 2.85 mm keratome. Capsulotomy forceps were then utilized to create a circular tear capsulotomy. Hydrodissection and hydrodelineation were carried out until adequate mobilization of the nucleus occurred. Phacoemulsification was then utilized to remove the dense central nucleus followed by removal of the cortical material utilizing the automated aspiration irrigation unit. Viscoat elastic was instilled into the posterior capsular bag followed by placement of a posterior chamber intraocular lens without difficulty. The residual Viscoat elastic was then removed utilizing the automated IA machine. The wound was check and found to be watertight. The patient tolerated the procedure well and the lid speculum was removed. Intracameral injection of Vigamox 0.1 mL followed by a subtenon injection of Kenalog-40 0.2 mL were administered. The patient will be seen in the a.m.
[2024-10-26 08:53] VITALS: BP 164/90; PULSE 88; RESP 18; TEMP 36.2; O2SAT 99
[2024-10-26 09:08] VITALS: BP 159/84; PULSE 83; RESP 16; TEMP 36.2; O2SAT 97
== END 2024-10-26 09:40 | disposition home or self-care (01) ==
PROVIDERS: PCP Internal Medicine; Visit Provider Ophthalmology
PROC: (CPT 66985; principal; 2024-10-26 08:30)
DX: H25.12 Age-related nuclear cataract, left eye (principal); H54.7 Unspecified visual loss; H40.052 Ocular hypertension, left eye; H35.312 Nonexudative age-related macular degeneration, left eye; H40.9 Unspecified glaucoma; E11.22 Type 2 diabetes mellitus with diabetic chronic kidney disease; I12.9 Hypertensive chronic kidney disease with stage 1 through stage 4 chronic kidney disease, or unspecified chronic kidney disease; N18.30 Chronic kidney disease, stage 3 unspecified; E78.00 Pure hypercholesterolemia, unspecified; J45.909 Unspecified asthma, uncomplicated; Z79.51 Long term (current) use of inhaled steroids; Z79.4 Long term (current) use of insulin; Z79.84 Long term (current) use of oral hypoglycemic drugs; Z79.85 Long-term (current) use of injectable non-insulin antidiabetic drugs; Z79.899 Other long term (current) drug therapy; Z88.5 Allergy status to narcotic agent; Z88.8 Allergy status to other drugs, medicaments and biological substances
CPT/HCPCS: 66984; 82947; J3010; J3301; V2630

== ENCOUNTER 2025-01-18 08:30 | Outpatient (REF) | payer OTHER, SELFPAY ==
[2025-01-18 08:51] LABS: MANUAL DIFF FLAG NO
--- OUTSIDE RECORDS SUMMARY | 2025-01-18 08:56 | XMS_ITS | Patient Health Record ---
Author Organization [facility] Address [address] [place] [address] Care Team Providers Care Supervisor Logging Name Role Phone FE GONZALEZ Primary Care Provider Candice Russell Unavailable [phone] Allergies Allergen (clinical drug ingredient) Drug/Non Drug Allergy documented on EMR Reaction Allergy Type Onset Date Status Tylenol/Codeine #3 Vomiting Drug Allergy Active Reason For Referral No Information Medications Medication SIG (Take, Route, Frequency, Duration) Notes Start Date End Date Status Vitamin B12 1000 MCG 1 tablet Orally Onc e a day Active Ocuvite Adult 50+ - 1 capsule Orally Onc e a day Active A Thru Z Select 50+ Advanced - 1 tab Orally daily Active [place] 3 1000 MG 1 capsule Orally Twice a day Active Doxycycline Hyclate 100 MG 1 capsule Orally Twice a day for 10 days 12/24/2018 Active Simvastatin 10 MG 1 tablet in the evening Orally at bedtime Active Omeprazole 20 MG 1 capsule Orally Onc e a day Active metFORMIN HCl ER 500MG 2 TABS BID Active amLODIPine Besylate 2.5 MG 1 tablet Orally Once a day Active Loratadine 10 MG 1 tablet Orally Once a day Active Inulin Trouzeo 12 units Act lana Pyridium 200 MG 1 tablet after meals Orally Three times a day for 2 day(s) 12/22/2018 Active Fluticasone Propionate 50 MCG/ACT 1 spray in each nostril Nasally Once a day Active ProAir HFA 108 (90 Base) MCG/ACT 2 puffs as needed Inhalation every 6 hrs Active Trulicity 0.75 MG/0.5ML 0.5 ml Subcutaneous Active Alendronate Sodium 70 MG 1 tablet Orally Once a week Active Social History Tobacco Use: Social History Observation Description Date Details (start date - stop date) Never Smoker NA - NA Tobacco Use/Smoking Question Answer Notes Are you a nonsmoker Alcohol Screen (Audit-C) Question Answer Notes Did you have a drink containing alcohol in the p ast year? No Points 0 Interpretation Negative Sexual History Question Answer Notes Had sex in the past 12 months (vaginal, oral, or anal)? No Have you ever had a Sexually transmitted disease ? 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) Active confirmed Problem Age-related osteoporosis (465600971) Age-related osteoporosis without current pathological fracture (M81.0) Active confirmed Problem Cystocele (478871527) Cystocele, unspecified (N81.10) Active confirmed Plan Of Treatment Pending Test Test Name Order Date COMPLETE URINALYSIS 12/24/2018 URINE CULTURE 12/24/2018 Insurance Providers Payer Name Payer Address Payer Phone Subscriber Number Group Number Insured Name Patient Relationship to Insured Coverage Start Date Coverage End Date [facility] [address] [address] [place] [phone] [id number] JOE GILMORE Self - patient is the insured Medical (General) History Medical History History ICD Code Other asthma J45.998 Essential (primary) hypertension I10 Type 2 diabetes mellitus with unspecifie d complications E11.8 Age-related osteoporosis without current pathological fracture M81.0 Stomach ulcer Surgical History Surgery Date(Month/Year) Colonoscopy Hysterectomy 2008 Hospitalization History Reason Date(Month/Year) 4 Vaginal Deliveries See Surgical Hx
[2025-01-18 09:27] LABS: Basophils Absolute Auto 0.1 X10*3/uL (0.0-0.2); Basophils Percent Auto 0.6 % (0-2); Eosinophils Absolute Auto 0.3 X10*3/uL (0.0-0.4); Eosinophils Percent Auto 3.7 % (0-4); Hematocrit 37.8 % (37.0-47.0); Hemoglobin 12.3 g/dl (12.0-16.0); Imm Gran Abs Auto 0.04 X10*3/uL (0.00-0.03); Imm Gran Pct Auto 0.5 % (0.0-0.4); Lymphocytes Absolute Auto 2.7 X10*3/uL (1.2-4.9); Lymphocytes Percent Auto 34.4 % (20-40); Mean Corpuscular HGB Conc 32.5 g/dl (31.0-35.0); Mean Corpuscular Hemoglobin 29.9 pg (27.0-33.0); Mean Platelet Volume 9.3 fL (9.4-12.3); Monocytes Absolute Auto 0.6 X10*3/uL (0.1-1.2); Monocytes Percent Auto 8.1 % (2-11); Neutrophils Absolute Auto 4.1 x10*3/uL (2.0-8.3); Neutrophils Percent Auto 52.7 % (45-73); Platelet Count 364 X10*3/uL (160-400); Red Blood Count 4.11 X10*6/uL (4.20-5.50); Red Cell Distribution Width 13.4 % (11.0-16.0); White Blood Count 7.8 X10*3/uL (4.8-10.8)
[2025-01-18 09:34] LABS: Appearance Urine Clear; Color Urine Yellow; Glucose Urine UA Negative (Negative); Leukocyte Esterase Urine Moderate (2+) (Negative); Nitrite Urine Negative (Negative); PH 6.5 (5.0-9.0); Specific Gravity - Urine 1.015 (1.005-1.025); UMIC TRIGGER UACC YES; Urine Blood Negative (Negative); Urine Ketones Negative (Negative); Urine Protein Negative (Neg-Trace)
[2025-01-18 09:38] LABS: Estimated Average Glucose 163 mg/dL; Hemoglobin A1c % 7.3 % (<6.0); Total Hemoglobin (HGBA1C) 3356.6414 umol/L
[2025-01-18 09:39] LABS: Bacteria Urine 1+ (None Seen); Hyaline Casts Urine 0-2 /LPF (0-2); RBC Urine 0-2 /HPF (0-2); Squamous Epithelial Cell Urine 0-2 /HPF (0-2); UACC Culture Trigger YES; WBC Urine 21-50 /HPF (0-5)
[2025-01-18 10:13] LABS: Creatinine Urine 57.94 mg/dL
[2025-01-18 10:16] LABS: Alanine Aminotransferase 20 U/L (0-31); Albumin Level 4.4 g/dL (3.5-5.0); Alkaline Phosphatase 47 U/L (39-117); Anion Gap 12 (12-20); Aspartate Amino Transferase 29 U/L (5-31); Bilirubin Total 0.4 mg/dL (0.0-1.0); Blood Urea Nitrogen 26 mg/dL (9-16); Carbon Dioxide 27 mmol/L (22-29); Chloride 105 mmol/L (96-108); Cholesterol 159 mg/dL (<200); Estimated Glomerular Filt Rate 41; Glucose Fasting 106 mg/dL (60-99); HDL Cholesterol 49 mg/dL (>40); LDL Cholesterol Calculated 88 mg/dL (<100); Potassium 4.1 mmol/L (3.3-5.1); Sodium 140 mmol/L (135-145); Total Protein 7.9 g/dL (6.5-8.0); Triglycerides 113 mg/dL (<150)
[2025-01-18 10:20] LABS: TSH reflex Free T4 1.05 uIU/mL (0.32-4.0); Vitamin D 25-OH Total 67.6 ng/mL (>30)
== END 2025-01-18 08:31 | disposition home or self-care (01) ==
LOC: HO.LAB 08:30
PROVIDERS: PCP Internal Medicine; Visit Provider Internal Medicine
DX: D64.9 Anemia, unspecified (principal); E11.9 Type 2 diabetes mellitus without complications; E55.9 Vitamin D deficiency, unspecified; E78.00 Pure hypercholesterolemia, unspecified; R30.0 Dysuria
CPT/HCPCS: 36415; 80053; 80061; 81001; 82043; 82306; 82570; 83036; 84443; 85025; 87086; 87088; 87186

== ENCOUNTER 2025-01-20 13:53 | Outpatient (AMB) | payer OTHER, SELFPAY ==
[2025-01-20 13:55] VITALS: BP 130/54; PULSE 102; O2SAT 96; BMI 22.6
--- NOTE | 2025-01-20 13:55 | A.OFFPC_ITS ---
Vital Signs 01/20/25 13:55 Height 4 ft 11 in Weight 112 lb 2 oz BMI 22.6 BP 130/54 L Blood Pressure Location Lt brachial Position Sitting Pulse 102 H Pulse Source Pulse Oximeter Pulse Oximetry (%) 96 Oxygen Delivery Method Room Air Intake Visit Reasons: DM, CKD, hyperlipidemia, HTN, asthma Adjunct Faculty Instructor Required: No Accompanied by: Self / Same As Patient Allergies codeine [CODEINE] Adverse Reaction (Intermediate, Verified 01/20/25 14:21) DIZZINESS Medication List - Last Reconciled 01/20/25 by Todd Thompson MD albuterol sulfate 90 mcg/actuation (Ventolin HFA) 2 puffs inhalation Q4-6H PRN amlodipine 2.5 mg PO DAILY 90 days ascorbate calcium (vitamin C) 500 mg PO DAILY 90 days azithromycin take 500 mg today (day 1), then 250 mg for 4 days (days 2-5) PO blood sugar diagnostic (FreeStyle Lite Strips) As directed- In Vitro three times a day. blood sugar diagnostic (FreeStyle Lite Strips) 1 strip miscellaneous TID blood-glucose meter (FreeStyle Lite Meter kit) check sugar once per day calcium carbonate-vitamin D3 600 mg-10 mcg (400 unit) 1 tab PO DAILY 90 days Centrum Silver 0.4 mg-300 mcg- 250 mcg (ahgoinvw-ezs-WQ-lycopen-lutein) 1 tab PO DAILY 90 days NS cranberry extract (Cranberry Concentrate) 500 mg PO DAILY 90 days cyanocobalamin (vitamin B-12) (Vitamin B-12) 100 mcg PO DAILY dorzolamide-timolol 22.3-6.8 mg/mL 1 drp ophthalmic (eye) BID fluticasone propionate 50 mcg/actuation 1 spray intranasal DAILY kvrhhkkzmyv-jaupkndmf-iuepaerb 200-62.5-25 mcg (Trelegy Ellipta) 1 inh inhalation DAILY 30 days insulin glargine U-300 conc (Toujeo SoloStar U-300 Insulin) 10 units subcut QAM latanoprost 0.005% 1 drp ophthalmic (eye) BEDTIME lisinopril 2.5 mg PO DAILY 90 days loratadine 10 mg PO DAILY PRN 90 days metformin ER 1,000 mg (2 x 500 mg) PO BID omeprazole 20 mg PO DAILY pen needle, diabetic (BD Shonna 2nd Gen Pen Needle) As directed once a day [POISE Bladder Pads #4 (regular) As directed ] semaglutide (Ozempic) 0.5 mg (0.736 mL) subcut QWEEK 4 weeks simvastatin 10 mg PO BEDTIME 90 days Tobacco use date assessed: 01/20/25 Fall risk assessment: No Falls in past year Last assessed Fall Risk: 01/20/25 Dental Screening Dental Screen Date: 01/20/25 Did you have a dental visit in the last 12 months?: Yes Did you have a dental problem in the last 6 months where you did not have access to dental care?: No Was dental information given to patient?: Patient has dentist HPI DM, CKD, hyperlipidemia, HTN, asthma HPI Details Patient comes in today for her follow up visit States that she has been experiencing recurrent headaches for the past few weeks Also relates (+) transient dizziness at times Recalls that she was diagnosed with a meningioma a few years ago and also had a subdural hematoma back in 2022 and she is concerned that these may be what is causing her recent headaches and dizziness She denies any chest pains, no increased SOB - states that her asthma has been well-controlled on Trelegy although she uses her Trelegy inhaler only as needed No nausea/vomiting, no abdominal pain No change in bowel habits noted Needs her Toujeo and Ozempic Rx refilled She had her follow up labs done a couple of days ago - to discuss her results [facility] Medical History (Updated 01/20/25 @ 14:46 by Todd Thompson MD) Calcified cerebral meningioma Subdural hematoma Chronic kidney disease, stage III (moderate) Glaucoma, left eye Macular degeneration Allergic rhinitis Osteoporosis GERD (gastroesophageal reflux disease) Asthma Pure hypercholesterolemia Type 2 diabetes mellitus with diabetic chronic kidney disease Benign essential hypertension Surgical History History of surgery of uterus Hx of colonoscopy Family History Father Unknown family medical history Mother Hyperten preg NOS-unspec Heart disease Social History Housing: Apartment Are you a primary foster care case manager to a significant other at home: No Do you presently have visiting nurse or other home services: No Alcohol intake: never Patient Tobacco Use Status: Never used Tobacco e-Cigarette/Vaping Use: Never Used Second Hand Smoke Exposure: No service: No Current occupational status: retired Cognitive needs: No Hearing needs: No Vision needs: Yes Questionnaire PHQ-9 Over the last 2 weeks, how often have you been bothered by any of the following problems? 1. Little interest or pleasure in doing things: not at all 2. Feeling down, depressed, or hopeless: not at all 3. Trouble falling or staying asleep, or sleeping too much: not at all 4. Feeling tired or having little energy: not at all 5. Poor appetite or overeating: not at all 6. Feeling bad about yourself - or that you are a failure or have let yourself or your family down: not at all 7. Trouble concentrating on things, such as reading the newspaper or watching television: not at all 8. Moving or speaking so slowly that other people could have noticed. Or the opposite - being so fidgety or restless that you have been moving around a lot more than usual: not at all 9. Thoughts that you would be better off or of hurting yourself in some way: not at all Total score: 0 Depression Screening Interpretation: Negative Depression Screening Done: Yes 71826 - PHQ-9 Billing: Yes Source: Developed by Drs. Scott Feng, Whitney Villeda, Garett Greenberg and colleagues, with an educational cale from [employer]. Thrive Questionnaire Date Thrive assessed: 01/20/25 I am a: Patient What is your living situation today?: I have a steady place to live Within the past 12 months, did the food you bought not last and you didn't have the money to get more?: Never true Within the past 12 months, did you worry whether your food would run out before you got money to buy more?: Never true Do you have trouble paying for medicines?: No Do you have trouble getting transportation to medical appointments?: No Do you have trouble paying your heating and electricity bill?: No Do you have trouble taking care of your child, family member or friend?: No Do you have trouble with day-to-day activities such as bathing, preparing meals, shopping, managing finances, etc.?: No Are you currently unemployed and looking for a job?: No Are you interested in more education?: No Please select the resources that you would like help with: None Currently or been in a relationship where the following occur: No concerns reported THRIVE Score: 0 AUDIT C Alcohol Use Questionnaire (AUDIT-C) 1. How often do you have a drink containing alcohol?: Never 3. How often do you have six or more drinks on one occasion?: Never Total Score: 0 Score Reviewed/Action Taken: Yes INGA-7 AMB Questionnaire INGA-7 Date INGA - 7 assessed: 01/20/25 Feeling nervous, anxious, or on edge: 0 = Not at all Not being able to stop or control worryin = Not at all Worrying too much about different things: 0 = Not at all Trouble relaxin = Not at all Being so restless that it is hard to sit still: 0 = Not at all Becoming easily annoyed or irritable: 0 = Not at all Feeling afraid as if something awful might happen: 0 = Not at all Total INGA-7 score (0-4 normal; 5-9 mild; 10-14 moderate; 15-21 severe): 0 Source: Developed by Drs. Scott Feng, Whitney Villeda, Garett Greenberg and colleagues, with an educational cale from [employer]. Review of Systems Const Denies chills, Denies fatigue, Denies fever(s) and Reports headache(s) (recurrent) ENT Denies dysphagia, Reports dizziness (on and off), Denies otalgia, Reports headache(s) (recurrent), Denies neck pain, Denies odynophagia and Denies sore throat Card Denies chest pain, Denies irregular heart rhythm, Denies palpitations and Denies dyspnea Resp Denies chest congestion, Denies cough, Denies hemoptysis and Denies dyspnea GI Denies abdominal pain, Denies constipation, Denies dysphagia, Denies heartburn, Denies diarrhea, Denies nausea, Denies odynophagia and Denies vomiting Denies urinary frequency, Denies difficulty voiding, Denies dysuria, Denies urinary incontinence and Denies urinary urgency Musc Denies back pain, Denies arthralgias and Denies neck pain Skin/Breast Denies rash Neuro Reports dizziness (on and off), Reports headache(s) (recurrent) and Denies paresthesias Psych Denies anxiety and Denies depression Endo Denies fatigue and Denies palpitations Bennie/Lymph Denies easy bruising Physical exam (Primary Care) Vital Signs: Last Vital Signs Pulse 102 H 01/20/25 13:55 BP 130/54 L 01/20/25 13:55 Pulse Ox 96 01/20/25 13:55 Oxygen Delivery Method Room Air 01/20/25 13:55 BMI result Body Mass Index 22.6 Tobacco/Smoking Status: Tobacco use Status Tobacco use date assessed 01/20/25 01/20/25 14:05 Patient Tobacco Use Status Never used Tobacco 01/20/25 14:05 e-Cigarette/Vaping Use Never Used 01/20/25 14:05 PHQ-9: PHQ-9 Score PHQ-9: Total score 0 01/20/25 14:05 Depression Screening Interpretation: Negative Thrive Assessment: Date of Thrive Assessment Date Thrive assessed 01/20/25 01/20/25 14:05 Currently or been in a relationship where the following occur: No concerns reported Const General: no acute distress and alert HENMT Ears: TM's normal bilaterally and EAC's normal Throat: Yes posterior oropharynx normal and Yes tonsils normal (no TP congestion) Neck Neck: Yes no lymphadenopathy and Yes supple Thyroid: Thyroid normal Resp Auscultation: clear to auscultation bilaterally, no rales and no wheezes Cardio Rate: regular rate Rhythm: regular rhythm Heart sounds: no murmurs GI Palpation (GI): Soft to palpation and nontender Auscultation: normal bowel sounds General: Yes no CVA tenderness Back/Spine/Pelvis Back: no CVA tenderness Thoracic/Lumbar Spine: No lumbar spinal tenderness Skin Rashes: no rashes Extrem General: Yes no clubbing, cyanosis or edema Results Reviewed Results Reviewed: Laboratory Tests 01/18/25 01/18/25 08:47 08:51 WBC 7.8 Hgb 12.3 Hct 37.8 Plt Count 364 D Sodium 140 Potassium 4.1 Creatinine 1.24 Estimated GFR 41 Fasting Glucose 106 H Hemoglobin A1c % 7.3 H Calcium 10.0 AST 29 ALT 20 Triglycerides 113 Cholesterol 159 LDL Cholesterol, Calc 88 HDL Cholesterol 49 25-OH Vitamin D Total 67.6 TSH 1.05 Ur Specific [place] 1.015 Urine Protein Negative Urine Glucose (UA) Negative Urine Blood Negative Urine Nitrite Negative Ur Leukocyte Esterase Moderate (2+) H Microalb/Creat Ratio 50.0 H Coding Level of Care Code Est Pt Level 4 (68157) Complex EM visit Add On G2211 Diagnoses Type 2 diabetes mellitus with stage 2 chronic kidney disease, with long-term current use of insulin E11.22; N18.2; Z79.4 Diabetes mellitus half-way insulin use: with termite control service representative use Chronic kidney disease stage: stage 2 (mild) Stage 3b chronic kidney disease N18.32 Chronic kidney disease stage 3 subtype: stage 3b (GFR 30-44) Pure hypercholesterolemia E78.00 Benign essential hypertension I10 Gastroesophageal reflux disease without esophagitis K21.9 Esophagitis presence: without esophagitis Moderate persistent asthma without complication J45.40 Asthma severity: moderate Asthma persistence: persistent Asthma complication type: uncomplicated Allergic rhinitis, unspecified seasonality, unspecified trigger J30.9 Allergic rhinitis trigger: unspecified Allergic rhinitis seasonality: unspecified Age-related osteoporosis without current pathological fracture M81.0 Osteoporosis type: age-related Presence of current pathological fracture: without current pathological fr acture Calcified cerebral meningioma D32.0 Increased severity of headaches R51.9 Macular degeneration of left eye, unspecified type H35.30 Macular degeneration type: unspecified type Eye laterality: left Glaucoma of left eye, unspecified glaucoma type H40.9 Glaucoma type: unspecified Additional Codes PHQ-9 - 25967 - PHQ-9 Billing: Yes ([id number]) Assessment & Plan Assessment & Plan (1) Type 2 diabetes mellitus with diabetic chronic kidney disease: Code(s): E11.22 - Type 2 diabetes mellitus with diabetic chronic kidney disease Category: Medical Qualifiers: Diabetes mellitus half-way insulin use: with half-way use Chronic kidney disease stage: stage 2 (mild) Qualified Code(s): E11.22 - Type 2 diabetes mellitus with diabetic chronic kidney disease; N18.2 - Chronic kidney disease, stage 2 (mild); Z79.4 - alf (current) use of insulin Plan: Patient's HgbA1c was at 7.3% on her labs done a couple of days ago (HgbA1c was previously at 6.9% a few months ago) - goal is at least <7.0% Reinforced diabetic diet Continue Metformin ER 500 mg 2 tabs BID and Ozempic 0.5 mg SQ once a week - patient was taking only 0.25 mg of Ozempic and she is instructed to go back up to 0.5 mg Will increase her Toujeo Solostar from 10 units to 15 units SQ QD Will recheck her FBS and HgbA1c in 4 months for follow up (2) Chronic kidney disease, stage III (moderate): Code(s): N18.30 - Chronic kidney disease, stage 3 unspecified Category: Medical Qualifiers: Chronic kidney disease stage 3 subtype: stage 3b (GFR 30-44) Qualified Code(s): N18.32 - Chronic kidney disease, stage 3b Plan: Stable - will continue to monitor her GFR and renal function regularly (3) Pure hypercholesterolemia: Code(s): E78.00 - Pure hypercholesterolemia, unspecified Category: Medical Plan: Results of her labs done a couple of days ago reviewed and discussed with patient Reinforced low cholesterol diet Continue Simvastatin 10 mg QD and Fish Oil capsules BID Will recheck her labs and fasting lipids in 4 months for follow up (4) Benign essential hypertension: Code(s): I10 - Essential (primary) hypertension Category: Medical Plan: Reinforced low sodium diet - goal is systolic BP of at least 130 to 140 mm or less Continue Lisinopril 2.5 mg QD and Amlodipine 2.5 mg QD (5) GERD (gastroesophageal reflux disease): Code(s): K21.9 - Gastro-esophageal reflux disease without esophagitis Category: Medical Qualifiers: Esophagitis presence: without esophagitis Qualified Code(s): K21.9 - Gastro-esophageal reflux disease without esophagitis Plan: Dietary restrictions reinforced (6) Asthma: Code(s): J45.909 - Unspecified asthma, uncomplicated Category: Medical Qualifiers: Asthma severity: moderate Asthma persistence: persistent Asthma complication type: uncomplicated Qualified Code(s): J45.40 - Moderate persistent asthma, uncomplicated Plan: Controlled - patient states that she has not needed to use her rescue inhaler over the past few months Continue Trelegy Ellipta 200-62.5-25 mcg 1 inhalation QD and Albuterol HFA 1 to 2 inhalations Q 6 hours PRN Follow up with pulmonary as scheduled (7) Allergic rhinitis: Code(s): J30.9 - Allergic rhinitis, unspecified Category: Medical Qualifiers: Allergic rhinitis trigger: unspecified Allergic rhinitis seasonality: unspecified Qualified Code(s): J30.9 - Allergic rhinitis, unspecified Plan: Continue Loratadine 10 mg QD PRN and Fluticasone nasal spray QD PRN (8) Osteoporosis: Code(s): M81.0 - Age-related osteoporosis without current pathological fracture Category: Medical Qualifiers: Osteoporosis type: age-related Presence of current pathological fracture: without current pathological fracture Qualified Code(s): M81.0 - Age- related osteoporosis without current pathological fracture Plan: Repeat BMD done most recently on 12/06/2023 showed no significant change in her overall BMD from her previous scan on 11/19/2018 - the lowest T-score is at -2.9 in the lumbar spine Continue oral Calcium and Vitamin D supplements daily She completed Tx with Alendronate for more than 5 years and Rx was discontinued a couple of years ago Fall precautions reinforced Will continue to monitor her BMD regularly (9) Calcified cerebral meningioma: Code(s): D32.0 - Benign neoplasm of cerebral meninges Category: Medical Plan: Head CT done on 12/06/2022 incidentally revealed a large bilobed calcified meningioma along the vertex line Per neurosurgery, as she has no acute neurologic symptoms, no further follow up or intervention for this is needed (10) Increased severity of headaches: Code(s): R51.9 - Headache, unspecified Category: Medical Plan: Due to her recent increased headaches and on and off dizziness, as well as her Hx of meningioma and the (acute) subdural hematoma seen on her head CT a couple of years ago (2022), will send her for repeat head CT [facility] for further evaluation (11) Macular degeneration: Code(s): H35.30 - Unspecified macular degeneration Category: Medical Qualifiers: Macular degeneration type: unspecified type Eye laterality: left Qualified Code(s): H35.30 - Unspecified macular degeneration Plan: Patient states that she gets injections (Avastin?) into her eyes regularly from Dr. Ton Angeles in [place] Follow up with ophthalmology and retina specialist as scheduled (12) Glaucoma, left eye: Code(s): H40.9 - Unspecified glaucoma Category: Medical Qualifiers: Glaucoma type: unspecified Qualified Code(s): H40.9 - Unspecified glaucoma Plan: Continue Latanoprost 0.005% and Dorzolamide 2% eye drops into the left eye Follow up with ophthalmology as scheduled Plan Follow up in 4 months Orders: Orders CT head/brain wo IV con Today D32.0 - Benign neoplasm of cerebral meninges, R51.9 - Headache, unspecified, S06.5XAA - Traumatic subdural hemorrhage with loss of consciousness status unknown, initial encounter Microalbumin, Random (w Creat) 4 Months E11.9 - Type 2 diabetes mellitus without complications Vitamin D 25-OH Total 4 Months E55.9 - Vitamin D deficiency, unspecified Vitamin B12 and Folate 4 Months E53.8 - Deficiency of other specified B group vitamins Hemoglobin A1c 4 Months E11.9 - Type 2 diabetes mellitus without complications Complete Blood Count Auto Diff 4 Months D64.9 - Anemia, unspecified Comprehensive [place]. Panel Fast 4 Months E78.00 - Pure hypercholesterolemia, unspecified Lipid Panel 4 Months E78.00 - Pure hypercholesterolemia, unspecified TSH reflex Free T4 4 Months E78.00 - Pure hypercholesterolemia, unspecified UA CC w/rflx Micro + Cult 4 Months R30.0 - Dysuria Medications: Changed From insulin glargine U-300 conc (Toujeo SoloStar U-300 Insulin) 10 units subcut QAM To insulin glargine U-300 conc (Toujeo SoloStar U-300 Insulin) 15 units (0.05 mL) subcut QAM 4.5 mL 1RF Refilled semaglutide (Ozempic) takes on Wednesdays 0.5 mg (0.736 mL) subcut QWEEK 4 weeks 3 mL 2RF
--- OUTSIDE RECORDS SUMMARY | 2025-01-20 16:36 | XMS_ITS | Patient Health Record ---
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) Active confirmed Problem Age-related osteoporosis ([id number]) Age-related osteoporosis without current pathological fracture (M81.0) Active confirmed Problem Cystocele (363224825) Cystocele, unspecified (N81.10) Active confirmed Plan Of Treatment Pending Test Test Name Order Date COMPLETE URINALYSIS 12/24/2018 URINE CULTURE 12/24/2018 Insurance Providers Payer Name Payer Address Payer Phone Subscriber Number Group Number Insured Name Patient Relationship to Insured Coverage Start Date Coverage End Date [facility] [address] [address] [place] [phone] [id number] JOE GILMORE Self - patient is the [...]
== END 2025-01-20 14:43 | disposition home or self-care (01) ==
LOC: HO.HMCH 13:53
PROVIDERS: PCP Internal Medicine; Visit Provider Internal Medicine
DX: I12.9 Hypertensive chronic kidney disease with stage 1 through stage 4 chronic kidney disease, or unspecified chronic kidney disease (principal); E11.22 Type 2 diabetes mellitus with diabetic chronic kidney disease; Z79.4 Long term (current) use of insulin; N18.32 Chronic kidney disease, stage 3b; D32.0 Benign neoplasm of cerebral meninges; N18.2 Chronic kidney disease, stage 2 (mild); E78.00 Pure hypercholesterolemia, unspecified; K21.9 Gastro-esophageal reflux disease without esophagitis; J45.40 Moderate persistent asthma, uncomplicated; J30.9 Allergic rhinitis, unspecified; M81.0 Age-related osteoporosis without current pathological fracture; R51.9 Headache, unspecified

== ENCOUNTER → 2025-01-20 13:53 | Outpatient (BNVA) | payer OTHER, SELFPAY | PROVIDERS: PCP Internal Medicine; Visit Provider Internal Medicine | DX: E11.22 Type 2 diabetes mellitus with diabetic chronic kidney disease (principal); I12.9 Hypertensive chronic kidney disease with stage 1 through stage 4 chronic kidney disease, or unspecified chronic kidney disease; N18.32 Chronic kidney disease, stage 3b; E78.00 Pure hypercholesterolemia, unspecified; K21.9 Gastro-esophageal reflux disease without esophagitis; J45.40 Moderate persistent asthma, uncomplicated; J30.9 Allergic rhinitis, unspecified; M81.0 Age-related osteoporosis without current pathological fracture; D32.0 Benign neoplasm of cerebral meninges; R51.9 Headache, unspecified; H35.30 Unspecified macular degeneration; H40.9 Unspecified glaucoma; Z79.4 Long term (current) use of insulin; Z79.84 Long term (current) use of oral hypoglycemic drugs; Z79.899 Other long term (current) drug therapy | CPT/HCPCS: 96127; 99212 ==

== ENCOUNTER 2025-07-16 08:25 | Outpatient (REF) | payer OTHER, SELFPAY ==
[2025-07-16 08:56] LABS: MANUAL DIFF FLAG NO
[2025-07-16 09:51] LABS: Hematocrit 37.6 % (37.0-47.0); Hemoglobin 12.4 g/dl (12.0-16.0); Imm Gran Abs Auto 0.02 X10*3/uL (0.00-0.03); Imm Gran Pct Auto 0.3 % (0.0-0.4); Lymphocytes Absolute Auto 2.5 X10*3/uL (1.2-4.9); Mean Corpuscular HGB Conc 33.0 g/dl (31.0-35.0); Mean Corpuscular Hemoglobin 30.1 pg (27.0-33.0); Mean Corpuscular Volume 91.3 fL (80.0-98.0); NRBC Abs Auto 0.000 X10*3/uL (0.0-0.012); NRBC Pct Auto 0.0 /100WBC (0.0-0.2); Platelet Count 370 X10*3/uL (160-400); Red Blood Count 4.12 X10*6/uL (4.20-5.50); White Blood Count 7.5 X10*3/uL (4.8-10.8)
[2025-07-16 10:31] LABS: Appearance Urine Clear; Glucose Urine UA Negative (Negative); PH 6.0 (5.0-9.0); Specific Gravity - Urine 1.015 (1.005-1.025); UMIC TRIGGER UACC YES
[2025-07-16 10:35] LABS: Alanine Aminotransferase 15 U/L (0-31); Albumin Level 4.5 g/dL (3.5-5.0); Alkaline Phosphatase 47 U/L (39-117); Anion Gap 13 (12-20); Aspartate Amino Transferase 24 U/L (5-31); Blood Urea Nitrogen 26 mg/dL (9-16); Calcium 10.1 mg/dL (8.4-10.2); Carbon Dioxide 29 mmol/L (22-29); Chloride 104 mmol/L (96-108); Cholesterol 146 mg/dL (<200); Estimated Glomerular Filt Rate 40; HDL Cholesterol 42 mg/dL (>40); Potassium 4.8 mmol/L (3.3-5.1); Sodium 141 mmol/L (135-145); Total Protein 7.7 g/dL (6.5-8.0); Triglycerides 112 mg/dL (<150)
[2025-07-16 11:03] LABS: Microalbum/Creatinine Ratio Ur 22.8 ug/mg cr (<30)
[2025-07-16 11:05] LABS: Folate 14.4 ng/mL (> or = 4.0); Vitamin B12 482 pg/mL (200-900)
== END 2025-07-16 08:26 | disposition home or self-care (01) ==
LOC: HO.LAB 08:25
PROVIDERS: PCP Internal Medicine; Visit Provider Internal Medicine
DX: E11.9 Type 2 diabetes mellitus without complications (principal); E53.8 Deficiency of other specified B group vitamins; R30.0 Dysuria; E55.9 Vitamin D deficiency, unspecified; E78.00 Pure hypercholesterolemia, unspecified; D64.9 Anemia, unspecified
CPT/HCPCS: 36415; 80053; 80061; 81001; 81003; 82043; 82306; 82570; 82607; 82746; 83036; 84443; 85025

== ENCOUNTER 2025-07-20 13:21 | Outpatient (AMB) | payer OTHER, SELFPAY ==
[2025-07-20 13:32] VITALS: BP 106/80; PULSE 104; O2SAT 97; BMI 22.3
--- NOTE | 2025-07-20 13:32 | MHC.PC.OV ---
Vital Signs 07/20/25 13:32 07/20/25 14:19 Height 4 ft 11 in Weight 110 lb 4 oz BMI 22.3 BP 106/80 102/60 Blood Pressure Location Lt brachial Lt brachial Position Sitting Sitting Pulse 104 H Pulse Source Pulse Oximeter Pulse Oximetry (%) 97 Oxygen Delivery Method Room Air Intake Visit Reasons: annual exam Highway Safety Engineer Required: No Accompanied by: Self / Same As Patient Allergies codeine (CODEINE) Adverse Reaction (Intermediate, Verified 07/20/25 14:11) DIZZINESS Medication List - Last Reconciled 07/20/25 by Todd Thompson MD albuterol sulfate 90 mcg/actuation (Ventolin HFA) 2 puffs inhalation Q4-6H PRN amlodipine 2.5 mg PO DAILY 90 days ascorbate calcium (vitamin C) 500 mg PO DAILY 90 days azithromycin take 500 mg today (day 1), then 250 mg for 4 days (days 2-5) PO blood sugar diagnostic (FreeStyle Lite Strips) As directed- In Vitro three times a day. blood sugar diagnostic (FreeStyle Lite Strips) 1 strip miscellaneous TID blood-glucose meter (FreeStyle Lite Meter kit) check sugar once per day calcium carbonate-vitamin D3 600 mg-10 mcg (400 unit) 1 tab PO DAILY 90 days Centrum Silver 0.4 mg-300 mcg- 250 mcg (arkecmhb-bst-CL-lycopen-lutein) 1 tab PO DAILY 90 days NS cranberry extract (Cranberry Concentrate) 500 mg PO DAILY 90 days cyanocobalamin (vitamin B-12) (Vitamin B-12) 100 mcg PO DAILY dorzolamide-timolol 22.3-6.8 mg/mL 1 drp ophthalmic (eye) BID fluticasone propionate 50 mcg/actuation 1 spray intranasal DAILY matadjjpzdc-fqjbdgkoy-bjnfewtc 200-62.5-25 mcg (Trelegy Ellipta) 1 inh inhalation DAILY 30 days insulin glargine U-300 conc (Toujeo SoloStar U-300 Insulin) 15 units (0.05 mL) subcut QAM latanoprost 0.005% 1 drp ophthalmic (eye) BEDTIME lisinopril 2.5 mg PO DAILY 90 days loratadine 10 mg PO DAILY PRN 90 days metformin ER 1,000 mg (2 x 500 mg) PO BID omeprazole 20 mg PO DAILY pen needle, diabetic As directed once a day [POISE Bladder Pads #4 (regular) As directed ] semaglutide (Ozempic) 0.5 mg (0.736 mL) subcut QWEEK 4 weeks simvastatin 10 mg PO BEDTIME 90 days Tobacco use date assessed: 07/20/25 Fall risk assessment: No Falls in past year Last assessed Fall Risk: 07/20/25 Dental Screening Dental Screen Date: 07/20/25 Did you have a dental visit in the last 12 months?: Yes Did you have a dental problem in the last 6 months where you did not have access to dental care?: No Was dental information given to patient?: Patient has dentist HPI annual exam HPI Details Patient comes in today for her annual physical examination States that she feels okay She denies any headaches or increased dizziness lately Denies any chest pains, no increased SOB No nausea/vomiting, no abdominal pain No change in bowel habits noted She denies any acute urinary symptoms She had her follow up labs done last week - to discuss her results She had her annual mammogram last done in 2021 and her repeat colonoscopy back in 2013 - states that she was advised then that unless there is a specific indication, she does not need any further screening colonoscopies based on her age States that also due to her age, she no longer has to continue keeping up with her yearly gynecology exam and pap smear as well as her annual mammogram She had her BMD done last year in 2023 [facility] Medical History Calcified cerebral meningioma Subdural hematoma Chronic kidney disease, stage III (moderate) Glaucoma, left eye Macular degeneration Allergic rhinitis Osteoporosis GERD (gastroesophageal reflux disease) Asthma Pure hypercholesterolemia Type 2 diabetes mellitus with diabetic chronic kidney disease Benign essential hypertension Surgical History History of surgery of uterus Hx of colonoscopy Family History Father Unknown family medical history Mother Hyperten preg NOS-unspec Heart disease Social History Housing: Apartment Are you a primary manager wound care to a significant other at home: No Do you presently have visiting nurse or other home services: No Alcohol intake: never Patient Tobacco Use Status: Never used Tobacco e-Cigarette/Vaping Use: Never Used Second Hand Smoke Exposure: No service: No Current occupational status: retired Cognitive needs: No Hearing needs: No Vision needs: Yes Questionnaire PHQ-9 Over the last 2 weeks, how often have you been bothered by any of the following problems? 1. Little interest or pleasure in doing things: not at all 2. Feeling down, depressed, or hopeless: not at all 3. Trouble falling or staying asleep, or sleeping too much: not at all 4. Feeling tired or having little energy: not at all 5. Poor appetite or overeating: not at all 6. Feeling bad about yourself - or that you are a failure or have let yourself or your family down: several days 7. Trouble concentrating on things, such as reading the newspaper or watching television: not at all 8. Moving or speaking so slowly that other people could have noticed. Or the opposite - being so fidgety or restless that you have been moving around a lot more than usual: not at all 9. Thoughts that you would be better off or of hurting yourself in some way: not at all Total score: 1 Depression Screening Interpretation: Negative Depression Screening Done: Yes 36026 - PHQ-9 Billing: Yes Source: Developed by Drs. Scott Feng, Whitney Villeda, Garett Greenberg and colleagues, with an educational cale from [employer]. Thrive Questionnaire Date Thrive assessed: 07/20/25 I am a: Patient What is your living situation today?: I have a steady place to live Within the past 12 months, did the food you bought not last and you didn't have the money to get more?: Never true Within the past 12 months, did you worry whether your food would run out before you got money to buy more?: Never true Do you have trouble paying for medicines?: No Do you have trouble getting transportation to medical appointments?: No Do you have trouble paying your heating and electricity bill?: No Do you have trouble taking care of your child, family member or friend?: No Do you have trouble with day-to-day activities such as bathing, preparing meals, shopping, managing finances, etc.?: No Are you currently unemployed and looking for a job?: Yes Are you interested in more education?: No Please select the resources that you would like help with: None Currently or been in a relationship where the following occur: No concerns reported THRIVE Score: 0 AUDIT C Alcohol Use Questionnaire (AUDIT-C) 1. How often do you have a drink containing alcohol?: Never 3. How often do you have six or more drinks on one occasion?: Never Total Score: 0 Score Reviewed/Action Taken: Yes INGA-7 AMB Questionnaire INGA-7 Date INGA - 7 assessed: 01/20/25 Feeling nervous, anxious, or on edge: 0 = Not at all Not being able to stop or control worryin = Not at all Worrying too much about different things: 0 = Not at all Trouble relaxin = Not at all Being so restless that it is hard to sit still: 0 = Not at all Becoming easily annoyed or irritable: 0 = Not at all Feeling afraid as if something awful might happen: 0 = Not at all Total INGA-7 score (0-4 normal; 5-9 mild; 10-14 moderate; 15-21 severe): 0 Source: Developed by Drs. Scott Feng, Whitney Villeda, Garett Greenberg and colleagues, with an educational cale from [employer]. Review of Systems Const Denies chills, Denies fatigue, Denies fever(s), Denies headache(s) and Denies malaise Eyes Denies blurry vision, Denies change in vision, Denies irritation and Denies itchy eyes ENT Denies dysphagia, Denies dizziness (as long as she avoids getting up or changing positions abruptly), Denies otalgia, Denies headache(s), Denies nasal congestion, Denies neck pain, Denies odynophagia, Denies sinus pain and Denies sore throat Card Denies chest pain, Denies rapid heart rate, Denies irregular heart rhythm, Denies palpitations and Denies dyspnea Resp Denies chest congestion, Denies cough, Denies dyspnea and Denies wheezing GI Denies abdominal pain, Denies bloating, Denies constipation, Denies dysphagia, Denies heartburn, Denies diarrhea, Denies nausea, Denies odynophagia and Denies vomiting Denies hematuria, Denies difficulty voiding, Denies dysuria, Denies urinary incontinence and Denies urinary urgency Musc Denies back pain, Denies arthralgias, Denies joint swelling, Denies muscle weakness and Denies neck pain Skin/Breast Denies breast pain, Denies breast mass, Denies change in pigmentation, Denies lesions, Denies rash and Denies unusual bruising Neuro Denies dizziness (as long as she avoids getting up or changing positions abruptly), Denies headache(s) and Denies paresthesias Psych Denies anxiety and Denies depression Endo Denies fatigue and Denies palpitations Bennie/Lymph Denies easy bruising Aller/Immun Denies itchy eyes and Denies wheezing Physical exam (Primary Care) Vital Signs: Last Vital Signs Pulse 104 H 07/20/25 13:32 BP 102/60 07/20/25 14:19 Pulse Ox 97 07/20/25 13:32 Oxygen Delivery Method Room Air 07/20/25 13:32 BMI result Body Mass Index 22.3 Tobacco/Smoking Status: Tobacco use Status Tobacco use date assessed 07/20/25 07/20/25 13:33 Patient Tobacco Use Status Never used Tobacco 07/20/25 13:33 e-Cigarette/Vaping Use Never Used 07/20/25 13:33 PHQ-9: PHQ-9 Score PHQ-9: Total score 1 07/20/25 14:36 Depression Screening Interpretation: Negative Thrive Assessment: Date of Thrive Assessment Date Thrive assessed 07/20/25 07/20/25 14:36 Currently or been in a relationship where the following occur: No concerns reported Const General: no acute distress, alert and awake Orientation/consciousness: patient oriented x3 HENMT Head: Yes normocephalic and Yes atraumatic Ears: external ears normal, TM's normal bilaterally and EAC's normal General nose exam: No nasal discharge present Face and sinus: Yes normal facial exam and Yes sinuses nontender Teeth and gingiva: dentition normal Throat: Yes posterior oropharynx normal and Yes tonsils normal (no TP congestion) Eyes Eyelids: Yes eyelids normal Conjunctivae: conjunctivae normal Pupils: Equal, round and reactive pupils present EOM: EOMs intact bilaterally Neck Neck: Yes no lymphadenopathy and Yes supple Thyroid: Thyroid normal Resp Auscultation: clear to auscultation bilaterally, no rales and no wheezes Cardio Rate: regular rate Rhythm: regular rhythm Heart sounds: no murmurs GI Palpation (GI): Soft to palpation, nontender and No hepatosplenomegaly present Auscultation: normal bowel sounds General: Yes no CVA tenderness Back/Spine/Pelvis Back: no CVA tenderness Thoracic/Lumbar Spine: thoracic and lumbar spine normal to inspection Skin Lesions: no lesions Rashes: no rashes Neuro General: patient oriented x3, moves all extremities, no focal motor deficits and CN's II-XI intact bilaterally Cranial nerves: Yes Equal, round and reactive pupils present Cognition (Neuro): normal cognition Gait exam (Neuro): Normal gait present Extrem General: Yes no clubbing, cyanosis or edema Results Reviewed Results Reviewed: Laboratory Tests 07/16/25 07/16/25 08:50 08:55 WBC 7.5 Hgb 12.4 Hct 37.6 Plt Count 370 Sodium 141 Potassium 4.8 Creatinine 1.26 Estimated GFR 40 Fasting Glucose 120 H Hemoglobin A1c % 7.4 H Calcium 10.1 AST 24 ALT 15 Triglycerides 112 Cholesterol 146 LDL Cholesterol, Calc 82 HDL Cholesterol 42 Vitamin B12 482 25-OH Vitamin D Total 80.1 TSH 0.79 Ur Specific [place] 1.015 Urine Protein Negative Urine Glucose (UA) Negative Urine Blood Negative Urine Nitrite Negative Ur Leukocyte Esterase Trace H Microalb/Creat Ratio 22.8 Coding Level of Care Code Est Pt Prev Care >65y(50559) Diagnoses Annual physical exam Z00.00 Type 2 diabetes mellitus with stage 2 chronic kidney disease, with long-term current use of insulin E11.22; N18.2; Z79.4 Diabetes mellitus termite inspector insulin use: with termite inspector use Chronic kidney disease stage: stage 2 (mild) Stage 3b chronic kidney disease N18.32 Chronic kidney disease stage 3 subtype: stage 3b (GFR 30-44) Pure hypercholesterolemia E78.00 Benign essential hypertension I10 Gastroesophageal reflux disease without esophagitis K21.9 Esophagitis presence: without esophagitis Moderate persistent asthma without complication J45.40 Asthma severity: moderate Asthma persistence: persistent Asthma complication type: uncomplicated Allergic rhinitis, unspecified seasonality, unspecified trigger J30.9 Allergic rhinitis trigger: unspecified Allergic rhinitis seasonality: unspecified Age-related osteoporosis without current pathological fracture M81.0 Osteoporosis type: age-related Presence of current pathological fracture: without current pathological fracture Calcified cerebral meningioma D32.0 Increased severity of headaches R51.9 Macular degeneration of left eye, unspecified type H35.30 Macular degeneration type: unspecified type Eye laterality: left Glaucoma of left eye, unspecified glaucoma type H40.9 Glaucoma type: unspecified Additional Codes PHQ-9 - 30600 - PHQ-9 Billing: Yes ([id number]) Assessment & Plan Assessment & Plan (1) Annual physical exam: Code(s): Z00.00 - Encounter for general adult medical examination without abnormal findings Category: Medical Plan: Results of her labs done last week reviewed and discussed with patient She had her annual mammogram last done in 2021 and her repeat colonoscopy back in 2013 - states that she was advised then that unless there is a specific indication, she does not need any further screening colonoscopies based on her age States that also due to her age, she no longer has to continue keeping up with her yearly gynecology exam and pap smear as well as her annual mammogram She had her BMD done last year in 2023 (2) Type 2 diabetes mellitus with diabetic chronic kidney disease: Code(s): E11.22 - Type 2 diabetes mellitus with diabetic chronic kidney disease Category: Medical Qualifiers: Diabetes mellitus termite inspector insulin use: with termite inspector use Chronic kidney disease stage: stage 2 (mild) Qualified Code(s): E11.22 - Type 2 diabetes mellitus with diabetic chronic kidney disease; N18.2 - Chronic kidney disease, stage 2 (mild); Z79.4 - [facility] (current) use of insulin Plan: Patient's HgbA1c was at 7.4% on her labs done a few days ago (HgbA1c was previously at 7.3% a few months ago) - goal is at least <7.0% Reinforced diabetic diet Continue Metformin ER 500 mg 2 tabs BID, Ozempic 0.5 mg SQ once a week and Toujeo Solostar 15 units SQ QD for now Will recheck her FBS and HgbA1c in 4 months for follow up (3) Chronic kidney disease, stage III (moderate): Code(s): N18.30 - Chronic kidney disease, stage 3 unspecified Category: Medical Qualifiers: Chronic kidney disease stage 3 subtype: stage 3b (GFR 30-44) Qualified Code(s): N18.32 - Chronic kidney disease, stage 3b Plan: Stable - will continue to monitor her GFR and renal function regularly (4) Pure hypercholesterolemia: Code(s): E78.00 - Pure hypercholesterolemia, unspecified Category: Medical Plan: Results of her labs done a few days ago reviewed and discussed with patient Reinforced low cholesterol diet Continue Simvastatin 10 mg QD and Fish Oil capsules BID Will recheck her labs and fasting lipids in 4 months for follow up (5) Benign essential hypertension: Code(s): I10 - Essential (primary) hypertension Category: Medical Plan: Reinforced low sodium diet - goal is systolic BP of at least 130 to 140 mm or less Continue Lisinopril 2.5 mg QD and Amlodipine 2.5 mg QD (6) GERD (gastroesophageal reflux disease): Code(s): K21.9 - Gastro-esophageal reflux disease without esophagitis Category: Medical Qualifiers: Esophagitis presence: without esophagitis Qualified Code(s): K21.9 - Gastro-esophageal reflux disease without esophagitis Plan: Dietary restrictions reinforced (7) Asthma: Code(s): J45.909 - Unspecified asthma, uncomplicated Category: Medical Qualifiers: Asthma severity: moderate Asthma persistence: persistent Asthma complication type: uncomplicated Qualified Code(s): J45.40 - Moderate persistent asthma, uncomplicated Plan: Controlled - patient states that she has not needed to use her rescue inhaler over the past few months Continue Trelegy Ellipta 200-62.5-25 mcg 1 inhalation QD and Albuterol HFA 1 to 2 inhalations Q 6 hours PRN Follow up with pulmonary as scheduled (8) Allergic rhinitis: Code(s): J30.9 - Allergic rhinitis, unspecified Category: Medical Qualifiers: Allergic rhinitis trigger: unspecified Allergic rhinitis seasonality: unspecified Qualified Code(s): J30.9 - Allergic rhinitis, unspecified Plan: Continue Loratadine 10 mg QD PRN and Fluticasone nasal spray QD PRN (9) Osteoporosis: Code(s): M81.0 - Age-related osteoporosis without current pathological fracture Category: Medical Qualifiers: Osteoporosis type: age-related Presence of current pathological fracture: without current pathological fracture Qualified Code(s): M81.0 - Age-related osteoporosis without current pathological fracture Plan: Repeat BMD done most recently on 12/06/2023 showed no significant change in her overall BMD from her previous scan on 11/19/2018 - the lowest T-score is at -2.9 in the lumbar spine Continue oral Calcium and Vitamin D supplements daily She completed Tx with Alendronate for more than 5 years and Rx was discontinued a couple of years ago Fall precautions reinforced Will continue to monitor her BMD regularly (10) Calcified cerebral meningioma: Code(s): D32.0 - Benign neoplasm of cerebral meninges Category: Medical Plan: Head CT done on 12/06/2022 incidentally revealed a large bilobed calcified meningioma along the vertex line Per neurosurgery, as she has no acute neurologic symptoms, no further follow up or intervention for this is needed (11) Increased severity of headaches: Code(s): R51.9 - Headache, unspecified Category: Medical Plan: Due to her recurrent headaches and on and off dizziness at her last visit a few months ago, as well as her Hx of meningioma and the (acute) subdural hematoma seen on her head CT a couple of years ago (2022), she was sent for repeat head CT for further evaluation a few months ago but this was not done Patient states that her symptoms have subsided a lot recently and she would like to hold off on her repeat head CT for now (12) Macular degeneration: Code(s): H35.30 - Unspecified macular degeneration Category: Medical Qualifiers: Macular degeneration type: unspecified type Eye laterality: left Qualified Code(s): H35.30 - Unspecified macular degeneration Plan: Patient states that she gets injections (Avastin?) into her eyes regularly from Dr. Ton Agneles in [place] Follow up with ophthalmology and retina specialist as scheduled (13) Glaucoma, left eye: Code(s): H40.9 - Unspecified glaucoma Category: Medical Qualifiers: Glaucoma type: unspecified Qualified Code(s): H40.9 - Unspecified glaucoma Plan: Continue Latanoprost 0.005% and Dorzolamide 2% eye drops into the left eye Follow up with ophthalmology as scheduled Plan Follow up in 4 months Orders: Orders Comprehensive [place]. Panel Fast 4 Months E78.00 - Pure hypercholesterolemia, unspecified Microalbumin, Random (w Creat) 4 Months E11.9 - Type 2 diabetes mellitus without complications Hemoglobin A1c 4 Months E11.9 - Type 2 diabetes mellitus without complications UA CC w/rflx Micro + Cult 4 Months R30.0 - Dysuria Vitamin B12 and Folate 4 Months E53.8 - Deficiency of other specified B group vitamins Complete Blood Count Auto Diff 4 Months D64.9 - Anemia, unspecified Lipid Panel 4 Months E78.00 - Pure hypercholesterolemia, unspecified TSH reflex Free T4 4 Months E78.00 - Pure hypercholesterolemia, unspecified Vitamin D 25-OH Total 4 Months E55.9 - Vitamin D deficiency, unspecified
[2025-07-20 14:19] VITALS: BP 102/60
--- OUTSIDE RECORDS SUMMARY | 2025-07-20 16:09 | XMS_ITS | Patient Health Record ---
Author Organization [employer] [facility] Address [address] [place] [address] Care Team Providers Care Semiconductor Manufacturing Technician Name Role Phone FE GONZALEZ Primary Care Provider Candice Russell Unavailable [phone] Allergies Allergen (clinical drug ingredient) Drug/Non Drug [...] Advanced - 1 tab Orally daily Active [place] 3 1000 MG 1 capsule Orally Twice a day Active Doxycycline Hyclate 100 MG 1 capsule Orally Twice a day; Duration: 10 days 12/24/2018 Active Simvastatin 10 MG [...] tablet after meals Orally Three times a day; Duration: 2 day(s) 12/22/2018 Active Fluticasone Propionate 50 [...] Status Risk Notes Problem Postmenopausal atrophic vaginitis (67709584) 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) Active confirmed Problem Age-related osteoporosis (989234367) Age-related osteoporosis without current pathological fracture (M81.0) Active confirmed Problem Cystocele (689730341) Cystocele, unspecified (N81.10) Active confirmed Plan Of Treatment Pending Test Test Name Order Date COMPLETE URINALYSIS 12/24/2018 URINE CULTURE 12/24/2018 Insurance Providers Payer Name Payer Address Payer Phone Subscriber Number Group Number Insured Name Patient Relationship to Insured Coverage Start Date Coverage End Date [facility] [address] [address] [place] [phone] [id number] JOE GILMORE Self - patient is the [...]
== END 2025-07-20 14:32 | disposition home or self-care (01) ==
LOC: HO.HMCH 13:21
PROVIDERS: PCP Internal Medicine; Visit Provider Internal Medicine
DX: Z00.00 Encounter for general adult medical examination without abnormal findings (principal); E11.22 Type 2 diabetes mellitus with diabetic chronic kidney disease; N18.32 Chronic kidney disease, stage 3b; Z79.4 Long term (current) use of insulin; E78.00 Pure hypercholesterolemia, unspecified; I12.9 Hypertensive chronic kidney disease with stage 1 through stage 4 chronic kidney disease, or unspecified chronic kidney disease; K21.9 Gastro-esophageal reflux disease without esophagitis; J45.40 Moderate persistent asthma, uncomplicated; J30.9 Allergic rhinitis, unspecified; M81.0 Age-related osteoporosis without current pathological fracture; D32.0 Benign neoplasm of cerebral meninges; R51.9 Headache, unspecified; H35.30 Unspecified macular degeneration; H40.9 Unspecified glaucoma

== ENCOUNTER → 2025-07-20 13:21 | Outpatient (BNVA) | payer OTHER, SELFPAY | PROVIDERS: PCP Internal Medicine; Visit Provider Internal Medicine | DX: Z00.00 Encounter for general adult medical examination without abnormal findings (principal); E11.22 Type 2 diabetes mellitus with diabetic chronic kidney disease; I12.9 Hypertensive chronic kidney disease with stage 1 through stage 4 chronic kidney disease, or unspecified chronic kidney disease; N18.2 Chronic kidney disease, stage 2 (mild); E78.00 Pure hypercholesterolemia, unspecified; K21.9 Gastro-esophageal reflux disease without esophagitis; J45.40 Moderate persistent asthma, uncomplicated; J30.9 Allergic rhinitis, unspecified; M81.0 Age-related osteoporosis without current pathological fracture; D32.0 Benign neoplasm of cerebral meninges; R51.9 Headache, unspecified; H35.30 Unspecified macular degeneration; H40.9 Unspecified glaucoma; Z79.4 Long term (current) use of insulin | CPT/HCPCS: 96127; 99397 ==

== ENCOUNTER 2025-09-08 11:28 | Outpatient (REF) | payer OTHER, SELFPAY ==
[2025-09-08 12:25] LABS: Appearance Urine Clear; Glucose Urine UA Negative (Negative); PH 5.5 (5.0-9.0); Specific Gravity - Urine 1.010 (1.005-1.025); UMIC TRIGGER UACC YES
[2025-09-08 12:38] LABS: UACC Culture Trigger YES
--- OUTSIDE RECORDS SUMMARY | 2025-09-08 13:55 | XMS_ITS | Patient Health Record ---
Author Organization [employer] 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) Active confirmed Problem Age-related osteoporosis (212551865) Age-related osteoporosis without current pathological fracture (M81.0) Active confirmed Problem Cystocele (694660204) Cystocele, unspecified (N81.10) Active confirmed Plan Of Treatment Pending Test Test Name Order Date COMPLETE URINALYSIS 12/24/2018 URINE CULTURE 12/24/2018 Insurance Providers Payer Name Payer Address Payer Phone Subscriber Number Group Number Insured Name Patient Relationship to Insured Coverage Start Date Coverage End Date [facility] [address] [address] [place] [phone] [id number] JOE GILMORE Self - patient is the [...]
== END 2025-09-08 11:29 | disposition home or self-care (01) ==
LOC: HO.LAB 11:28
PROVIDERS: PCP Internal Medicine; Visit Provider Internal Medicine
DX: R30.0 Dysuria (principal)
CPT/HCPCS: 81001; 87086; 87088; 87186